=== PATIENT | female | born 1955 | race Caucasian/White ===

== ENCOUNTER 2019-08-02 14:40 | Outpatient (CLI) | payer BC, SELFPAY ==
[2019-08-02 14:53] LABS: Basophils Percent Auto 0.8 % (0.2-1.2); Eosinophils Absolute Auto 0.1 K/mm3 (0-0.3); Eosinophils Percent Auto 1.9 % (0-4.4); Hematocrit 36.5 % (37.0-47.0); Hemoglobin 12.4 g/dL (12.0-15.0); Immature Granulocyte Absolute 0.01 K/mm3 (0.00-0.031); Immature Granulocyte Percent A 0.2 % (0-0.5); Lymphocytes Absolute Auto 2.95 K/mm3 (0.9-3.2); Lymphocytes Percent Auto 56.1 % (18.3-44.2); Mean Corpuscular Volume 97.1 fl (80-100); Mean Platelet Volume 9.7 fl (7.4-10.4); Monocytes Absolute Auto 0.6 K/mm3 (0.1-0.6); Monocytes Percent Auto 11.4 % (2.6-8.5); Neutrophils Absolute Auto 1.6 K/mm3 (1.3-6.7); Neutrophils Percent Auto 29.6 % (45.5-73.1); Platelet Count Result 218 k/mm3 (150-375); Red Blood Count 3.76 M/mm3 (4.2-5.4); Red Cell Distribution Width 12.7 % (11.5-14.5); White Blood Count 5.3 K/mm3 (4.5-10.0)
[2019-08-02 16:04] LABS: Alanine Aminotransferase 23 U/L (4-35); Albumin Level 4.5 g/dL (3.5-5.1); Alkaline Phosphatase 45 U/L (38-126); Aspartate Amino Transferase 30 U/L (14-36); Bilirubin,Total 0.5 mg/dL (0.2-1.3); Blood Urea Nitrogen 17 mg/dL (7-17); Calcium 9.7 mg/dL (8.4-10.2); Carbon Dioxide 27 mmol/L (22-30); Chloride 95 mmol/L (98-107); Estimated Glomerular Filt Rate 56; Glucose 97 mg/dL (65-105); Lactate Dehydrogenase 405 U/L (313-618); Potassium 4.2 mmol/L (3.4-5.0); Sodium 132 mmol/L (137-145)
== END 2019-08-02 14:41 | disposition home or self-care (01) ==
LOC: ANHLAB 14:43
PROVIDERS: PCP Family Medicine; Visit Provider Internal Medicine Hematology & Oncology
DX: D72.820 Lymphocytosis (symptomatic) (principal)
CPT/HCPCS: 36415; 80053; 83615; 85025

== ENCOUNTER 2020-01-30 13:22 | Outpatient (CLI) | payer BC, SELFPAY ==
[2020-01-30 13:42] LABS: Basophils Percent Auto 0.6 % (0.2-1.2); Eosinophils Absolute Auto 0.1 K/mm3 (0-0.3); Eosinophils Percent Auto 1.2 % (0-4.4); Hemoglobin 12.5 g/dL (12.0-15.0); Immature Granulocyte Absolute 0.01 K/mm3 (0.00-0.031); Immature Granulocyte Percent A 0.2 % (0-0.5); Lymphocytes Absolute Auto 2.17 K/mm3 (0.9-3.2); Lymphocytes Percent Auto 44.4 % (18.3-44.2); Mean Corpuscular HGB Conc 32.9 g/dl (32-36); Mean Corpuscular Hemoglobin 32.1 pg (26-34); Mean Corpuscular Volume 97.4 fl (80-100); Mean Platelet Volume 9.7 fl (7.4-10.4); Monocytes Absolute Auto 0.6 K/mm3 (0.1-0.6); Monocytes Percent Auto 11.2 % (2.6-8.5); Neutrophils Absolute Auto 2.1 K/mm3 (1.3-6.7); Neutrophils Percent Auto 42.4 % (45.5-73.1); Platelet Count Result 213 k/mm3 (150-375); Red Cell Distribution Width 13.2 % (11.5-14.5); White Blood Count 4.9 K/mm3 (4.5-10.0)
[2020-01-30 16:40] LABS: Sodium Urine Random 108 meq/L
[2020-01-30 16:43] LABS: Alanine Aminotransferase 21 U/L (4-35); Albumin Level 4.5 g/dL (3.5-5.1); Alkaline Phosphatase 48 U/L (38-126); Anion Gap 12.1 mmol/L (7-16); Aspartate Amino Transferase 29 U/L (14-36); Bilirubin,Total 0.7 mg/dL (0.2-1.3); Blood Urea Nitrogen 12 mg/dL (7-17); Calcium 9.7 mg/dL (8.4-10.2); Carbon Dioxide 28 mmol/L (22-30); Chloride 101 mmol/L (98-107); Cholesterol 200 mg/dL (0-200); Estimated Glomerular Filt Rate > 60; Glucose 119 mg/dL (65-105); HDL Direct 73 mg/dL; Lactate Dehydrogenase 375 U/L (313-618); Potassium 5.1 mmol/L (3.4-5.0); Sodium 136 mmol/L (137-145); Triglycerides 61 mg/dL (<150)
[2020-01-30 16:54] LABS: LDL Cholesterol Direct 104 mg/dL
== END 2020-01-30 13:23 | disposition home or self-care (01) ==
PROVIDERS: PCP Family Medicine; Visit Provider Internal Medicine Hematology & Oncology
DX: E78.2 Mixed hyperlipidemia (principal); I10 Essential (primary) hypertension; E87.1 Hypo-osmolality and hyponatremia; D72.820 Lymphocytosis (symptomatic)
CPT/HCPCS: 36415; 80053; 80061; 83615; 84300; 85025

== ENCOUNTER 2020-10-16 10:48 | Outpatient (CLI) | payer BC, SELFPAY ==
--- NOTE | ~2020-10-16 | MM_ITS ---
EXAMINATION: MM screening teresita BI w gissel HISTORY: Screening TECHNIQUE: Craniocaudal and mediolateral oblique 3-D tomosynthesis images were obtained and synthetic 2-D images were generated. CAD analysis was submitted and interpreted. COMPARISON: Comparison to multiple prior studies sequentially, with oldest reviewed study dated 03/17. BREAST PARENCHYMAL COMPOSITION: There are scattered areas of fibroglandular density. FINDINGS: There is no evidence of suspicious mass, calcification, or architectural distortion to sugg est malignancy in either breast. There has been no suspicious interval change. IMPRESSION: 1. No mammographic evidence of malignancy. 2. Recommend routine screening mammography in one year. BI-RADS Category 1: Negative Reviewed, dictated and finalized at location A.
== END 2020-10-16 10:49 | disposition home or self-care (01) ==
PROVIDERS: PCP Family Medicine; Visit Provider Family Medicine
DX: Z12.31 Encounter for screening mammogram for malignant neoplasm of breast (principal)
CPT/HCPCS: 77063; 77067

== ENCOUNTER 2020-11-19 11:13 | Outpatient (CLI) | payer BC, SELFPAY ==
[2020-11-19 11:35] LABS: Basophils Percent Auto 0.8 % (0.2-1.2); Eosinophils Absolute Auto 0.1 K/mm3 (0-0.3); Eosinophils Percent Auto 1.2 % (0-4.4); Hematocrit 37.7 % (37.0-47.0); Hemoglobin 12.8 g/dL (12.0-15.0); Immature Granulocyte Absolute 0.01 K/mm3 (0.00-0.031); Immature Granulocyte Percent A 0.2 % (0-0.5); Lymphocytes Absolute Auto 2.37 K/mm3 (0.9-3.2); Lymphocytes Percent Auto 48.9 % (18.3-44.2); Mean Corpuscular Hemoglobin 32.6 pg (26-34); Mean Corpuscular Volume 95.9 fl (80-100); Monocytes Absolute Auto 0.5 K/mm3 (0.1-0.6); Monocytes Percent Auto 10.3 % (2.6-8.5); Neutrophils Absolute Auto 1.9 K/mm3 (1.3-6.7); Neutrophils Percent Auto 38.6 % (45.5-73.1); Platelet Count Result 217 k/mm3 (150-375); Red Blood Count 3.93 M/mm3 (4.2-5.4); Red Cell Distribution Width 13.9 % (11.5-14.5); White Blood Count 4.9 K/mm3 (4.5-10.0)
[2020-11-19 16:50] LABS: Anion Gap 4 mmol/L (8-16); Blood Urea Nitrogen 12 mg/dL (7-17); Calcium 9.9 mg/dL (8.4-10.2); Carbon Dioxide 30 mmol/L (22-30); Chloride 103 mmol/L (98-107); Estimated Glomerular Filt Rate > 60; Glucose 115 mg/dL (65-105); Lactate Dehydrogenase 415 U/L (313-618); Potassium 4.6 mmol/L (3.4-5.0); Sodium 137 mmol/L (137-145)
== END 2020-11-19 11:14 | disposition home or self-care (01) ==
PROVIDERS: PCP Family Medicine; Visit Provider Internal Medicine Hematology & Oncology
DX: D72.820 Lymphocytosis (symptomatic) (principal)
CPT/HCPCS: 36415; 80048; 83615; 85025

== ENCOUNTER 2021-10-12 14:09 | Outpatient (CLI) | payer OTHER, SELFPAY ==
--- NOTE | ~2021-10-12 | XR_ITS ---
EXAMINATION: XR chest 2V Exam Date/Time: 10/12/2021 14:15 CDT CLINICAL HISTORY: R05.9 - Cough, unspecifiedX 1WEEK, NO KNOWN MED HX Comparison: None available RESULT: Lines, tubes, and devices: None. Lungs and pleura: Clear. Cardiomediastinal silhouette: Normal cardiomediastinal silhouette. Other: No acute osseous or upper abdominal finding. IMPRESSION: No acute cardiopulmonary process. Reviewed, dictated and finalized at location K.
== END 2021-10-12 14:10 | disposition home or self-care (01) ==
LOC: ANHIMG 14:11
PROVIDERS: PCP Internal Medicine; Visit Provider Clinical Nurse Specialist
DX: R05.9 Cough, unspecified (principal)
CPT/HCPCS: 71046

== ENCOUNTER 2021-11-20 10:24 | Outpatient (CLI) | payer OTHER, SELFPAY ==
--- NOTE | ~2021-11-20 | MM_ITS ---
EXAMINATION: MM screening [facility] BI w gissel HISTORY: Screening mammogram TECHNIQUE: Craniocaudal and mediolateral oblique 3-D tomosynthesis images were obtained and synthetic 2-D images were generated. CAD analysis was submitted and interpreted. COMPARISON: 10/16/2020, 05/30/2019, 05/24/2018 BREAST PARENCHYMAL COMPOSITION: There are scattered areas of fibroglandular density. FINDINGS: There is no suspicious mass, calcification, or architectural distortion to suggest malignan cy in either breast. There has been no suspicious interval change. IMPRESSION: 1. No mammographic evidence of malignancy. 2. Recommend routine screening mammography in one year. BI-RADS Category 1: Negative Reviewed, dictated and finalized at location A.
== END 2021-11-20 10:25 | disposition home or self-care (01) ==
LOC: ANHIMG 10:26
PROVIDERS: PCP Internal Medicine; Visit Provider Internal Medicine
DX: Z12.31 Encounter for screening mammogram for malignant neoplasm of breast (principal)
CPT/HCPCS: 77063; 77067

== ENCOUNTER 2021-11-20 10:38 | Outpatient (CLI) | payer OTHER, SELFPAY ==
[2021-11-20 11:12] LABS: Basophils Percent Auto 0.8 % (0.2-1.2); Eosinophils Absolute Auto 0.1 K/mm3 (0-0.3); Eosinophils Percent Auto 1.3 % (0-4.4); Hematocrit 38.2 % (37.0-47.0); Hemoglobin 12.8 g/dL (12.0-15.0); Immature Granulocyte Absolute 0.01 K/mm3 (0.00-0.031); Immature Granulocyte Percent A 0.2 % (0-0.5); Lymphocytes Absolute Auto 2.48 K/mm3 (0.9-3.2); Lymphocytes Percent Auto 46.5 % (18.3-44.2); Mean Corpuscular HGB Conc 33.5 g/dl (32-36); Mean Corpuscular Hemoglobin 32.7 pg (26-34); Mean Corpuscular Volume 97.4 fl (80-100); Mean Platelet Volume 9.2 fl (7.4-10.4); Monocytes Absolute Auto 0.6 K/mm3 (0.1-0.6); Monocytes Percent Auto 10.3 % (2.6-8.5); Neutrophils Absolute Auto 2.2 K/mm3 (1.3-6.7); Neutrophils Percent Auto 40.9 % (45.5-73.1); Platelet Count Result 241 k/mm3 (150-375); Red Blood Count 3.92 M/mm3 (4.2-5.4); Red Cell Distribution Width 13.1 % (11.5-14.5); White Blood Count 5.3 K/mm3 (4.5-10.0)
[2021-11-20 13:14] LABS: Cholesterol 210 mg/dL (0-200); HDL Direct 69 mg/dL; Triglycerides 72 mg/dL (<150)
[2021-11-20 13:17] LABS: Alanine Aminotransferase 22 U/L (6-35); Albumin Level 4.6 g/dL (3.5-5.1); Alkaline Phosphatase 54 U/L (38-126); Anion Gap 6 mmol/L (8-16); Aspartate Amino Transferase 37 U/L (14-36); Bilirubin,Total 0.5 mg/dL (0.2-1.3); Blood Urea Nitrogen 11 mg/dL (7-17); Calcium 9.1 mg/dL (8.4-10.2); Carbon Dioxide 28 mmol/L (22-30); Chloride 100 mmol/L (98-107); Estimated Glomerular Filt Rate > 60; Glucose 105 mg/dL (65-110); Lactate Dehydrogenase 489 U/L (313-618); Potassium 4.9 mmol/L (3.4-5.0); Sodium 134 mmol/L (137-145)
[2021-11-20 13:25] LABS: LDL Cholesterol Direct 98 mg/dL
[2021-11-20 13:31] LABS: Vitamin D 25 Hydroxy 44.7 ng/mL
== END 2021-11-20 10:39 | disposition home or self-care (01) ==
LOC: ANHLAB 10:40
PROVIDERS: Nurse Practitioner; PCP Internal Medicine; Visit Provider Internal Medicine Hematology & Oncology
DX: E55.9 Vitamin D deficiency, unspecified (principal); D72.820 Lymphocytosis (symptomatic); R79.89 Other specified abnormal findings of blood chemistry; E78.2 Mixed hyperlipidemia
CPT/HCPCS: 36415; 77063; 77067; 80053; 80061; 82306; 83615; 85025

== ENCOUNTER 2022-02-15 12:49 | Outpatient (CLI) | payer OTHER, SELFPAY ==
--- NOTE | ~2022-02-15 | DEXA_ITS ---
Bone Density Report Name: YA MORTON Age: 66 Sex: Female Ethnicity: White Date of : 1955 Indication: postmenopausal; screening for osteoporosis; height loss; Referring Provider: DURAN ALEXANDER Study: Bone densitometry was performed. Exam Date: February 15, 2022 Accession number: [id number] Bone Density: Region BMD T-score Z-score Classification AP Spine(L1-L4) 1.015 -0.3 1.6 Normal Femoral Neck (Left) 0.808 -0.4 1.2 Normal Total Hip (Left) 0.967 0.2 1.5 Normal Femoral Neck (Right) 0.797 -0.5 1.1 Normal Total Hip (Right) 0.990 0.4 1.7 Normal Total Hip Mean 0.978 0.3 1.6 Normal World Health Organization criteria for BMD impression classify patients as: Normal (T-score at or above -1.0), Osteopenia (T-score between -1.0 and -2.5), or Osteoporosis (T-score at or below -2.5). 10-year Fracture Risk: FRAX not reported because: All T-scores for Spine Total, Hip Total, Femoral Neck at or above -1.0 Clinical Information Provided by Patient: Patient maximum height was 64.5 Menopause Age: 48 Onset of menses at age 15 Number of children 1 Impression: The patient has normal bone mass. Discussion: BONE DENSITY IS ABOVE THE MINIMUM DESIRABLE LEVEL AT ALL SKELETAL SITES TESTED. This patient?s bone mineral density is above the minimum desirable level (T-score -1.0 or better) at all sites measured. The patient should follow a healthful lifestyle (good nutrition with adequate calcium and vitamin D, and appropriate weight-bearing exercise). Follow-Up: Consider repeating this study in 5 years or sooner if there is some new clinical indication. Reported by: ALBARO on 02/15/2022 1:05:00 PM. Reviewed, dictated and finalized at location AAta [facility]
== END 2022-02-15 12:50 | disposition home or self-care (01) ==
LOC: ANHIMG 12:51
PROVIDERS: PCP Internal Medicine; Visit Provider Nurse Practitioner
DX: Z78.0 Asymptomatic menopausal state (principal)
CPT/HCPCS: 77080

== ENCOUNTER 2022-03-29 15:52 | Outpatient (NON) | payer OTHER, SELFPAY ==
[2022-03-29 19:55] LABS: Appearance Urine Clear (Clear); Bilirubin Urine Negative (Negative); Blood Urine 1+ (Negative); Color Urine Yellow (Yellow); Glucose Urine UA Negative (Negative); Ketones Urine Negative (Negative); Leukocyte Esterase Ur 2+ LEU/UL (Negative); Nitrate Urine Negative (Negative); Protein Urine Negative (Negative); Urobilinogen Urine 0.2 mg/dL (<2.0); pH Urine 6.5 (5.0-9.0)
[2022-03-29 20:02] LABS: RBC Urine 0-2 /hpf (0-2)
[2022-03-29 20:19] LABS: Add Urine Microscopic? YES
== END 2022-03-29 15:53 | disposition home or self-care (01) ==
LOC: ANHGOSHLAB 15:54
PROVIDERS: PCP Internal Medicine; Visit Provider Clinical Nurse Specialist
DX: R30.0 Dysuria (principal)
CPT/HCPCS: 81001

== ENCOUNTER 2022-05-10 00:14 | Day surgery (SDC) | payer OTHER, SELFPAY ==
[2022-05-03 14:25] VITALS: BMI 28.8
--- NOTE | 2022-05-09 19:57 | PM.HPGS ---
History of Present Illness History of Present Illness Consent: Risks, benefits, and alternatives have been discussed and questions answered. Patient agrees to proceed with procedure. Chief complaint: hx colon polyps Narrative: Hilda Mixon is a 67 year old female here for colon cancer screening. She has had polyps n the past Review of Systems Review of Systems: All systems reviewed & are unremarkable except as noted in HPI and below Gastrointestinal: Comments: She has issues with constipation. She uses a stool softener. She also occasionally uses MiraLax. She had tried taking Metamucil, but felt that it made the situation worse. [facility] Past Medical History Medical History Gastric ulcer GERD (gastroesophageal reflux disease) Lymphocytosis Mixed hyperlipidemia Pancytopenia Pollen allergies Surgical History Surgical History History of bilateral carpal tunnel release (~2000) S/P lateral meniscal repair (~2015) 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 Family History Family History Father Carcinoma of colon Heart disease Thyroid disorder Sibling Carcinoma of colon, Onset Age: 56 Depression Anxiety Mother Diabetes mellitus Hypertension Grandparent Alcoholism Social History Social History Social History: Caffeine-none Smoking packs per day: 1 Smoking cigarettes per day: 20.0 Years smoked: 30 Smoking pack-years: 30.00 Smoking status: Never smoker Tobacco type: cigarettes Second hand tobacco smoke exposure: No Smoking end date: 07/04/02 Alcohol intake: current Drinks per week: 8 Alcohol use details: wine Substance use: never Substance use type: does not use Living arrangements: alone Gender identity (if verbalized by the patient): Female Sexual Orientation (if Verbalized by the Patient): Straight or Heterosexual Spiritual care concerns: No Agree to blood products: Yes Meds Home Medications and Allergies Home Medications Medication Instructions Recorded Confirmed Type levocetirizine 5 mg tablet 10 mg PO DAILY 11/20/20 05/03/22 History (Allergy Relief (levocetirizine)) omeprazole 40 mg capsule,delayed 40 mg PO DAILY #90 caps 11/28/20 05/03/22 Rx release montelukast 10 mg tablet 10 mg PO DAILY #90 tabs 06/30/21 05/03/22 Rx (Singulair) celecoxib 200 mg capsule (Celebrex) 200 mg PO BID PRN pain #180 caps 07/21/21 05/03/22 Rx docusate sodium 100 mg capsule 100 mg PO DAILY 07/21/21 05/03/22 History (Colace) metoprolol tartrate 25 mg tablet 25 mg PO BID #180 tabs 01/25/22 05/03/22 Rx atorvastatin 10 mg tablet 10 mg PO .COMPLEX #90 tabs 03/29/22 05/03/22 Rx Allergies Allergy/AdvReac Type Severity Reaction Status Date / Time No Known Allergies Allergy Verified 05/10/22 10:07 Exam Resp: Auscultation: clear to auscultation bilaterally Cardio: Rate: regular rate Rhythm: regular rhythm GI: GI Palp: Yes Soft to palpation and No Tenderness to palpation present (GI) Assessment and Plan Assessment and plan (1) Screening for colon cancer: Code(s): Z12.11 - Encounter for screening for malignant neoplasm of colon Status: Acute Assessment and Plan: Colonoscopy with possible biopsy or polypectomy or cautery or injection of substances.
[2022-05-10 10:08] VITALS: BP 134/77; PULSE 66; RESP 20; TEMP 36.3; O2SAT 95; BMI 29.0
[2022-05-10] MEDS: LACTATED RINGERS 1,000 ML 150 ML IV CONT (10:17)
--- NOTE | 2022-05-10 10:59 | WPDANESEPPF ---
Anes - Initial Pre Proc Eval Procedure: Operation Date: 05/10/22 11:30 Proposed Procedures p Screening Colonoscopy - Mika Fernandez MD Date/Time: 05/10/22 10:59 Surgeon: Mika Fernandez MD Pre Op Diagnosis: hx colon polyps Patient Data Age: 67 Gender: F Height: 1.6 m Weight: 74.4 kg Last Vital Signs Temp 97.4 F L 05/10/22 10:08 Pulse 66 05/10/22 10:08 Resp 20 05/10/22 10:08 BP 134/77 05/10/22 10:08 Pulse Ox 95 05/10/22 10:08 O2 Del Method Room Air 05/10/22 10:08 Allergies Allergy/AdvReac Type Severity Reaction Status Date / Time No Known Allergies Allergy Verified 05/10/22 10:07 Home Medications Medication Instructions Recorded Confirmed Type levocetirizine 5 mg tablet 10 mg PO DAILY 11/20/20 05/03/22 History (Allergy Relief (levocetirizine)) omeprazole 40 mg capsule,delayed 40 mg PO DAILY #90 caps 11/28/20 05/03/22 Rx release montelukast 10 mg tablet 10 mg PO DAILY #90 tabs 06/30/21 05/03/22 Rx (Singulair) celecoxib 200 mg capsule (Celebrex) 200 mg PO BID PRN pain #180 caps 07/21/21 05/03/22 Rx docusate sodium 100 mg capsule 100 mg PO DAILY 07/21/21 05/03/22 History (Colace) metoprolol tartrate 25 mg tablet 25 mg PO BID #180 tabs 01/25/22 05/03/22 Rx atorvastatin 10 mg tablet 10 mg PO .COMPLEX #90 tabs 03/29/22 05/03/22 Rx Patient hx anesthesia problems: none Family hx anesthesia problems: none Results Review: All pre-operative results and documents have been reviewed as part of the pre-operative evaluation. [facility] Past Medical History Medical History Gastric ulcer GERD (gastroesophageal reflux disease) Lymphocytosis Mixed hyperlipidemia Pancytopenia Pollen allergies Surgical History Surgical History History of bilateral carpal tunnel release (~2000) S/P lateral meniscal repair (~2015) 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 Family History Family History Father Carcinoma of colon Heart disease Thyroid disorder Sibling Carcinoma of colon, Onset Age: 56 Depression Anxiety Mother Diabetes mellitus Hypertension Grandparent Alcoholism Social History Social History Social History: Caffeine-none Smoking packs per day: 1 Smoking cigarettes per day: 20.0 Years smoked: 30 Smoking pack-years: 30.00 Smoking status: Never smoker Tobacco type: cigarettes Second hand tobacco smoke exposure: No Smoking end date: 07/04/02 Alcohol intake: current Drinks per week: 8 Alcohol use details: wine Substance use: never Substance use type: does not use Living arrangements: alone Gender identity (if verbalized by the patient): Female Sexual Orientation (if Verbalized by the Patient): Straight or Heterosexual Spiritual care concerns: No Agree to blood products: Yes Anes - Eval Final PreProcedure Day of Procedure 05/10/22 10:59 Patient weight: normal Heart: regular rate and rhythm Lungs: clear to auscultation Airway: Mallampati scale class II Neurological: alert and oriented Last oral intake: >/= 8 hours ASA classification: II Emergent: no Anesthetic plan: proceed Anesthesia type and monitoring: general GIVS and standard monitoring Results Review: All pre-operative results and documents have been reviewed as part of the pre-operative evaluation. Informed Consent: The patient's anesthetic plan and its attendant risks and benefits were discussed with the patient/family/POA. Questions were solicited and answers provided to the satisfaction of the patient/family/POA.
[2022-05-10 11:52] VITALS: BP 114/77; PULSE 64; RESP 16; O2SAT 98
[2022-05-10 12:02] VITALS: BP 124/78; PULSE 62; RESP 18; O2SAT 98
[2022-05-10 12:12] VITALS: BP 121/70; PULSE 60; RESP 18; O2SAT 100
== END 2022-05-10 12:19 | disposition home or self-care (01) ==
PROVIDERS: PCP Internal Medicine; Visit Provider Internal Medicine Gastroenterology
PROC: 0DJD8ZZ Inspection of Lower Intestinal Tract, Via Natural or Artificial Opening Endoscopic (ICD-10-PCS; CPT 45378; principal; 2022-05-10 11:30)
DX: Z12.11 Encounter for screening for malignant neoplasm of colon (principal); Z86.010 Personal history of colon polyps; K57.30 Diverticulosis of large intestine without perforation or abscess without bleeding; K21.9 Gastro-esophageal reflux disease without esophagitis; E78.5 Hyperlipidemia, unspecified; Z87.891 Personal history of nicotine dependence
CPT/HCPCS: G0105; J2704; J7120

== ENCOUNTER → 2022-08-19 11:29 | Outpatient (CLI) | payer OTHER, SELFPAY ==
--- NOTE | ~2022-08-19 | XR_ITS ---
XR knee LT 3V 08/19/2022 11:53 Indication: Left knee pain Procedure: 3 views left knee Comparison: No prior studies for comparison. Findings: There is mild-moderate tricompartment osteoarthritis of the left knee. No fracture, subluxa tion or dislocation. No significant joint effusion. No foreign bodies. Impression: 1: Mild-moderate osteoarthritis of the left knee. Reviewed, dictated and finalized at location A. CLING MANAGER Impression: 1: Mild-moderate osteoarthritis of the left knee.
== END ==
PROVIDERS: PCP Internal Medicine; Visit Provider Clinical Nurse Specialist
DX: M17.12 Unilateral primary osteoarthritis, left knee (principal)
CPT/HCPCS: 73562

== ENCOUNTER 2022-11-19 09:01 | Outpatient (CLI) | payer OTHER, SELFPAY ==
[2022-11-19 09:18] LABS: Basophils Absolute Auto 0.1 K/mm3 (0.0-0.1); Eosinophils Absolute Auto 0.1 K/mm3 (0-0.3); Eosinophils Percent Auto 1.7 % (0-4.4); Hematocrit 38.2 % (37.0-47.0); Hemoglobin 12.7 g/dL (12.0-15.0); Immature Granulocyte Absolute 0.01 K/mm3 (0.00-0.031); Immature Granulocyte Percent A 0.2 % (0-0.5); Lymphocytes Absolute Auto 2.93 K/mm3 (0.9-3.2); Lymphocytes Percent Auto 61.2 % (18.3-44.2); Mean Corpuscular HGB Conc 33.2 g/dl (32-36); Mean Corpuscular Hemoglobin 32.6 pg (26-34); Mean Corpuscular Volume 97.9 fl (80-100); Mean Platelet Volume 9.4 fl (7.4-10.4); Monocytes Absolute Auto 0.5 K/mm3 (0.1-0.6); Monocytes Percent Auto 10.6 % (2.6-8.5); Neutrophils Absolute Auto 1.2 K/mm3 (1.3-6.7); Neutrophils Percent Auto 25.3 % (45.5-73.1); Platelet Count Result 223 k/mm3 (150-375); White Blood Count 4.8 K/mm3 (4.5-10.0)
[2022-11-19 10:28] LABS: Alanine Aminotransferase 21 U/L (6-35); Albumin Level 4.5 g/dL (3.5-5.1); Alkaline Phosphatase 50 U/L (38-126); Anion Gap 3 mmol/L (8-16); Aspartate Amino Transferase 32 U/L (14-36); Bilirubin,Total 0.5 mg/dL (0.2-1.3); Blood Urea Nitrogen 13 mg/dL (7-17); Calcium 8.9 mg/dL (8.4-10.2); Carbon Dioxide 31 mmol/L (22-30); Chloride 100 mmol/L (98-107); Cholesterol 203 mg/dL (0-200); Estimated Glomerular Filt Rate > 60; Glucose 97 mg/dL (65-110); HDL Direct 68 mg/dL; Potassium 4.6 mmol/L (3.4-5.0); Sodium 134 mmol/L (137-145); Triglycerides 80 mg/dL (<150)
[2022-11-19 10:39] LABS: LDL Cholesterol Direct 99 mg/dL
[2022-11-19 10:45] LABS: Vitamin D 25 Hydroxy 39.1 ng/mL
== END 2022-11-19 09:02 | disposition home or self-care (01) ==
LOC: ANHLAB 09:02
PROVIDERS: Clinical Nurse Specialist; PCP Internal Medicine; Visit Provider Internal Medicine Hematology & Oncology
DX: R79.89 Other specified abnormal findings of blood chemistry (principal); D72.820 Lymphocytosis (symptomatic); R00.2 Palpitations; E78.2 Mixed hyperlipidemia; E55.9 Vitamin D deficiency, unspecified
CPT/HCPCS: 36415; 80053; 80061; 82306; 84443; 85025

== ENCOUNTER 2023-01-13 15:01 | Outpatient (CLI) | payer OTHER, SELFPAY ==
--- NOTE | ~2023-01-13 | MM_ITS ---
EXAMINATION: MM screening teresita BI w gissel HISTORY: Screening mammogram TECHNIQUE: Craniocaudal and mediolateral oblique 3-D tomosynthesis images were obtained and synthetic 2-D images were generated. CAD analysis was submitted and interpreted. COMPARISON: 11/20/2021, 10/16/2020, 05/30/2019 bilateral screening mammogram examinations BREAST PARENCHYMAL COMPOSITION: There are scattered areas of fibroglandular density. FINDINGS: There is no evidence of suspicious mass, calcification, or architectural distortion to sugg est malignancy in either breast. There has been no suspicious interval change. IMPRESSION: 1. No mammographic evidence of malignancy. 2. Recommend routine screening mammography in one year. BI-RADS Category 1: Negative Reviewed, dictated and finalized at location A.
== END 2023-01-13 15:02 | disposition home or self-care (01) ==
PROVIDERS: PCP Internal Medicine; Visit Provider Internal Medicine
DX: Z12.31 Encounter for screening mammogram for malignant neoplasm of breast (principal)
CPT/HCPCS: 77063; 77067

== ENCOUNTER 2023-02-01 13:15 | Outpatient (CLI) | payer OTHER, SELFPAY ==
[2023-02-01 13:27] LABS: Basophils Percent Auto 0.7 % (0.2-1.2); Eosinophils Absolute Auto 0.1 K/mm3 (0-0.3); Eosinophils Percent Auto 1.4 % (0-4.4); Hemoglobin 12.2 g/dL (12.0-15.0); Immature Granulocyte Absolute 0.01 K/mm3 (0.00-0.031); Immature Granulocyte Percent A 0.2 % (0-0.5); Lymphocytes Absolute Auto 2.15 K/mm3 (0.9-3.2); Lymphocytes Percent Auto 49.2 % (18.3-44.2); Mean Corpuscular HGB Conc 33.9 g/dl (32-36); Mean Corpuscular Hemoglobin 32.5 pg (26-34); Mean Platelet Volume 8.5 fl (7.4-10.4); Monocytes Absolute Auto 0.6 K/mm3 (0.1-0.6); Monocytes Percent Auto 12.6 % (2.6-8.5); Neutrophils Absolute Auto 1.6 K/mm3 (1.3-6.7); Neutrophils Percent Auto 35.9 % (45.5-73.1); Platelet Count Result 209 k/mm3 (150-375); Red Blood Count 3.75 M/mm3 (4.2-5.4); Red Cell Distribution Width 12.7 % (11.5-14.5); White Blood Count 4.4 K/mm3 (4.5-10.0)
[2023-02-01 15:36] LABS: Alanine Aminotransferase 20 U/L (6-35); Albumin Level 4.2 g/dL (3.5-5.1); Alkaline Phosphatase 52 U/L (38-126); Anion Gap 5 mmol/L (8-16); Aspartate Amino Transferase 27 U/L (14-36); Bilirubin,Total 0.6 mg/dL (0.2-1.3); Blood Urea Nitrogen 10 mg/dL (7-17); Carbon Dioxide 27 mmol/L (22-30); Chloride 93 mmol/L (98-107); Estimated Glomerular Filt Rate > 60; Glucose 105 mg/dL (65-110); Potassium 4.4 mmol/L (3.4-5.0); Sodium 125 mmol/L (137-145)
== END 2023-02-01 13:16 | disposition home or self-care (01) ==
PROVIDERS: Clinical Nurse Specialist; PCP Internal Medicine; Visit Provider Internal Medicine Hematology & Oncology
DX: D61.818 Other pancytopenia (principal); R00.2 Palpitations
CPT/HCPCS: 36415; 80053; 85025

== ENCOUNTER 2023-02-02 08:48 | Outpatient (CLI) | payer OTHER, SELFPAY ==
[2023-02-02 10:31] LABS: Anion Gap 7 mmol/L (8-16); Blood Urea Nitrogen 11 mg/dL (7-17); Calcium 9.6 mg/dL (8.4-10.2); Carbon Dioxide 29 mmol/L (22-30); Chloride 98 mmol/L (98-107); Estimated Glomerular Filt Rate 55; Glucose 104 mg/dL (65-110); Potassium 4.7 mmol/L (3.4-5.0); Sodium 134 mmol/L (137-145)
[2023-02-02 15:42] LABS: Appearance Urine Clear (Clear); Bacteria Urine None Seen /hpf; Bilirubin Urine Negative (Negative); Blood Urine Negative (Negative); Color Urine Yellow (Yellow); Glucose Urine UA Negative (Negative); Ketones Urine Negative (Negative); Leukocyte Esterase Ur 1+ LEU/UL (Negative); Need Manual Microscopic Reviewed; Nitrate Urine Negative (Negative); Non Pathogenic Casts 0-2; Protein Urine Negative (Negative); RBC Urine 0-2 /hpf (0-2); Specific Grav Ur 1.007 (1.001-1.035); Squamous Epithelial Cell Urine None seen /hpf (Few); Urobilinogen Urine 0.2 mg/dL (<2.0); WBC Urine 0-5 /hpf; pH Urine 7.5 (5.0-9.0)
[2023-02-02 15:44] LABS: Add Urine Microscopic? YES; Sodium Urine Random 58 meq/L
[2023-02-04 20:29] LABS: Osmolality, Urine 234 mOsm/kg (50-1200)
== END 2023-02-02 08:49 | disposition home or self-care (01) ==
LOC: ANHLAB 08:50
PROVIDERS: PCP Internal Medicine; Visit Provider Clinical Nurse Specialist
DX: E87.1 Hypo-osmolality and hyponatremia (principal)
CPT/HCPCS: 36415; 80048; 81001; 83930; 83935; 84300

== ENCOUNTER 2023-05-25 13:33 | Emergency (ER) | payer OTHER, SELFPAY ==
--- NOTE | ~2023-05-25 | XR_ITS ---
EXAMINATION: XR chest 2V 05/25/2023 14:26 INDICATION: Chest palpitations and shortness of breath PROCEDURE: 2 view chest COMPARISON: 10/12/2021 FINDINGS: The lungs are clear. The cardiomediastinal silhouette is within normal limits. There are no pleural effusions. There is no pneumothorax suspected. IMPRESSION: 1: NO ACUTE CARDIOPULMONARY DISEASE. Reviewed, dictated and finalized at location B. TOUCH UP INSPECTOR
--- NOTE | 2023-05-25 13:41 | ECG_ITS ---
Measurements Intervals [place] Rate: 60 P: 43 CO: 238 QRS: 4 QRSD: 138 T: -7 QT: 436 QTc: 436 Interpretive Statements SINUS RHYTHM WITH FIRST DEGREE AV BLOCK RIGHT BUNDLE BRANCH BLOCK LOW VOLTAGE- PRECORDIAL LEADS BASELINE ARTIFACT- I, AVR ABNORMAL ECG NO PREVIOUS ECG AVAILABLE FOR COMPARISON Electronically Signed On 05-25-2023 20:02:50 VALUE ANALYST by Xavier Velez D.O.
[2023-05-25 13:44] VITALS: BP 141/92; PULSE 64; RESP 18; TEMP 36.1; O2SAT 98
--- NOTE | 2023-05-25 14:14 | ED.ARRPALP ---
HPI - Arrhythmia/Palpitations General Chief Complaint: Arrhythmia/Palpitations Stated Complaint: palpitations Time Seen by Provider: 05/25/23 14:14 Source: patient Mode of arrival: ambulatory Limitations: no limitations History of Present Illness HPI narrative: 68 YEARS OLD WHITE FEMALE CAME TO THE EMERGENCY ROOM BY PRIVATE CAR FROM HOME COMPLAINING OF 1 EPISODE OF FLUTTERING, PALPITATION YESTERDAY AT REST LASTED FOR 1 HOUR. AGAIN TODAY LASTED FOR 20 MINUTES. SHE DENIES ANY CHEST PAIN OR SHORTNESS OF BREATH AT THE TIME. HISTORY OF PALPITATION SECONDARY TO BENIGN CAUSE AND CURRENTLY ON METOPROLOL 25 MG B.I.D. FOR THE PALPITATION. PATIENT BELIEVES THE PALPITATION YESTERDAY AND TODAY FEELS DIFFERENT THAN HER REGULAR PALPITATION. SHE DENIES ANY FEVER, CHILLS, NAUSEA, VOMITING, CHEST PAIN, SHORTNESS OF BREATH, BACK PAIN, HEADACHE. CURRENTLY PATIENT IS ASYMPTOMATIC BUT FEELS WEAK. Related Data Home Medications Medication Instructions Recorded Confirmed levocetirizine 5 mg tablet 10 mg PO DAILY PRN 09/15/22 03/09/23 (Allergy Relief (levocetirizine)) Allergies Allergy/AdvReac Type Severity Reaction Status Date / Time No Known Allergies Allergy Verified 05/25/23 14:33 Review of Systems Review of Systems: All systems reviewed & are unremarkable except as noted in HPI and below PMFSH Past Medical History Medical History Gastric ulcer GERD (gastroesophageal reflux disease) Lymphocytosis Mixed hyperlipidemia Pancytopenia Pollen allergies Surgical History Surgical History History of bilateral carpal tunnel release (~2000) S/P lateral meniscal repair (~2015) 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 Family History Family History Father Carcinoma of colon Heart disease Thyroid disorder Sibling Carcinoma of colon, Onset Age: 56 Depression Anxiety Mother Diabetes mellitus Hypertension Grandparent Alcoholism Social History Social History Social History: Caffeine-none Smoking packs per day: 1 Smoking cigarettes per day: 20.0 Years smoked: 30 Smoking pack-years: 30.00 Smoking status: Former smoker Tobacco type: cigarettes Second hand tobacco smoke exposure: No Smoking end date: 07/04/02 Alcohol intake: current Drinks per week: 8 Alcohol use details: wine Substance use: never Substance use type: does not use Lack of Transportation: No Lack of Food: Never True Current Housing: I Have Housing Concerned About Future Housing: No Difficulty Paying Gas/Electric Bills: No Difficulty Paying for Meds: No Currently Unemployed: No Education: Bachelor's Degree Difficulty w/ Childcare or Family Care: No Living arrangements: alone Occupation/Education: retired Gender identity (if verbalized by the patient): Female Sexual Orientation (if Verbalized by the Patient): Straight or Heterosexual Spiritual care concerns: No Agree to blood products: Yes Exam Narrative: GENERAL APPEARANCE: WELL-DEVELOPED, WELL-NOURISHED SKIN: NORMAL COLOR HEAD: NORMOCEPHALIC, NONTRAUMATIC EYES: CLEAR CONJUNCTIVA ENT: OROPHARYNX NORMAL, EARS NORMAL, NOSE NORMAL NECK: SUPPLE, NONTENDER CHEST AND RESPIRATORY: AIRWAY PATENT, NO RESPIRATORY DISTRESS, NO ACCESSORY MUSCLE USE HEART: REGULAR RATE/RHYTHM ABDOMEN: SOFT, NONTENDER, NO ORGANOMEGALY, QUIET BOWEL SOUNDS VASCULAR: NORMAL PERIPHERAL PULSES, NORMAL CAPILLARY REFILL. MUSCULOSKELETAL: NORMAL RANGE OF MOTION, NONTENDER BACK NEUROLOGIC: ALERT AND ORIENTED ?3, PAINT AND TABLE EDGER IS NORMAL TESTED, NO GROSS MOTOR DEFICIT
[2023-05-25 14:16] LABS: Basophils Percent Auto 0.6 % (0.2-1.2); Eosinophils Absolute Auto 0.1 K/mm3 (0-0.3); Hemoglobin 12.8 g/dL (12.0-15.0); Immature Granulocyte Absolute 0.02 K/mm3 (0.00-0.031); Immature Granulocyte Percent A 0.4 % (0-0.5); Lymphocytes Absolute Auto 1.69 K/mm3 (0.9-3.2); Lymphocytes Percent Auto 35.1 % (18.3-44.2); Mean Corpuscular HGB Conc 32.8 g/dl (32-36); Mean Corpuscular Hemoglobin 32.2 pg (26-34); Mean Platelet Volume 9.5 fl (7.4-10.4); Monocytes Absolute Auto 0.5 K/mm3 (0.1-0.6); Monocytes Percent Auto 9.3 % (2.6-8.5); Neutrophils Absolute Auto 2.6 K/mm3 (1.3-6.7); Neutrophils Percent Auto 53.6 % (45.5-73.1); Platelet Count Result 239 k/mm3 (150-375); Red Blood Count 3.98 M/mm3 (4.2-5.4); Red Cell Distribution Width 12.6 % (11.5-14.5); White Blood Count 4.8 K/mm3 (4.5-10.0)
[2023-05-25 14:18] VITALS: BP 135/91; PULSE 61; RESP 16; O2SAT 100
[2023-05-25 14:26] LABS: Alanine Aminotransferase 23 U/L (6-35); Albumin Level 4.5 g/dL (3.5-5.1); Alkaline Phosphatase 50 U/L (38-126); Anion Gap 6 mmol/L (8-16); Aspartate Amino Transferase 35 U/L (14-36); Bilirubin,Total 0.7 mg/dL (0.2-1.3); Blood Urea Nitrogen 11 mg/dL (7-17); Calcium 9.4 mg/dL (8.4-10.2); Carbon Dioxide 27 mmol/L (22-30); Chloride 97 mmol/L (98-107); Estimated Glomerular Filt Rate > 60; Glucose 124 mg/dL (65-110); Potassium 4.6 mmol/L (3.4-5.0); Sodium 130 mmol/L (137-145)
[2023-05-25 14:33] VITALS: BP 150/92; PULSE 61; RESP 23; O2SAT 100
[2023-05-25 15:28] VITALS: BP 142/82; PULSE 67; RESP 13; O2SAT 100
== END 2023-05-25 15:34 | disposition home or self-care (01) ==
PROVIDERS: Emergency Provider Emergency Medicine; PCP Internal Medicine
DX: R00.2 Palpitations (principal); E78.2 Mixed hyperlipidemia; K21.9 Gastro-esophageal reflux disease without esophagitis; Z87.891 Personal history of nicotine dependence; I44.0 Atrioventricular block, first degree; I45.10 Unspecified right bundle-branch block
CPT/HCPCS: 36415; 71046; 80053; 84443; 85025; 93005; 99284

== ENCOUNTER 2023-06-15 09:34 | Outpatient (CLI) | payer OTHER, SELFPAY ==
--- NOTE | 2023-06-20 13:25 | WPDHOLTEREM ---
Holter/Event Monitor Holter/Event Monitor Date of procedure: 06/15/23 Holter/Event Procedure: 48 Hr Holter Monitor Indications: Palpitations Conclusion: 1. 48 hour holter monitor on 06/15/23. 2. Underlying rhythm is sinus rhythm. HR range 43-107 bpm; average HR 59 bpm. 3. There are 318 premature supraventricular complexes and 20 supraventricular couplets. No supraventricular tachycardia. 4. There are 6 premature ventricular complexes. No ventricular tachycardia. 5. No sinoatrial or atrioventricular blocks. Baseline RBBB. No significant pauses greater than 2 seconds. 6. No symptoms available for correlation.
== END 2023-06-15 09:35 | disposition home or self-care (01) ==
PROVIDERS: PCP Internal Medicine; Visit Provider Nurse Practitioner Family
DX: R00.2 Palpitations (principal)
CPT/HCPCS: 93225; 93226

== ENCOUNTER 2023-07-11 07:00 | Outpatient (NON) | payer OTHER, SELFPAY | END 2023-07-11 07:01 | disposition home or self-care (01) | LOC: ANHLAB 07-13 14:21 | PROVIDERS: PCP Internal Medicine; Visit Provider Nurse Practitioner | DX: D22.5 Melanocytic nevi of trunk (principal) | CPT/HCPCS: 88305 ==

== ENCOUNTER 2023-07-19 07:00 | Outpatient (NON) | payer OTHER, SELFPAY | END 2023-07-19 07:01 | disposition home or self-care (01) | LOC: ANHLAB 07-20 11:22 | PROVIDERS: PCP Internal Medicine; Visit Provider Nurse Practitioner | DX: D22.9 Melanocytic nevi, unspecified (principal); L90.5 Scar conditions and fibrosis of skin | CPT/HCPCS: 88305 ==

== ENCOUNTER 2023-10-08 10:56 | Emergency (ER) | payer OTHER, SELFPAY ==
--- NOTE | ~2023-10-08 | XR_ITS ---
XR toe 1st RT min 2V DATE: 10/08/2023 11:40 INDICATION: Stubbed right great toe last night and dropped a tablet on the toe. TECHNIQUE: 4 views COMPARISON: None FINDINGS: There is a comminuted intra-articular fracture of the base of the distal phalanx with up to approximately 1.2 mm dorsal displacement of the dorsal articular fragment. Mild osteoarthritis at the first metatarsophalangeal joint. IMPRESSION: Comminuted intra-articular fracture of the distal phalanx Reviewed, dictated and finalized at location A.
--- NOTE | 2023-10-08 11:05 | ED.GENADULT ---
HPI - General Adult General Chief complaint: Extremity Injury, Lower Stated complaint: INJURED R TOE Time Seen by Provider: 10/08/23 11:08 Source: patient Mode of arrival: ambulatory Limitations: no limitations History of Present Illness HPI narrative: 68-year-old female patient presents to the [facility] with complaints of a right 1st toe pain. Patient states last night she stubbed her right great toe on a box and then when she went to go and walk and try plug in her tablet she dropped a tablet straight on to her right big toe as well. Patient states she did take some ibuprofen, ice and elevated it all night last night. Related Data Home Medications Medication Instructions Recorded Confirmed levocetirizine 5 mg tablet 10 mg PO DAILY PRN allergies 09/15/22 10/08/23 (Allergy Relief (levocetirizine)) Allergies Allergy/AdvReac Type Severity Reaction Status Date / Time No Known Allergies Allergy Verified 10/08/23 11:25 Review of Systems Review of Systems: CONSTITUTIONAL: Denies fever, chills, or sweats. EYES: Denies visual changes, redness, or discharge. ENT: Denies rhinorrhea, congestion, sore throat, or otalgia. CARDIOVASCULAR: Denies chest pain, palpitations, or edema. RESPIRATORY: Denies cough or dyspnea. GASTROINTESTINAL: Denies abdominal pain, nausea, vomiting, or diarrhea. GENITOURINARY: Denies dysuria or hematuria. SKIN: Denies rash or itching. MUSCULOSKELETAL: Denies back pain, joint pain, or myalgia. Positive right Great toe pain. NEUROLOGIC: Denies headache, numbness, or weakness. PSYCHIATRIC: Denies anxiety or depression. 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 Family History Family History Father Carcinoma of colon Heart disease Thyroid disorder Sibling Carcinoma of colon, Onset Age: 56 Depression Anxiety Mother Diabetes mellitus Hypertension Grandparent Alcoholism Social History Social History Social History: Caffeine-none Smoking packs per day: 1 Smoking cigarettes per day: 20.0 Years smoked: 30 Smoking pack-years: 30.00 Smoking status: Former smoker Tobacco type: cigarettes Second hand tobacco smoke exposure: No Smoking end date: 07/04/02 Alcohol intake: current Drinks per week: 8 Alcohol use details: wine Substance use: never Substance use type: does not use Do You Feel Safe in your Home?: Yes Lack of Transportation: No Lack of Food: Never True Current Housing: I Have Housing Concerned About Future Housing: No Difficulty Paying Gas/Electric Bills: No Difficulty Paying for Meds: No Currently Unemployed: No Education: Bachelor's Degree Difficulty w/ Childcare or Family Care: No Living arrangements: alone Occupation/Education: retired Gender identity (if verbalized by the patient): Female Sexual Orientation (if Verbalized by the Patient): Straight or Heterosexual Spiritual care concerns: No Agree to blood products: Yes Comments At the time of my signature I agree with nursing past medical history, surgical, social, and family history. There is no relevant family history pertinent to the presenting complaint. Exam Narrative: GENERAL: Well-appearing, well-nourished, and in no acute distress. HEAD: Normocephalic, atraumatic. EYES: PERRLA and EOMI. ENT: Nares clear, no rhinorrhea or epistaxis. Mucous membranes moist. NECK: Supple. No lymphadenopathy CHEST: Clear to auscultation. No respiratory distress. HE
[2023-10-08 11:22] VITALS: BP 103/70; PULSE 61; RESP 16; TEMP 36.6; O2SAT 100
== END 2023-10-08 12:21 | disposition home or self-care (01) ==
PROVIDERS: Emergency Provider Nurse Practitioner Family; PCP Internal Medicine
DX: S92.421A Displaced fracture of distal phalanx of right great toe, initial encounter for closed fracture (principal); W22.8XXA Striking against or struck by other objects, initial encounter; K21.9 Gastro-esophageal reflux disease without esophagitis; E78.2 Mixed hyperlipidemia; Z87.891 Personal history of nicotine dependence
CPT/HCPCS: 73660; 99213; G0463

== ENCOUNTER 2023-10-14 10:12 | Outpatient (CLI) | payer OTHER, SELFPAY ==
[2023-10-14 10:33] LABS: Basophils Percent Auto 0.5 % (0.2-1.2); Eosinophils Absolute Auto 0.1 K/mm3 (0-0.3); Eosinophils Percent Auto 2.4 % (0-4.4); Hematocrit 38.1 % (37.0-47.0); Hemoglobin 12.8 g/dL (12.0-15.0); Immature Granulocyte Absolute 0.01 K/mm3 (0.00-0.031); Immature Granulocyte Percent A 0.2 % (0-0.5); Lymphocytes Absolute Auto 2.26 K/mm3 (0.9-3.2); Lymphocytes Percent Auto 55.1 % (18.3-44.2); Mean Corpuscular HGB Conc 33.6 g/dl (32-36); Mean Corpuscular Hemoglobin 32.7 pg (26-34); Mean Corpuscular Volume 97.2 fl (80-100); Mean Platelet Volume 9.2 fl (7.4-10.4); Monocytes Absolute Auto 0.5 K/mm3 (0.1-0.6); Monocytes Percent Auto 11.2 % (2.6-8.5); Neutrophils Absolute Auto 1.3 K/mm3 (1.3-6.7); Neutrophils Percent Auto 30.6 % (45.5-73.1); Platelet Count Result 236 k/mm3 (150-375); Red Blood Count 3.92 M/mm3 (4.2-5.4); White Blood Count 4.1 K/mm3 (4.5-10.0)
[2023-10-14 12:49] LABS: Alanine Aminotransferase 18 U/L (6-35); Albumin Level 4.7 g/dL (3.5-5.1); Alkaline Phosphatase 50 U/L (38-126); Anion Gap 8 mmol/L (4-12); Aspartate Amino Transferase 26 U/L (14-36); Bilirubin,Total 0.7 mg/dL (0.2-1.3); Blood Urea Nitrogen 16 mg/dL (7-17); Calcium 10.4 mg/dL (8.4-10.2); Carbon Dioxide 27 mmol/L (22-30); Chloride 101 mmol/L (98-107); Estimated Glomerular Filt Rate 49; Glucose 109 mg/dL (65-110); Lactate Dehydrogenase 177 U/L (120-246); Potassium 4.3 mmol/L (3.4-5.0); Sodium 136 mmol/L (137-145)
[2023-10-14 13:09] LABS: Cholesterol 188 mg/dL (0-200); HDL Direct 54 mg/dL; Triglycerides 92 mg/dL (<150)
[2023-10-14 13:10] LABS: Vitamin D 25 Hydroxy 78.9 ng/mL
[2023-10-14 13:22] LABS: LDL Cholesterol Direct 101 mg/dL
[2023-10-17 14:13] LABS: Thyroid Peroxidase Antibodies 48 IU/mL (<9)
== END 2023-10-14 10:13 | disposition home or self-care (01) ==
LOC: ANHLAB 10:15
PROVIDERS: Clinical Nurse Specialist; PCP Internal Medicine; Visit Provider Internal Medicine Hematology & Oncology
DX: E78.2 Mixed hyperlipidemia (principal); E55.9 Vitamin D deficiency, unspecified; R79.89 Other specified abnormal findings of blood chemistry; D72.820 Lymphocytosis (symptomatic); R00.2 Palpitations; E87.1 Hypo-osmolality and hyponatremia; E66.3 Overweight
CPT/HCPCS: 36415; 80053; 80061; 82306; 83615; 84443; 85025; 86376

== ENCOUNTER 2023-11-24 11:51 | Outpatient (CLI) | payer OTHER, SELFPAY ==
[2023-11-24 13:51] LABS: Basophils Absolute Auto 0.1 K/mm3 (0.0-0.1); Basophils Percent Auto 0.7 % (0.2-1.2); Eosinophils Absolute Auto 0.2 K/mm3 (0-0.3); Eosinophils Percent Auto 2.4 % (0-4.4); Hematocrit 35.7 % (37.0-47.0); Hemoglobin 11.5 g/dL (12.0-15.0); Immature Granulocyte Absolute 0.02 K/mm3 (0.00-0.031); Immature Granulocyte Percent A 0.3 % (0-0.5); Lymphocytes Absolute Auto 2.38 K/mm3 (0.9-3.2); Lymphocytes Percent Auto 32.2 % (18.3-44.2); Mean Corpuscular HGB Conc 32.2 g/dl (32-36); Mean Corpuscular Hemoglobin 32.1 pg (26-34); Mean Corpuscular Volume 99.7 fl (80-100); Mean Platelet Volume 10.3 fl (7.4-10.4); Monocytes Absolute Auto 0.9 K/mm3 (0.1-0.6); Monocytes Percent Auto 12.1 % (2.6-8.5); Neutrophils Absolute Auto 3.9 K/mm3 (1.3-6.7); Neutrophils Percent Auto 52.3 % (45.5-73.1); Platelet Count Result 234 k/mm3 (150-375); Red Blood Count 3.58 M/mm3 (4.2-5.4); Red Cell Distribution Width 13.3 % (11.5-14.5); White Blood Count 7.4 K/mm3 (4.5-10.0)
[2023-11-24 13:58] LABS: Appearance Urine Turbid (Clear); Bacteria Urine 4+ /hpf; Bilirubin Urine Negative (Negative); Blood Urine 2+ (Negative); Color Urine Dark Yellow (Yellow); Glucose Urine UA Negative (Negative); Ketones Urine Negative (Negative); Leukocyte Esterase Ur 3+ LEU/UL (Negative); Nitrate Urine Positive (Negative); Non Pathogenic Casts 0-2; Protein Urine Trace mg/dL (Negative); Specific Grav Ur 1.007 (1.001-1.035); Squamous Epithelial Cell Urine None Seen /hpf (Few); WBC Urine >100 /hpf (0-3); pH Urine 6.5 (5.0-9.0)
[2023-11-24 14:20] LABS: Add Urine Microscopic? YES
[2023-11-24 17:20] LABS: Alanine Aminotransferase 16 U/L (6-35); Albumin Level 4.1 g/dL (3.5-5.1); Alkaline Phosphatase 62 U/L (38-126); Anion Gap 5 mmol/L (4-12); Aspartate Amino Transferase 47 U/L (14-36); Bilirubin,Total 0.5 mg/dL (0.2-1.3); Blood Urea Nitrogen 12 mg/dL (7-17); Calcium 9.2 mg/dL (8.4-10.2); Carbon Dioxide 26 mmol/L (22-30); Chloride 103 mmol/L (98-107); Estimated Glomerular Filt Rate > 60; Glucose 108 mg/dL (65-110); Potassium 4.3 mmol/L (3.4-5.0); Sodium 134 mmol/L (137-145)
== END 2023-11-24 11:52 | disposition home or self-care (01) ==
PROVIDERS: PCP Clinical Nurse Specialist; Visit Provider Clinical Nurse Specialist
DX: E87.1 Hypo-osmolality and hyponatremia (principal); D72.820 Lymphocytosis (symptomatic); E78.2 Mixed hyperlipidemia; R79.89 Other specified abnormal findings of blood chemistry; D61.818 Other pancytopenia; R39.9 Unspecified symptoms and signs involving the genitourinary system
CPT/HCPCS: 36415; 80053; 81001; 85025; 87077; 87086; 87088; 87186

== ENCOUNTER 2024-01-18 10:26 | Outpatient (CLI) | payer OTHER, SELFPAY ==
[2024-01-18 13:08] LABS: Basophils Percent Auto 0.8 % (0.2-1.2); Eosinophils Absolute Auto 0.1 K/mm3 (0-0.3); Eosinophils Percent Auto 2.1 % (0-4.4); Hematocrit 37.5 % (37.0-47.0); Hemoglobin 12.3 g/dL (12.0-15.0); Lymphocytes Absolute Auto 2.13 K/mm3 (0.9-3.2); Mean Corpuscular HGB Conc 32.8 g/dl (32-36); Mean Corpuscular Hemoglobin 32.2 pg (26-34); Mean Corpuscular Volume 98.2 fl (80-100); Mean Platelet Volume 10.6 fl (7.4-10.4); Monocytes Absolute Auto 0.5 K/mm3 (0.1-0.6); Monocytes Percent Auto 13.2 % (2.6-8.5); Neutrophils Absolute Auto 1.1 K/mm3 (1.3-6.7); Neutrophils Percent Auto 28.9 % (45.5-73.1); Platelet Count Result 239 k/mm3 (150-375); Red Blood Count 3.82 M/mm3 (4.2-5.4); Red Cell Distribution Width 13.7 % (11.5-14.5); White Blood Count 3.9 K/mm3 (4.5-10.0)
[2024-01-27 02:52] LABS: Apolipoprotein B 92 mg/dL
== END 2024-01-18 10:27 | disposition home or self-care (01) ==
LOC: ANHGOSHLAB 10:28
PROVIDERS: PCP Clinical Nurse Specialist; Visit Provider Clinical Nurse Specialist
DX: E78.2 Mixed hyperlipidemia (principal); D46.9 Myelodysplastic syndrome, unspecified; R00.0 Tachycardia, unspecified
CPT/HCPCS: 36415; 82172; 85025

== ENCOUNTER 2024-03-20 12:57 | Outpatient (CLI) | payer OTHER, SELFPAY ==
--- NOTE | ~2024-03-20 | MM_ITS ---
EXAMINATION: MM screening [facility] BI w gissel HISTORY: Screening mammogram TECHNIQUE: Craniocaudal and mediolateral oblique 3-D tomosynthesis images were obtained and synthetic 2-D images were generated. CAD analysis was submitted and interpreted. COMPARISON: 01/13/2023, 11/20/2021, 10/16/2020, 05/30/2019 BREAST PARENCHYMAL COMPOSITION:Not Dense. There are scattered areas of fibroglandular density. FINDINGS: No suspicious mass, calcification, or architectural distortion are identified in either andres ast to suggest malignancy. There has been no suspicious interval change. IMPRESSION: No mammographic evidence of malignancy. Recommend routine screening mammography in one year. BI-RADS Category 1: Negative Reviewed, dictated and finalized at location .
== END 2024-03-20 12:58 | disposition home or self-care (01) ==
LOC: ANHIMG 12:58
PROVIDERS: PCP Internal Medicine; Visit Provider Internal Medicine
DX: Z12.31 Encounter for screening mammogram for malignant neoplasm of breast (principal)
CPT/HCPCS: 77063; 77067

== ENCOUNTER 2024-05-14 12:55 | Outpatient (CLI) | payer OTHER, SELFPAY | END 2024-05-14 12:56 | disposition home or self-care (01) | LOC: ANHAUDASC 12:55 | PROVIDERS: PCP Internal Medicine; Visit Provider Clinical Nurse Specialist | DX: H90.3 Sensorineural hearing loss, bilateral (principal); H93.13 Tinnitus, bilateral | CPT/HCPCS: 92557; 92567 ==

== ENCOUNTER 2024-10-11 09:27 | Outpatient (CLI) | payer OTHER, SELFPAY ==
--- OUTSIDE RECORDS SUMMARY | 2024-10-11 09:46 | XMS_ITS | Continuity of Care Document ---
Author Organization [facility] Address [address] [place] [address] [place] [address] Phone Care Team Providers Care Mainframe Applications Developer Name Role Phone Kimberli Sorensen Unavailable Unavailable Procedures Procedure Date Office/outpatient Visit, Est Corneal Pachymetry Fundus Photography W/ Report Optic Nerve Topography Optic Nerve Topography Office Consultation Advance Directives Directive Yes / No Effective Date File Name No Information Encounters Encounter Description Practice Location Reason(s) For Visit Diagnoses Date Provider Providers Copied on Encounter Office/outpati ent Visit, Est [facility], [address], [place], [place], [id number], tel:[phone] [facility] No Information [address] [facility] [address], [address], [place], [address], [place]. tel:[phone] Referring Provider: Kimberli Williamson, [address], [place], [place], [facility]. tel:[phone] [facility], [address], [place], [place], [id number], [place] tel:[phone] [facility] No Information [address], [address], [place], [address], [place]. tel:[phone] Referring Provider: [facility] [address], [place], [address]. tel:[phone] Office Consultation [facility], [address] [facility] [address], [place], [place], [id number], [place] tel:[phone] [facility] No Information [address] [facility] , [address], [place], [address], [place]. tel:[phone] Referring Provider: Tyler Ball, [address] [facility] [address], [place], [address]. tel:[phone] Family History Family Member Type Diagnosis Age [...]
--- OUTSIDE RECORDS SUMMARY | 2024-10-11 09:46 | XMS_ITS | Clinical Summary ---
Author Organization [facility] Address [address] [facility] [place] [address] Care Team Providers Care Stave Block Roller Name Role Phone Robert Max DO Primary Care Provider Allergies No known active allergies Medications loratadine (CLARITIN) 10 mg tablet Take 10 mg by mouth daily. Active montelukast (SINGULAIR) 10 mg tablet Take 10 mg by mouth daily at bedtime. Active atorvastatin (LIPITOR) 10 mg tabletIndicatio ns:PT TAKING EVERY OTHER DAY ON HOLD Take 10 mg by mouth daily with supper. Active multivitamin (DAILY-HENRY) tablet Take 1 Tablet by mouth daily. Active docusate sodium (COLACE) 100 mg capsule Take 100 mg by mouth late in the day. Active metoprolol succinate (TOPROL XL) 25 mg Extended Release 24 hour tablet Take 25 mg by mouth 2 times daily. Active omeprazole (PriLOSEC) 40 mg Capsule, Delayed Release(E.C.) Take 40 mg by mouth daily. Active celecoxib (CeleBREX) 200 mg capsule TAKE 1 CAPSULE BY MOUTH TWICE DAILY NEEDED FOR PAIN 10/15/2020 Active Active Problems Problem Noted Date Diagnosed Date Lymphocytosis 08/08/2019 Family History Medical History Relation Name Comments Cancer Father Heart Disease Father Lung Cancer Father Diabetes Mother Cancer Sister Colon Cancer Sister Relation Name Status Comments Father Mother Sister Alive Social History Tobacco Use Types Packs/Day Years Used Date Smoking Tobacco: Former Cigarettes 1 30 0 10/16/1969 - 10/17/1999 Smokeless Tobacco: Never Tobacco Cessation:Counseling Given: Not Answered Alcohol Use Standard Drinks/Week Comments Yes 1 (1 standard drink = 0.6 oz pur e alcohol) Comments No Sex and Gender Information Value Date Recorded Sex Assigned at Not on file Legal Sex Female 9:37 PM CDT Gender Identity Not on file Sexual Orientation Not on file Last Filed Vital Signs Vital Sign Reading Time Taken Comments Blood Pressure 115/75 10/19/2023 1:04 PM CDT Pulse 60 10/19/2023 1:04 PM CDT Temperature 36.8 C (98.2 F) 10/19/2023 1:04 PM CDT Respiratory Rate 14 10/19/2023 1:04 PM CDT Oxygen Saturation 97% 10/19/2023 1:04 PM CDT Inhaled Oxygen Concentration - - Weight 72.4 kg (159 lb 9.6 oz) 10/19/2023 1:04 P M CDT Height 160 cm (5' 3 ) 11/23/2021 10:26 AM CDT Body Mass Index 28.27 11/23/2021 10:26 AM CDT Plan of Treatment Upcoming Encounters Date Type Department Care Team (Late st Contact Info) Description 10/18/2024 1:00 PM CDT Office Visit [facility] Oncology and Hematology - [place] [address] [facility] [address] [place] [address] Kris Wilkins MD [address] [facility] [address] [place] [address] Health Maintenance Due Date Last Done Comments Pre-Diabetes and Diabetes Screening 1955 DTAP/TDAP/TD VACCINES (1 - Tdap) 1974 BREAST CANCER SCREENING 1995 COLORECTAL SCREENING 2000 Colorectal Cancer Screening 2000 FIT-DNA Q 3 years 2000 FIT/FOBT Q 1 year 2000 Flex Sig/CT Colonography Q 5 years 2000 PNEUMOCOCCAL VACCINE 50+ YEARS (1 of 1 - PCV) 04/17/20 05 ZOSTER VACCINE (1 of 2) 2005 OSTEOPOROSIS SCREENING 2020 INFLUENZA VACCINE (#1) 2024 03/22/2016 [place] Prev entative Visit/Annual Wellness Visit 07/04/2024 RSV VACCINE (60+ or ) (1 - 1-dose 75+ series) 2030 Insurance Care Teams Stave Block Roller Relationship Specialty Start Date End Date Robert Max DO [address] [address] PCP - General Internal Medicine 11/23/22
--- OUTSIDE RECORDS SUMMARY | 2024-10-11 09:46 | XMS_ITS | CONTINUITY OF CARE DOCUMENT ---
Author Name graciela owens Address Unknown Organization [facility] Address [address] [facility] [address] [place] [address] Phone [phone] Care Team Providers Care Baseball Scout Name Role Phone Norm WEST, Jessica Unavailable [phone] INSURANCE PROVIDERS Payer name Policy type / Coverage type [place] red green party ID [employer] [id number]
--- OUTSIDE RECORDS SUMMARY | 2024-10-11 09:47 | XMS_ITS | Patient Health Record ---
Author Organization [facility] Address [address] [place] [address] Care Team Providers [facility] Administrator Name Role Phone Robert Max Primary Care Provider Unavailab Jason Smith Unavailable [phone] Kristian Doll Unavailable [phone] [employer], Provider Unavailable Unavailab le Allergies No Known Allergies Reason For Referral Reason Z91.09 Referring Provider First Name Robert Referring Provider Last Name Winter Referring Provider Speciality Internal M edicine Referred Organization [facility] Referred Provider Jason Benavides Referred Address [address] [place], [place],[address], Referred Provider Specialty Allergy/Immu nology Referral Priority Routine Medications Medication SIG (Take, Route, Frequency, Duration) Notes Start Date End Date Status PREVACID 30 mg 1 cap(s) orally once a day Active EpiPen 2-Johan 0.3 MG/0.3ML as directed intramuscularly once for 30 days Active ATORVASTATIN 10 mg 1 tab(s) orally once a day Active Azelastine HCl 137 MCG/SPRAY 2 sprays in each nostril Nasally Twice a day for 30 days Active COLACE sodium 100 mg 1 cap(s) orally 2 times a day Active SINGULAIR 10 mg 1 tab(s) orally once a day Active Tatiana Allergy 180 MG 1 tab(s) orally once a day Not-Taking FLONASE 50 mcg/inh 2 spray(s) in each nostril twice a day for 30 days Active SIT (TRADITIONAL) variable per schedule SC per schedule for to be determined Active AUVI -Q 0.3 mg as directed intramuscularly once for 1 dose(s) Active Cetirizine HCl 10 MG 1 tablet Orally Once a day for 30 days Active Azelastine HCl 137 MCG/SPRAY 2 sprays in each nostril Nasally Twice a day for 30 days Active Nasal Washes N/A as directed intranasally Active Triamcinolone Acetonide 0.1 % 1 application Externally Twice a day for 30 days Active Colace 100 MG 1 cap(s) orally 2 times a day Not-Taking Metoprolol Tartrate 25 MG 1 tab(s) orally 2 times a day Active Celecoxib 200 MG Act natan Prevacid 30 MG 1 cap(s) orally once a day Active Atorvastatin Calcium 10 MG 1 tab(s) orally once a day Active Singulair 10 MG 1 tab(s) orally once a day Active Flonase Allergy Relief 50 MCG/ACT 2 spray(s) in each nostril twice a day for 30 day(s) Active NASAL WASHES N/A DIRECTED INTRANASALLY NEEDED for 30 *Please review for potential replacement for e-prescription and drug interaction check* Active Auvi-Q 0.3 MG/0.3ML as directed intramuscularly once for 1 dose(s) Active Triamcinolone Acetonide 0.1 % 1 doris applied topically 3 times a day for 7 days Active METOPROLOL 25 mg 1 tab(s) orally 2 times a day Active Triamcinolone Acetonide 0.1 % 1 doris applied topically 3 times a day for 7 day(s) Active CELECOXIB 200 mg Act natan Triamcinolone Acetonide 0.1 % APPLY OINTMENT TOPICALLY THREE TIMES DAILY FOR 7 DAYS for 7 Active Immunizations Vaccine Route Administration Date Status Comme nts Influenza Unknown 03/04/2021 Administered Portal Infor mation NOC Pneumovax 23 Unknown 05/04/2020 Administered Portal Information Social History Tobacco Use: Social History Observation Description Date Details (start date - stop date) Former Smoker NA - NA Smoking Smart Form: Question Answer Notes Are you a: former smoker How long it has been since you last smoked? > 10 years Tobacco Control (Standard) Question Answer Notes Tobacco use: Former smoker Problems Problem Type SNOMED Code ICD Code Onset Dates Problem Status W/U Status Risk Notes Problem Hyperlipidemia (58602263) Hyperlipidemia, unspecified (E78.5) Active confirmed Problem Chronic allergic conjunctivitis (34804440) Other chronic allergic conjunctivitis (H10.45) Active confirmed Problem Allergic rhinitis caused by pollen (disorder) (78367690) Allergic rhinitis due to pollen (J30.1) Active confirmed Problem Allergic rhinitis caused by animal hair and dander (809336982997899) Allergic rhinitis due to animal (cat) (dog) hair and dander (J30.81) Active confirmed Problem Allergic rhinitis (84576681) Other allergic rhinitis (J30.89) Active confirmed Problem Gastro-esophageal reflux disease without esophagitis (009724852) Gastro-esophageal reflux disease without esophagitis (K21.9) Active confirmed Problem Palpitations (48515269) Palpitations (R00.2) Active confirmed Problem Allergic rhinitis caused by pollen (disorder) (43282663) Allergic rhinitis due to pollen (J30.1) Active confirmed Problem Allergic rhinitis caused by animal hair and dander (406343600134990) Allergic rhinitis due to animal (cat) (dog) hair and dander (J30.81) Active confirmed Problem Allergic rhinitis (10219142) Other allergic rhinitis (J30.89) Active confirmed Problem Chronic allergic conjunctivitis (23954380) Other chronic allergic conjunctivitis (H10.45) Active confirmed Problem Eruption of skin (126466535) Rash and other nonspecific skin eruption (R21) Active confirmed Problem Chronic sinusitis (64833106) Chronic sinusitis, unspecified (J32.9) Active confirmed Vital Signs Oximetry 99 % 09/03/2024 Blood pressure diastolic 88 mm Hg 09/03/2024 Height 63 in 09/03/2024 Blood pressure systolic 134 mm Hg 09/03/2024 Weight 172.6 lbs 09/03/2024 BMI 30.57 kg/m2 09/03/2024 Encounters Encounter Location Date Provider Diagnosis [address] [phone] 12/17/2023 Provider [email or web address] [address] [address] 11/08/2023 Kristian Doll Allergic rhinitis du e to pollen J30.1 ; Other allergic rhinitis J30.89 ; Allergic rhinitis due to animal (cat) (dog) hair and dander J30.81 and Other chronic allergic conjunctivitis H10.45 [facility] [address] [address] 12/05/2023 Kristian Doll Allergic rhinitis du e to pollen J30.1 ; Other allergic rhinitis J30.89 ; Allergic rhinitis due to animal (cat) (dog) hair and dander J30.81 and Other chronic allergic conjunctivitis H10.45 [facility] [address] [place] [address] [address] 01/02/2024 Kristian Doll Allergic rhinitis du e to pollen J30.1 ; Other allergic rhinitis J30.89 ; Allergic rhinitis due to animal (cat) (dog) hair and dander J30.81 and Other chronic allergic conjunctivitis H10.45 [facility] [address] [place] [address] [address] 02/02/2024 Kristian Doll Allergic rhinitis du e to pollen J30.1 ; Other allergic rhinitis J30.89 ; Allergic rhinitis due to animal (cat) (dog) hair and dander J30.81 and Other chronic allergic conjunctivitis H10.45 [facility] [address] [place] [address] [address] 03/12/2024 Jason Benavides Allergic rhinitis du e to pollen J30.1 ; Allergic rhinitis due to animal (cat) (dog) hair and dander J30.81 ; Other allergic rhinitis J30.89 ; Other chronic allergic conjunctivitis H10.45 ; Chronic sinusitis, unspecified J32.9 ; Palpitations R00.2 and Rash and other nonspecific skin eruption R21 [facility] [address] [place] [address] [address] 04/09/2024 Kristian Doll Allergic rhinitis du e to pollen J30.1 ; Other allergic rhinitis J30.89 ; Allergic rhinitis due to animal (cat) (dog) hair and dander J30.81 and Other chronic allergic conjunctivitis H10.45 [facility] [address] [place] [address] [address] 05/07/2024 Kristian Doll Allergic rhinitis du e to pollen J30.1 ; Other allergic rhinitis J30.89 ; Allergic rhinitis due to animal (cat) (dog) hair and dander J30.81 and Other chronic allergic conjunctivitis H10.45 [facility] [address] [place] [address] [address] 06/18/2024 Kristian Doll Allergic rhinitis du e to pollen J30.1 ; Other allergic rhinitis J30.89 ; Allergic rhinitis due to animal (cat) (dog) hair and dander J30.81 and Other chronic allergic conjunctivitis H10.45 [facility] [address] [place] [address] 07/30/2024 Kristian Doll Allergic rhinitis du e to pollen J30.1 ; Other allergic rhinitis J30.89 ; Allergic rhinitis due to animal (cat) (dog) hair and dander J30.81 and Other chronic allergic conjunctivitis H10.45 [facility] [address] [place] [phone] 08/06/2024 Kristian Doll Allergic rhinitis du e to pollen J30.1 ; Other allergic rhinitis J30.89 ; Allergic rhinitis due to animal (cat) (dog) hair and dander J30.81 and Other chronic allergic conjunctivitis H10.45 [facility] [address] [place] [phone] 08/14/2024 Kristian Doll Allergic rhinitis du e to pollen J30.1 ; Other allergic rhinitis J30.89 ; Allergic rhinitis due to animal (cat) (dog) hair and dander J30.81 and Other chronic allergic conjunctivitis H10.45 [facility] [address] [place] [phone] 09/03/2024 Jason Benavides Allergic rhinitis du e to pollen J30.1 ; Allergic rhinitis due to animal (cat) (dog) hair and dander J30.81 ; Other allergic rhinitis J30.89 ; Other chronic allergic conjunctivitis H10.45 ; Chronic sinusitis, unspecified J32.9 ; Palpitations R00.2 and Rash and other nonspecific skin eruption R21 [facility] [address] [place] [phone] 10/01/2024 Kristian Doll Allergic rhinitis du e to pollen J30.1 ; Other allergic rhinitis J30.89 ; Allergic rhinitis due to animal (cat) (dog) hair and dander J30.81 and Other chronic allergic conjunctivitis H10.45 [facility] [address] [address] 12/14/2023 Jason Benavides Assessments Encounter Date Diagnosis (ICD Code) Assessment Notes Treatment Notes Treatment Clinical Notes Section Notes 11/08/2023 Allergic rhinitis due to pollen (ICD-10 - J30.1) 12/05/2023 Allergic rhinitis due to pollen (ICD-10 - J30.1) 01/02/2024 Allergic rhinitis due to pollen (ICD-10 - J30.1) 02/02/2024 Allergic rhinitis due to pollen (ICD-10 - J30.1) 03/12/2024 Allergic rhinitis due to pollen (ICD-10 - J30.1) Hilda clearly suffers from atopic disease based upon our skin testing and clinical history. - continues meds and SCIT, contines on SCIT at [facility]. - procedure tolerated today without issue - noted increased symptoms this past Summer. Increase Flonase to BID and restart nasal washes -Increase SCIT frequency in peak seasons PRN - follow-up as scheduled for SCIT and with provider in 6 months 03/12/2024 Allergic rhinitis due to animal (cat) (dog) hair and dander (ICD-10 - J30.81) Follow allergen avoidance, meds and continue SCIT as an adjunctive treatment to current regimen 04/09/2024 Allergic rhinitis due to pollen (ICD-10 - J30.1) 05/07/2024 Allergic rhinitis due to pollen (ICD-10 - J30.1) 06/18/2024 Allergic rhinitis due to pollen (ICD-10 - J30.1) 07/30/2024 Allergic rhinitis due to pollen (ICD-10 - J30.1) 08/06/2024 Allergic rhinitis due to pollen (ICD-10 - J30.1) 08/14/2024 Allergic rhinitis due to pollen (ICD-10 - J30.1) 09/03/2024 Allergic rhinitis due to pollen (ICD-10 - J30.1) Hilda clearly suffers from atopic disease based upon our skin testing and clinical history. - continues meds and SCIT, contines on SCIT at [facility]. - procedure tolerated today without issue -Increase Flonase to BID and restart nasal washes for upcoming Spring season. -Increase SCIT frequency in peak seasons PRN - follow-up as scheduled for SCIT and with provider in 6 months 09/03/2024 Allergic rhinitis due to animal (cat) (dog) hair and dander (ICD-10 - J30.81) Follow allergen avoidance, meds and continue SCIT as an adjunctive treatment to current regimen 10/01/2024 Allergic rhinitis due to pollen (ICD-10 - J30.1) 09/03/2024 Other allergic rhinitis (ICD-10 - J30.89) Follow allergen avoidance, meds and continue SCIT as an adjunctive treatment to current regimen 08/14/2024 Other allergic rhinitis (ICD-10 - J30.89) 08/06/2024 Other allergic rhinitis (ICD-10 - J30.89) 07/30/2024 Other allergic rhinitis (ICD-10 - J30.89) 06/18/2024 Other allergic rhinitis (ICD-10 - J30.89) 05/07/2024 Other allergic rhinitis (ICD-10 - J30.89) 10/01/2024 Other allergic rhinitis (ICD-10 - J30.89) 04/09/2024 Other allergic rhinitis (ICD-10 - J30.89) 03/12/2024 Other allergic rhinitis (ICD-10 - J30.89) Follow allergen avoidance, meds and continue SCIT as an adjunctive treatment to current regimen 02/02/2024 Other allergic rhinitis (ICD-10 - J30.89) 01/02/2024 Other allergic rhinitis (ICD-10 - J30.89) 12/05/2023 Other allergic rhinitis (ICD-10 - J30.89) 11/08/2023 Other allergic rhinitis (ICD-10 - J30.89) 11/08/2023 Allergic rhinitis due to animal (cat) (dog) hair and dander (ICD-10 - J30.81) 12/05/2023 Allergic rhinitis due to animal (cat) (dog) hair and dander (ICD-10 - J30.81) 01/02/2024 Allergic rhinitis due to animal (cat) (dog) hair and dander (ICD-10 - J30.81) 02/02/2024 Allergic rhinitis due to animal (cat) (dog) hair and dander (ICD-10 - J30.81) 03/12/2024 Other chronic allergic conjunctivitis (ICD-10 - H10.45) Given ocular signs and symptoms I encouraged allergy avoidance measures and meds as above. If symptoms persist, consider adding additional medications including intraocular antihistamine/ma st cell stabilizer, PRN and continue SCIT as an adjunctive measure 04/09/2024 Allergic rhinitis due to animal (cat) (dog) hair and dander (ICD-10 - J30.81) 05/07/2024 Allergic rhinitis due to animal (cat) (dog) hair and dander (ICD-10 - J30.81) 06/18/2024 Allergic rhinitis due to animal (cat) (dog) hair and dander (ICD-10 - J30.81) 07/30/2024 Allergic rhinitis due to animal (cat) (dog) hair and dander (ICD-10 - J30.81) 08/06/2024 Allergic rhinitis due to animal (cat) (dog) hair and dander (ICD-10 - J30.81) 09/03/2024 Other chronic allergic conjunctivitis (ICD-10 - H10.45) Given ocular signs and symptoms I encouraged allergy avoidance measures and meds as above. If symptoms persist, consider adding additional medications including intraocular antihistamine/ma st cell stabilizer, PRN and continue SCIT as an adjunctive measure 08/14/2024 Allergic rhinitis due to animal (cat) (dog) hair and dander (ICD-10 - J30.81) 10/01/2024 Allergic rhinitis due to animal (cat) (dog) hair and dander (ICD-10 - J30.81) 09/03/2024 Chronic sinusitis, unspecified (ICD-10 - J32.9) Recurrent infections, typically 1-2 yearly with some years up to 3-4, last infection Fall 2020. None sicne then - Previosuly discussed PID workup, though does follow with [employer]. If repeat infection occurs would check. - Has hx of low Vit D as well in past, no recent rechecks 10/01/2024 Other chronic allergic conjunctivitis (ICD-10 - H10.45) 08/14/2024 Other chronic allergic conjunctivitis (ICD-10 - H10.45) 08/06/2024 Other chronic allergic conjunctivitis (ICD-10 - H10.45) 07/30/2024 Other chronic allergic conjunctivitis (ICD-10 - H10.45) 06/18/2024 Other chronic allergic conjunctivitis (ICD-10 - H10.45) 05/07/2024 Other chronic allergic conjunctivitis (ICD-10 - H10.45) 03/12/2024 Chronic sinusitis, unspecified (ICD-10 - J32.9) Recurrent infections, typically 1-2 yearly with some years up to 3-4, last infection Fall 2020. None sicne then - Discussed PID workup, she is agreeable but wants to speak with her [employer] firist. If repeat infection occurs would check. - Has hx of low Vit D as well in past, no recent rechecks 04/09/2024 Other chronic allergic conjunctivitis (ICD-10 - H10.45) 02/02/2024 Other chronic allergic conjunctivitis (ICD-10 - H10.45) 01/02/2024 Other chronic allergic conjunctivitis (ICD-10 - H10.45) 12/05/2023 Other chronic allergic conjunctivitis (ICD-10 - H10.45) 11/08/2023 Other chronic allergic conjunctivitis (ICD-10 - H10.45) 03/12/2024 Palpitations (ICD-10 - R00.2) We discussed the difficulty in treating systemic reactions in patients taking beta blockers, if she chooses to purse allergy shots -she is aware to hold and resumed 2 hours after shots 09/03/2024 Palpitations (ICD-10 - R00.2) We discussed the difficulty in treating systemic reactions in patients taking beta blockers, if she chooses to purse allergy shots -she is aware to hold and resumed 2 hours after shots 09/03/2024 Rash and other nonspecific skin eruption (ICD-10 - R21) Noted dry patches to hand, back, and legs for the past year noted to be pruritic without clear trigger. No erythema noted. Noted improved with soak and smear technique along with switch to preservative and dye-free products. I suspect this is more dry skin than eczema. Admits to treating hands with TAC for a month before resolution. Was seen by dermatology after extensive breakthrough in [place]. S/p patch testing + to [facility]. Now avoiding with benefit 03/12/2024 Rash and other nonspecific skin eruption (ICD-10 - R21) Noted dry patches to hand, back, and legs for the past year noted to be pruritic without clear trigger. No erythema noted. Noted improved with soak and smear technique along with switch to preservative and dye-free products. I suspect this is more dry skin than eczema. Admits to treating hands with TAC for a month before resolution. NO rash for the past 2 months. Advised increasing bathing regimen to daily. Advised restraint with use of topical steroids. If issues persist consider patch testing Plan Of Treatment Next Appt Details Provider Name:Kristian Doll , 10/30/2024 11:00:00 AM, [address] [facility], [address], [place], [address], Provider Name:Jason cleveland, 03/25/2025 12:30:00 PM, [address] [facility], [address], [place], [address], Insurance Providers Payer Name Payer Address Payer Phone Subscriber Number Group Number Insured Name Patient Relationship to Insured Coverage Start Date Coverage End Date [employer] [address] [address] [place] [address] [id number] Hilda Mixon Self - patient is the insured 2 Medical (General) History Medical History History ICD Code Gastro-esophageal reflux disease without esophagitis K21.9 Palpitations R00.2 Hyperlipidemia, unspecified E78.5 Allergic rhinitis due to pollen J30.1 Allergic rhinitis due to animal (cat) (d og) hair and dander J30.81 Other allergic rhinitis J30.89 Chronic sinusitis, unspecified J32.9 Surgical History Surgery Date(Month/Year) 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
--- OUTSIDE RECORDS SUMMARY | 2024-10-11 09:47 | XMS_ITS ---
Author Organization [facility] Address [address] [place] [address] Care Team Providers Care [employer] Administrator Name Role Phone Robert Max Primary Care Provider Jason Mckeon Unavailable [phone] Allergies No Known Allergies REASON FOR VISIT ARC follow-up; continues SCIT, now on monthly dosing with continued improvement. Increased Flonase BID in Fall with benefit, Recurrent sinusitis. Last infection Fall 2020, Recurrent itchy dry spots to hands, back, and legs. Was seen by dermatology after extensive breakthrough in [place]. S/p patch testing + to [facility] Medications Medication SIG (Take, Route, Frequency, Duration) Notes Start Date End Date Status Triamcinolone Acetonide 0.1 % 1 doris applied topically 3 times a day for 7 day(s) Active Triamcinolone Acetonide 0.1 % 1 doris applied topically 3 times a day for 7 days Active Auvi-Q 0.3 MG/0.3ML as directed intramuscularly once for 1 dose(s) Active Triamcinolone Acetonide 0.1 % APPLY OINTMENT TOPICALLY THREE TIMES DAILY FOR 7 DAYS for 7 Active EpiPen 2-Johan 0.3 MG/0.3ML as directed intramuscularly once for 30 days Active Flonase Allergy Relief 50 MCG/ACT 2 spray(s) in each nostril twice a day for 30 day(s) Active Singulair 10 MG 1 tab(s) orally once a day Active Atorvastatin Calcium 10 MG 1 tab(s) orally once a day Active Prevacid 30 MG 1 cap(s) orally once a day Active NASAL WASHES N/A DIRECTED INTRANASALLY NEEDED for 30 *Please review for potential replacement for e-prescription and drug interaction check* Active Azelastine HCl 137 MCG/SPRAY 2 sprays in each nostril Nasally Twice a day for 30 days Active Nasal Washes N/A as directed intranasally Active Celecoxib 200 MG Act natan Metoprolol Tartrate 25 MG 1 tab(s) orally 2 times a day Active Triamcinolone Acetonide 0.1 % 1 application Externally Twice a day for 30 days Active AUVI -Q 0.3 mg as directed intramuscularly once for 1 dose(s) Active Cetirizine HCl 10 MG 1 tablet Orally Once a day for 30 days Active SIT (TRADITIONAL) variable per schedule SC per schedule for to be determined Active SINGULAIR 10 mg 1 tab(s) orally once a day Active FLONASE 50 mcg/inh 2 spray(s) in each nostril twice a day for 30 days Active METOPROLOL 25 mg 1 tab(s) orally 2 times a day Active ATORVASTATIN 10 mg 1 tab(s) orally once a day Active COLACE sodium 100 mg 1 cap(s) orally 2 times a day Active CELECOXIB 200 mg Act natan PREVACID 30 mg 1 cap(s) orally once a day Active Colace 100 MG 1 cap(s) orally 2 times a day Not-Taking Azelastine HCl 137 MCG/SPRAY 2 sprays in each nostril Nasally Twice a day for 30 days Active Tatiana Allergy 180 MG 1 tab(s) orally once a day Not-Taking Social History Tobacco Use: Social History Observation Description Date Details (start date - stop date) Former Smoker NA - NA Smoking Smart Form: Question Answer Notes Are you a: former smoker How long it has been since you last smoked? > 10 years Tobacco Control (Standard) Question Answer Notes Tobacco use: Former smoker Vital Signs Blood pressure systolic 134 mm Hg 09/04/19 25 Blood pressure diastolic 88 mm Hg 025 Height 63 in 09/03/2024 Weight 172.6 lbs 09/03/2024 BMI 30.57 kg/m2 09/03/2024 Oximetry 99 % 09/03/2024 Encounters Encounter Location Date Provider Diagnosis [facility] [address] [facility] [address] [place] [id number] 09/03/2024 Jason Benavides Allergic rhinitis du e to pollen J30.1 ; Allergic rhinitis due to animal (cat) (dog) hair and dander J30.81 ; Other allergic rhinitis J30.89 ; Other chronic allergic conjunctivitis H10.45 ; Chronic sinusitis, unspecified J32.9 ; Palpitations R00.2 and Rash and other nonspecific skin eruption R21 Assessments Encounter Date Diagnosis (ICD Code) Assessment Notes Treatment Notes Treatment Clinical Notes Section Notes 09/03/2024 Allergic rhinitis due to pollen (ICD-10 - J30.1) Hilda clearly suffers from atopic disease based upon our skin testing and clinical history. - continues meds and SCIT, contines on SCIT at . - procedure tolerated today without issue -Increase [...] as an adjunctive treatment to current regimen 09/03/2024 Other allergic rhinitis (ICD-10 - J30.89) Follow allergen avoidance, meds and continue SCIT as an adjunctive treatment to current regimen 09/03/2024 Other chronic allergic conjunctivitis (ICD-10 - H10.45) Given ocular signs and symptoms I encouraged allergy avoidance measures and meds as above. If symptoms persist, consider adding additional medications including intraocular antihistamine/ma st cell stabilizer, PRN and continue SCIT as an adjunctive measure 09/03/2024 Chronic sinusitis, unspecified (ICD-10 - J32.9) Recurrent infections, typically 1-2 yearly with some years up to 3-4, last infection Fall 2020. None sicne then - Previosuly discussed PID workup, though does follow with [facility]. If repeat infection occurs would check. - Has hx of low Vit D as well in past, no recent rechecks 09/03/2024 Palpitations (ICD-10 - R00.2) We discussed [...] seen by dermatology after extensive breakthrough in [place]. S/p patch testing + to [facility]. Now avoiding with benefit Plan Of Treatment Medication Medication Name Sig Start Date Stop Date Notes Azelastine HCl 137 MCG/SPRAY 2 sprays in each nostril Nasally Twice a day for 30 days Nasal Washes N/A as directed intranasally Triamcinolone Acetonide 0.1 % 1 application Externally Twice a day for 30 days AUVI -Q 0.3 mg as directed intramus cularly once for 1 dose(s) Cetirizine HCl 10 MG 1 tablet Orally Onc e a day for 30 days SIT (TRADITIONAL) variable per schedule SC per schedule for to be determined SINGULAIR 10 mg 1 tab(s) orally once a day FLONASE 50 mcg/inh 2 spray(s) in each n ostril twice a day for 30 days METOPROLOL 25 mg 1 tab(s) orally 2 times a day ATORVASTATIN 10 mg 1 tab(s) orally once a day COLACE sodium 100 mg 1 cap(s) orally 2 times a day CELECOXIB 200 mg PREVACID 30 mg 1 cap(s) orally once a day Treatment Notes Assessment Notes Allergic rhinitis due to pollen Hilda clearly suffers from atopic disease based upon our skin testing and clinical history. - continues meds and SCIT, contines on SCIT at . - procedure tolerated today without issue -Increase Flonase to BID and restart nasal washes for upcoming Spring season. -Increase SCIT frequency in peak seasons PRN - follow-up as scheduled for SCIT and with provider in 6 months Allergic rhinitis due to ani mal (cat) (dog) hair and dander Follow allergen avoidance, meds and continue SCIT as an adjunctive treatment to current regimen Other allergic rhinitis Follow allergen avoidance, meds and continue SCIT as an adjunctive treatment to current regimen Other chronic allergic conjunctivitis Gi keaton ocular signs and symptoms I encouraged allergy avoidance measures and meds as above. If symptoms persist, consider adding additional medications including intraocular antihistamine/mast cell stabilizer, PRN and continue SCIT as an adjunctive measure Chronic sinusitis, unspecified Recurrent infections, typically 1-2 yearly with some years up to 3-4, last infection Fall 2020. None sicne then - Previosuly discussed PID workup, though does follow with [facility] [employer]. If repeat infection occurs would check. - Has hx of low Vit D as well in past, no recent rechecks Palpitations We discussed the difficulty in treating systemic reactions in patients taking beta blockers, if she chooses to purse allergy shots -she is aware to hold and resumed 2 hours after shots Rash and other nonspecific skin eruption Noted dry patches to hand, back, and [...] seen by dermatology after extensive breakthrough in [place]. S/p patch testing + to [facility]. Now avoiding with benefit Next Appt Details Follow Up: as scheduled, 6 m [facility], Reason: SCIT, Evaluation and Management Provider Name:Kristian HAta Doll , 10/30/2024 11:00:00 AM, [address] [facility] [employer], [address], [address], Provider Name:Jason cleveland, 03/25/2025 12:30:00 PM, [address] [employer], [address], [place], [address], Procedure Notes * Category Sub-Category Detail Notes SCIT Traditional Aeroallergen Schedul e Administration:: Full dosing administered per SOP and [facility]'s titration schedule and/or specific instructions as outlined on the patient's shot record; see attached for specifics re: content, concentration, volume and location of injection(s). Progress Notes * Elías MIXONAbad:1955 (69 yo F)Acc No.[id number]:09/03/2024 Progress Notes Patient: Hilda CRUMP Provider: Lizzy Benavides PA-C :1955 A ge:69 Y S ex:Female Date:09/03/2024 [facility] [facility] Pcp:Robert Max Subjective: * Chief Complaints: * A RC follow-up; continues SCIT, now on monthly dosing with continued improvement. Increased Flonase BID in Fall with benefitRecurrent sinusitis. Last infection fallecurrent itchy dry spots to hands, back, and legs. Was seen by dermatology after extensive breakthrough in [place]. S/p patch testing + to [facility] * HPI: * Introduction: I had the pleasure of seeing Julio Mixon, 69 y/o female with ARC and recurrent sinusitis who returns for interval evaluation and management; and to continue SCIT. She is alone for today's visit. She continues doing well on SCIT with continued benefit. She continues to see significant improvement in symptoms. No recent headaches or need for OTC decongestants. Aeroallergen skin testing was completed at first visit, and was positive to seasonal and perennial allergens, with IDs. All skin pricks were negative initially.She continues on medications, Azelastine, Flonase, Tatiana and Singulair. She has noticed increased sinus and ear congestion this past Summer. Currenly using daily Floanse and Azelastine. She did have increased sinus cognesiton this past Fall. H istorically, Hilda reports symptoms x 40 years. Symptoms of headaches, rhinitis, and PND typically were seasonal, Spring and Fall with Ragweed but recently symptoms have increased to year round. A high-mold count bothers me. Has always had inside/outside dogs, but denies issues. Sleep in basement. No other known triggers. Reports recurrent sinus infections, typically once yearly in the Fall. Reports other years she can get them 2-3x yearly. Typically treated with antibiotics and steroids. Without steroids will not go away. Last infection was Fall 2020 without any in the interval. Diagnosis of bronchitis, October 2021, treated with Amoxicillin and steroids. No prior immune workup. No history of pneumonia. She does have chronic lymphocytosis. Follows with Hematology. She does use PRN TAC ointment for recurrent dry spot to her hands. Was seen by dermatology after extensive breakthrough in [place]. S/p patch testing + to [facility]. Now avoiding with signifcant benefit. F eels switch to preservative and dye-free products has been beneficial. Today, she reports no fevers, chills, night sweats or other constitutional symptoms. The patient is here for scheduled specific allergen immunotherapy. Please see the attached specialty form regarding the specifics of the administration of these vaccines. As per our protocol, they must undergo a screening health questionnaire (medication changes, reaction(s) to last immunotherapy dose(s), current health status, ACT (if appropriate), self-injectable epinephrine on patient(?) and peak flow (if appropriate)). Also, the patient must wait in our office for 30 minutes after receiving immunotherapy. Furthermore, every patient must have an epinephrine pen (self-injectable) with them at the time of administration--and carry if for the following 1.5 hours after they leave our office. The patient must also have taken their antihistamine the day of the injection, preferably 2 hours prior. The consent form for SCIT (subcutaneous immunotherapy) is on file. * ROS: A LLERGY: scratchy throat Y es. i tchy eyes Y es. s inus congestion Y es. P ositive p er the HPI and history, otherwise unremarkable. ? S PECIAL SENSES: Positve for n one. c ataracts N o. g laucoma?No. l oss of hearing Y es. i tching in ears N o. r inging in ears Y es.?loss of balance Y es. l oss of smell N o. d ry eyes Y es. e xcessive tearing Y es. i tching eyes Y es. l oss of taste N o. c onjunctivitis N o.?ear infections N o. C ONSTITUTIONAL: weight gain Y es. l oss of appetite N o. f ever?No. w eakness N o. w eight loss N o. f atigue N o. n ight sweats?No. P ositive for n one. E NT: cold N o. c ough N o. e pistaxis N o. h earing loss Y es. c hange in voice N o. s ore throat Y es. r inging in ears?Yes. s inus pain Y es. P ositive p er the HPI and history, otherwise unremarkable. R ESPIRATORY: shortness of breath N o. c hest pain N o. c hest congestion N o. c ough N o. P ositive p er the HPI and history, otherwise unremakable. O PHTHALMOLOGY: diminished vision Y es. e ye irritation Y es. d rainage from eyes N o. b lurring of vision N o. s easonal eye sx Y es. P ositive for p er the HPI and history, otherwise unremarkable. i tching Y es. s ensitivity to light Y es. d ischarge N o. w atering Y es. s welling of the eyelids?No. r edness Y es. E NDOCRINOLOGY: fatigue N o. p olydipsia N o. p olyuria N o. w eight loss N o. s leep disturbance N o. c old intolerance N o. h eat intolerance N o. d iabetes N o. P ositive for n one. C ARDIOLOGY: chest pain N o. p alpitations Y es. l eg edema?No. d izziness N o. s hortness of breath N o. P ositive for n one. G ASTROENTEROLOGY: dysphagia N o. a bdominal pain N o. n ausea?No. v omiting N o. c onstipation Y es. d iarrhea N o. b lood in stool?No. i ndigestion N o. h emorrhoids N o. P ositive for n one. U ROLOGY: difficulty urinating N o. b lood in urine N o. u rinary incontinence N o. r ecurrent UTI N o. P ositive for n one. ? D ERMATOLOGY: rash N o. m ole Y es. l umps N o. d ry or sensitive skin Y es. h paola (urticaria) N o. a cne N o. s kin cancer Y es. P ositive for p er the HPI and history, otherwise unremakable. N EUROLOGY: headache Y es. t ingling numbness N o. s eizures N o. i nsomnia N o. m sam loss N o. d izziness N o. g ait abnormality N o. P ositive for n one. H EMATOLOGY/LYMPH: Positive for n one. M USCULOSKELETAL: joint swelling N o. j oint pain Y es. l eg cramps N o. j oint stiffness Y es. o steoporosis N o. f racture N o. c arpal tunnel N o. g out N o. P ositive for n one. P SYCHOLOGY: high stress level N o. d epression N o. s leep disturbances N o. s uicidal ideation N o. e ating disorder N o. m ental or physical abuse N o. a nxiety N o. P ositive for n one. F EMALE REPRODUCTIVE: heavy periods N o. h ot flashes N o. a bnormal vaginal discharge N o. s exually active N o. i nfertility N o. f requent yeat infections N o. p elvic pain N o. n ipple discharge N o. A re you ? N o. A re you planning on a future pregancy? N o. A ll other review of systems per the HPI and history, otherwise unremarkable. * Medical History: * Surgical History: u lnar nerve transplant 07/04/1976Carpal tunnel 07/04/2008Meniscus repair * Hospitalization/Major Diagno stic Procedure: N o Hospitalization History. * Family History: F ather: , No, diagnosed with Cancer. M other: , No, diagnosed with Hypertension, Hyperlipidemia, unspecified. P aternal Grand Father: No. P aternal Grand Mother: No. Maternal Grand Father: No. M aternal Grand Mother: No. S iblings: Yes. C hildren: Yes. * Social History: M arital Status What is your marital status? d ivorced A lcohol Screening Do you ever drink alcoholic beverages? Y es Frequency? W eekly S moking Have you ever smoked tobacco: f ormer smoker Additional Findings: Tobacco Non-User N ever chewed tobacco How old were you when you started smoking? 1 8 How old were you when you quit smoking? 4 8 How many cigarettes a day did you smoke? 1 1 to 20 Are you a : f ormer smoker S moking Smart Form Are you a: f ormer smoker How long it has been since you last smoked? > 10 years R ecreational drug use Have you ever used recreational drugs? N o D etails on consumption of certain products? Do you regularly consume products with aspartame; Equal or NutraSweet? N o Have you ever noticed worsening of your rash with these food items? N o E xercise What kind(s) of exercise do you perform regularly? w alking How often do you perform this exercise? d aily A re any of the following personal care products containing fragrance, dye or preservatives used regularly? Shampoo: N o Soap: N o Laundry Detergent: N o Fabric Softener: N o Deodorant: N o Perfume, cologne, after shave: N o Air freshners or other scented products: N o Hair coloring dyes or rinses: N o Other: N o O ccupation Are you currenly employed? N o Have you had any job with high exposure to fumes, chemicals, dust or other noxious substances? N o Are you currently a student? N o E nvironmental History Living environment: p rivate home Where is the home located? c [place] Age of home: 7 0 How long have you lived there? 5 years or more How many people live in the home? 2 H ome description Basement: Y es Any water damage in basement? N o Smokers in the home? Y es Smokers outside the home? N o Air Conditioning? Y es Central Air? Y es Forced air heating? Y es Gas or electric? g as Fireplace? N o Wood burning stove? N o Do you vacuum the home? Y es Air purification systems? Y es Ionizer on air purification system? Y es Pillow and mattress dust-proof encasings? Y es Do you use a humidifier? N o Do you own any pets? Y es What kind(s)? (click all that apply) d og Where do your pets sleep? o ther room in home Fabric softeners used? N o Plants in the home? N o Is there carpeting in your bedroom? Y es Age of carpet? 1 5 Do you have [id number] carpeting? N o What is the age of your mattress (years)? 1 5 What material(s) are used to manufacture your bedding and pillow? n atural fiber (e.g. cotton) What is the age of your pillow (years)? 5 What material are your bedding items made of? n atural fiber (e.g. cotton) Do you sleep with quilts or blankets or a duvet? Y es What material? n atural fiber (e.g. cotton) How many dogs? 1 T obacco Control (Standard) Tobacco use: F ormer smoker * Medications: T akingMETOPROLOL 25 mg tablet 1 tab(s) orally 2 times a day CELECOXIB 200 mg capsule PREVACID 30 mg delayed release capsule 1 cap(s) orally once a day ATORVASTATIN 10 mg tablet 1 tab(s) orally once a day COLACE sodium 100 mg capsule 1 cap(s) orally 2 times a day SINGULAIR 10 mg tablet 1 tab(s) orally once a day FLONASE 50 mcg/inh spray 2 spray(s) in each nostril twice a day SIT (TRADITIONAL) variable see record per schedule SC per schedule AUVI -Q 0.3 mg kit as directed intramuscularly once Metoprolol Tartrate 25 MG Tablet 1 tab(s) orally 2 times a day Celecoxib 200 MG Capsule Prevacid 30 MG Capsule Delayed Release 1 cap(s) orally once a day Atorvastatin Calcium 10 MG Tablet 1 tab(s) orally once a day Singulair 10 MG Tablet 1 tab(s) orally once a day Flonase Allergy Relief 50 MCG/ACT Suspension 2 spray(s) in each nostril twice a day NASAL WASHES N/A 1 QUART OF STERILIZED TAP WATER OR DISTILLED WATER, 1 TSP NACL, 1 PINCH OF BAKING SODA DIRECTED INTRANASALLY NEEDED , Notes to Pharmacist: *Please review for potential replacement for e-prescription and drug interaction check*Auvi-Q 0.3 MG/0.3ML Solution Auto- injector as directed intramuscularly once Triamcinolone Acetonide 0.1 % Ointment 1 doris applied topically 3 times a day Triamcinolone Acetonide 0.1 % Cream 1 doris applied topically 3 times a day Triamcinolone Acetonide 0.1 % Ointment APPLY OINTMENT TOPICALLY THREE TIMES DAILY FOR 7 DAYS EpiPen 2-Johan 0.3 MG/0.3ML Solution Auto-injector as directed intramuscularly once Cetirizine HCl 10 MG Tablet 1 tablet Orally Once a day Nasal Washes N/A 1 quart of sterilized tap water or distilled water, 1 tsp NaCl, 1 pinch of baking soda as directed intranasally Triamcinolone Acetonide 0.1 % Ointment 1 application Externally Twice a day Azelastine HCl 137 MCG/SPRAY Solution 2 sprays in each nostril Nasally Twice a day Taking METOPROLOL 25 mg tablet 1 tab(s) orally 2 times a day Taking CELECOXIB 200 mg capsule Taking PREVACID 30 mg delayed release capsule 1 cap(s) orally once a day Taking ATORVASTATIN 10 mg tablet 1 tab(s) orally once a day Taking COLACE sodium 100 mg capsule 1 cap(s) orally 2 times a day Taking SINGULAIR 10 mg tablet 1 tab(s) orally once a day Taking FLONASE 50 mcg/inh spray 2 spray(s) in each nostril twice a day Taking SIT (TRADITIONAL) variable see record per schedule SC per schedule Taking AUVI -Q 0.3 mg kit as directed intramuscularly once Taking Metoprolol Tartrate 25 MG Tablet 1 tab(s) orally 2 times a day Taking Celecoxib 200 MG Capsule Taking Prevacid 30 MG Capsule Delayed Release 1 cap(s) orally once a day Taking Atorvastatin Calcium 10 MG Tablet 1 tab(s) orally once a day Taking Singulair 10 MG Tablet 1 tab(s) orally once a day Taking Flonase Allergy Relief 50 MCG/ACT Suspension 2 spray(s) in each nostril twice a day Taking NASAL WASHES N/A 1 QUART OF STERILIZED TAP WATER OR DISTILLED WATER, 1 TSP NACL, 1 PINCH OF BAKING SODA DIRECTED INTRANASALLY NEEDED , Notes to Pharmacist: *Please review for potential replacement for e-prescription and drug interaction check*Taking Auvi-Q 0.3 MG/0.3ML Solution Auto-injector as directed intramuscularly once Taking Triamcinolone Acetonide 0.1 % Ointment 1 doris applied topically 3 times a day Taking Triamcinolone Acetonide 0.1 % Cream 1 doris applied topically 3 times a day Taking Triamcinolone Acetonide 0.1 % Ointment APPLY OINTMENT TOPICALLY THREE TIMES DAILY FOR 7 DAYS Taking EpiPen 2-Johan 0.3 MG/0.3ML Solution Auto-injector as directed intramuscularly once Taking Cetirizine HCl 10 MG Tablet 1 tablet Orally Once a day Taking Nasal Washes N/A 1 quart of sterilized tap water or distilled water, 1 tsp NaCl, 1 pinch of baking soda as directed intranasally Taking Triamcinolone Acetonide 0.1 % Ointment 1 application Externally Twice a day Taking Azelastine HCl 137 MCG/SPRAY Solution 2 sprays in each nostril Nasally Twice a day Not- Taking/PRNColace 100 MG Capsule 1 cap(s) orally 2 times a day Tatiana Allergy 180 MG Tablet 1 tab(s) orally once a day Not-Taking/PRN Colace 100 MG Capsule 1 cap(s) orally 2 times a day Not-Taking/PRN Tatiana Allergy 180 MG Tablet 1 tab(s) orally once a day * Allergies: N .K.D.A.no[Allergies Verified] Objective: * Vitals: B P:134/88mm Hg, HR:61/min, Pulse Oximetry:99%, Ht: 63 in, Wt: 172.6 lbs, BMI:30.57Index. * Examination: G eneral examination: General appearance: p leasant, well-developed, well-nourished , female, in no apparent distress, speaking in full sentences. HEENT: p upils equal, round, and reactive to light and accommodation, conjunctiva are injected bilaterally, TMs without evidence of acute infection, turbinates 2+ swollen and pale inferiorly bilaterally, clear rhinorrhea is present, no polyps noted, posterior oropharynx is erythematous and cobblestoning is present, no tongue swelling, and uvula is midline.? Oral cavity: n ormal, no lesions. Neck, thyroid : s upple, non-tender, no anterior cervical lymphadenopathy. Neurologic exam: u nremarkable. Skin: n o dermatographism, urticaria, angioedema . Peripheral pulses: n ormal (2+) bilaterally. Back: n ormal. Extremities: n ormal ROM, no clubbing, no cyanosis, no edema. Assessment: * Assessment: 1. A llergic rhinitis due to pollen - J30.1 (Primary) 2 . A llergic rhinitis due to animal (cat) (dog) hair and dander - J30.81 3 . O ther allergic rhinitis - J30.89 4 . O ther chronic allergic conjunctivitis - H10.45 5 . C hronic sinusitis, unspecified - J32.9 6 . P alpitations - R00.2 ? 7 . R cintia and other nonspecific skin eruption - R21 Plan: * Treatment: 2. A llergic rhinitis due to animal (cat) (dog) hair and dander Notes: Follow allergen avoidance, meds and continue SCIT as an adjunctive treatment to current regimen 3. O ther allergic rhinitis Notes: Follow allergen avoidance, meds and continue SCIT as an adjunctive treatment to current regimen 4. O ther chronic allergic conjunctivitis Notes: Given ocular signs and symptoms I encouraged allergy avoidance measures and meds as above. If symptoms persist, consider adding additional medications including intraocular antihistamine/mast cell stabilizer, PRN and continue SCIT as an adjunctive measure 5. C hronic sinusitis, unspecified Notes: Recurrent infections, typically 1-2 yearly with some years up to 3-4, last infection Fall 2020. None sicne then - Previosuly discussed PID workup, though does follow with Chopper Operator. If repeat infection occurs would check. - Has hx of low Vit D as well in past, no recent rechecks 6. P alpitations Continue METOPROLOL tablet, 25 mg, 1 tab(s), orally, 2 times a day. Notes: We discussed the difficulty in treating systemic reactions in patients taking beta blockers, if she chooses to purse allergy shots -she is aware to hold and resumed 2 hours after shots 7. R cintia and other nonspecific skin eruption Refill Triamcinolone Acetonide Ointment, 0.1 %, 1 application, Externally, Twice a day, 30 days, 60, Refills 0. Notes: Noted dry patches to hand, back, and [...] seen by dermatology after extensive breakthrough in [place]. S/p patch testing + to [facility]. Now avoiding with benefit 8. O thers Continue CELECOXIB capsule, 200 mg; C ontinue PREVACID delayed release capsule, 30 mg, 1 cap(s), orally, once a day; C ontinue ATORVASTATIN tablet, 10 mg, 1 tab(s), orally, once a day; C ontinue COLACE capsule, sodium 100 mg, 1 cap(s), orally, 2 times a day. * Procedures: S CIT: Traditional Aeroallergen Schedule A dministration: F ull dosing administered per SOP and [facility]'s titration schedule and/or specific instructions as outlined on the patient's shot record; see attached for specifics re: content, concentration, volume and location of injection(s). * Procedure Codes: G 8427 DOC MEDS VERIFIED W/PT OR LC49902 IMMUNOTHERAPY INJECTIONS * Preventive Medicine: Counseling: M edication instruction: W atch for side effects of prescribed medications, Nasal steroid/antihistamine instruction: avoid septum. E ducation: G ENERAL EDUCATION: Our staff spent an additional 30 minutes in direct contact with the patient educating them on their current diagnoses and proper treatment and prevention of symptoms and the proper use of medications. E ducation 2: A RC EDUCATION: Our staff discussed the appropriate allergen avoidance measures and medication utilization including upper airway hygiene with daily nasal washes given the patient's clinical status and diagnoses. SCIT EDUCATION: Discussed allergy immunotherapy including the relative risks, benefits and alternatives to this treatment as an adjunctive measure to current therapy, Allergy Immunotherapy: Risks: bleeding, infection, allergic reaction, anaphylaxis = severe allergic reaction that can cause ; Benefits: reduced need for medications, improved symptoms, disease modification. Alternatives: watch/wait, change medication regimen, improve allergy avoidance measures, Our staff discussed the warning signs of anaphylaxis and the indications to use self-injectable epinephrine and seek urgent or emergent care. P atient education material sent to portal? Y es C are goal follow up plan BMI management provided Y es Above Normal BMI Follow-up D ietary management education, guidance, and counseling B P Management: PRE-HYPERTENSIVE FOLLOW-UP PLAN: F ollow-up 1 month REFERRAL TO ALTERNATIVE / PRIMARY CARE PROVIDER: R eferral to general physician * Follow Up: a s scheduled, 6 months (Reason: SCIT, Evaluation and Management) * Billing Information: * Visit Code: 50391 Office Visit, Est Pt., Level 4. Modifiers: 25 * Procedure Codes: G8427 DOC MEDS VERIFIED W/[place]. [address] IMMUNOTHERAPY INJECTIONS. * GRAPHICAL FIELD ASSISTANT Sign off status: Completed true * Provider: Lizzy Benavides PA-C Date: 0 09/03/2024 Generated for Leatha ng/Boy/eTransmitting on: 0 10/11/2024 09:46 AM CDT History and Physical Notes * HPI (History of Present Illness) Category Sub-Category Detail Notes Category Notes *Introduction I had the pleasure of seeing Hilda Mixon, 69 y/o female with ARC and recurrent sinusitis who returns for interval evaluation and management; and to continue SCIT. She is alone for today's visit. She continues doing well on SCIT with continued benefit. She continues to see significant improvement in symptoms. No recent headaches or need for OTC decongestants. Aeroallergen skin testing was completed at first visit, and was positive to seasonal and perennial allergens, with IDs. All skin pricks were negative initially. She continues on medications, Azelastine, Flonase, Tatiana and Singulair. She has noticed increased sinus and ear congestion this past Summer. Currenly using daily Floanse and Azelastine. She did have increased sinus cognesiton this past Fall. Historically, Hilda reports symptoms x 40 years. Symptoms of headaches, rhinitis, and PND typically were seasonal, Spring and Fall with Ragweed but recently symptoms have increased to year round. A high-mold count bothers me. Has always had inside/outside dogs, but denies issues. Sleep in basement. No other known triggers. Reports recurrent sinus infections, typically once yearly in the Fall. Reports other years she can get them 2-3x yearly. Typically treated with antibiotics and steroids. Without steroids will not go away. Last infection was Fall 2020 without any in the interval. Diagnosis of bronchitis, October 2021, treated with Amoxicillin and steroids. No prior immune workup. No history of pneumonia. She does have chronic lymphocytosis. Follows with Hematology. She does use PRN TAC ointment for recurrent dry spot to her hands. Was seen by dermatology after extensive breakthrough in [place]. S/p patch testing + to [facility]. Now avoiding with signifcant benefit. Feels switch to preservative and dye-free products has been beneficial. Today, she reports no fevers, chills, night sweats or other constitutional symptoms The patient is here for scheduled specific allergen immunotherapy. Please see the attached specialty form regarding the specifics of the administration of these vaccines. As per our protocol, they must undergo a screening health questionnaire (medication changes, reaction(s) to last immunotherapy dose(s), current health status, ACT (if appropriate), self-injectable epinephrine on patient(?) and peak flow (if appropriate)). Also, the patient must wait in our office for 30 minutes after receiving immunotherapy. Furthermore, every patient must have an epinephrine pen (self-injectable) with them at the time of administration--and carry if for the following 1.5 hours after they leave our office. The patient must also have taken their antihistamine the day of the injection, preferably 2 hours prior. The consent form for SCIT (subcutaneous immunotherapy) is on file. Examination Category Sub-Category Detail Notes Category Not es General examination HEENT: pupils equal , round, and reactive to light and accommodation, conjunctiva are injected bilaterally, TMs without evidence of acute infection, turbinates 2+ swollen and pale inferiorly bilaterally, clear rhinorrhea is present, no polyps noted, posterior oropharynx is erythematous and cobblestoning is present, no tongue swelling, and uvula is midline Neck, thyroid : supple, non-tender, no anterior cervical lymphadenopathy Extremities: normal ROM, no clubb ing, no cyanosis, no edema General appearance: pleasant, well-devel oped, well-nourished , female, in no apparent distress, speaking in full sentences Skin: no dermatographism, urticaria, angioedema Neurologic exam: unremarkable Oral cavity: normal, no lesions Peripheral pulses: normal (2+) bilatera lly Back: normal
--- OUTSIDE RECORDS SUMMARY | 2024-10-11 09:47 | XMS_ITS | Referral Summary ---
Author Organization [facility] [address] Address [address] [place] [address] Care Team Providers Care Beef Pluck Trimmer Name Role Phone Robert Max DO Primary Care Provider [phone] Encounters Date Type Department Care Team Description 09/24/2024 10:45 AM CDT Ancillary Procedure [facility] [address] [place] [address] Advanced Medicine 8th [place] [address] [place] [address] SVT (supraventricular tachycardia) 09/24/2024 Telephone [facility] [facility] 8th [place] [address] [place] [id number] Ralph Mora MD 08/02/2024 1:45 PM CAR LOT ATTENDANT Office Visit [facility] [address] [facility] [address] [place] [address] Radha Nicholson NP PSVT (paroxysmal supraventricular tachycardia) (Primary Dx); SVT (supraventricular tachycardia); PVC (premature ventricular contraction) from Last 3 Months Allergies No known active allergies Medications montelukast (SINGULAIR) 10 mg tabletIndication s:Seasonal Allergic Rhinitis Take 1 tablet (10 mg total) by mouth nightly Active cholecalciferol (VITAMIN D-3) 5,000 unit tabletIndication s:Osteoporosis,V itamin D Deficiency Take 1 tablet (5,000 Units total) by mouth every morning Active fexofenadine (Tatiana Allergy) 180 mg tabletIndication s:Seasonal Allergic Rhinitis Take 1 tablet (180 mg total) by mouth every morning Active celecoxib (CeleBREX) 200 mg capsuleIndicatio ns:Osteoarthriti s Take 1 capsule (200 mg total) by mouth 2 (two) times a day Active atorvastatin (LIPITOR) 10 mg tabletIndication s:hyperlipidemia Take 1 tablet (10 mg total) by mouth every other day Active azelastine (ASTELIN) 137 mcg (0.1 %) nasal sprayIndications :Seasonal Allergic Rhinitis Administer 1 spray into each nostril 2 (two) times a day Active fluticasone propionate (Flonase Allergy Relief) 50 mcg/actuation nasal sprayIndications :Allergic Rhinitis Administer 1 spray into each nostril 2 (two) times a day Active omeprazole (PriLOSEC) 40 mg capsuleIndicatio ns:Stress Ulcer Prophylaxis Take 1 capsule (40 mg total) by mouth every morning 4 Active triamcinolone (KENALOG) 0.1 % ointmentIndicati ons:Skin Inflammation,ski n rash Apply 1 Application topically 2 (two) times a day as needed for irritation or rash 4 Active psyllium 0.52 gram capsuleIndicatio ns:constipation Take 1 capsule (0.52 g total) by mouth 2 (two) times a day Active polyethylene glycol (MIRALAX) 17 gram packetIndication s:constipation Take 1 packet (17 g total) by mouth daily after lunch Active multivit-mineral s/folic acid (CENTRUM ADULT 50 PLUS ORAL)Indications :Supplement Take 1 tablet by mouth every morning Active inulin (FIBER GUMMIES ORAL)Indications :Gut health Take 2 tablet/chew tab by mouth every morning Active Lactobacillus acidophilus (PROBIOTIC ORAL)Indications :Gut health Take 1 tablet by mouth nightly Active acetaminophen (TYLENOL) 500 mg tabletIndication s:Pain Take 2 tablets (1,000 mg total) by mouth every 6 (six) hours as needed for pain Active ibuprofen 200 mg tab/capIndicatio ns:Pain Take 2 tablet/capsule (400 mg total) by mouth every 6 (six) hours as needed for pain Active simethicone (GAS-X ORAL)Indications :gas Take 2 tablets by mouth 2 (two) times a day as needed (gas) Active metoprolol tartrate (LOPRESSOR) 25 mg immediate release tabletIndication s:Atrial Arrhythmia Take 1.5 tablets (37.5 mg total) by mouth 2 (two) times a day 90 tablet 2 4 Active cetirizine (ZyrTEC) 10 mg tablet Take 1 tablet (10 mg total) by mouth daily 4 Active Active Problems Problem Noted Date Diagnosed Date PVC (premature ventricular contraction) 05/08/20 Assessment & Plan (08/02/2024 1:51 PM CAR LOT ATTENDANT): -Continue metoprolol for PVCs Assessment & Plan (05/08/2024 4:06 PM CAR LOT ATTENDANT): - Continue metoprolol for PVCs - If palpitations increase, can consider 3 day Holter SVT (supraventricular tachycardia) 03/28/2024 Assessment & Plan (08/03/2024 8:50 AM CAR LOT ATTENDANT): Atrial tachycardia - 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 - Limited ablation was applied at earliest site but had to be limited due to proximity to Phrenic nerve. - Following ablation, AT was still inducible but mapped more anteriorly. - To avoid risk of SVC stenosis and phrenic nerve injury, no further RFA was applied. - A single application of pulsed field ablation was applied to earliest site resulted in durable elimination of all AT's. - Additional applications were not given due to proximity to sinus node to decrease risk of SND/need for PPM. 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 - Limited ablation was applied at earliest site but had to be limited due to proximity to Phrenic nerve. - Following ablation, AT was still inducible but mapped more anteriorly. - To avoid risk of SVC stenosis and phrenic nerve injury, no further RFA was applied. - A single application of pulsed field ablation was applied to earliest site resulted in durable elimination of all AT's. - Additional applications were not given due to proximity to sinus node to decrease risk of SND/need for PPM. - If AT recurs, could consider AAD versus repeat ablation (PFA to isolate entire SVC sleeve if necessary) but would need to be prepared for increased risk of needing a PPM - She is doing well post ablation without recurrence of SVT - Continue metoprolol - Stop aspirin PSVT (paroxysmal supraventricular tachycardia) 0 08/23/2023 Palpitations 08/23/2023 Mixed hyperlipidemia 08/23/2023 RBBB 08/23/2023 Lightheadedness 08/23/2023 First degree AV block 08/23/2023 Social History Tobacco Use Types Packs/Day Years Used Date Smoking Tobacco: Former Cigarettes 1 30 1 973 - 07/04/2002 Smokeless Tobacco: Never Tobacco Cessation:Counseling Given: Not Answered AUDIT-C Answer Date Recorded Q1: How often do you have a drink containing alc ohol? 2-3 times a week 03/26/2024 Q2: How many drinks containi ng alcohol do you have on a typical day when you are drinking? 1 or 2 03/26/2024 Q3: How often do you have si x or more drinks on one occasion? Never 03/26/2024 Personal Safety Answer Date Recorded Have you ever been in or are you currently in a harmful physical or emotional relationship or is someone making you feel afraid or unsafe? Denies 03/28/2024 Comments Unknown Sex and Gender Information Value Date Recorded Sex Assigned at Not on file Legal Sex Female 2:59 PM CDT Gender Identity Not on file Sexual Orientation Not on file Last Filed Vital Signs Vital Sign Reading Time Taken Comments Blood Pressure 123/89 08/02/2024 1:47 PM CAR LOT ATTENDANT Pulse 59 08/02/2024 1:47 PM CAR LOT ATTENDANT Temperature - - Respiratory Rate 26 03/28/2024 4:55 PM CDT Oxygen Saturation 99% 08/02/2024 1:47 PM CAR LOT ATTENDANT Inhaled Oxygen Concentration - - Weight 76.6 kg (168 lb 12.8 oz) 08/02/2024 1:47 PM CAR LOT ATTENDANT Height 160 cm (5' 3 ) 08/02/2024 1:47 PM CAR LOT ATTENDANT Body Mass Index 29.9 08/02/2024 1:47 PM CAR LOT ATTENDANT Plan of Treatment Not on file Medical Devices Implanted Type Area Fire And Safety Helper Device Identifier Shelf Expiration Date Model / Serial / Lot [employer] Device Closure Vascade Od5 Fr Femoral Artery [id number] - [id number] Implanted:Qty: 1 on 03/28/2024 by Ralph Mora MD at [facility] Vascular Closure Device [employer] 09/21/2025 700-500DX- [id number] / / [id number] [employer] Device Closure Vascade Od5 Fr Femoral Artery [id number] - [id number] Implanted:Qty: 1 on 03/28/2024 by Ralph Mora MD at [facility] Vascular Closure Device [employer] 11/28/2025 700-500DX- [id number] / / [id number] [employer] Vascade Mvp 6-12fr Venous Closure [id number] - [id number] Implanted:Qty: 1 on 03/28/2024 by Ralph Mora MD at [facility] Vascular Closure Device [employer] 10/30/2025 [id number]-[id number] [id number] / / [id number] [employer] Vascade Mvp 6-12fr Venous Closure [id number] - [id number] Implanted:Qty: 1 on 03/28/2024 by Ralph Mora MD at [facility] Vascular Closure Device [employer] 10/30/2025 [id number]-[id number] [id number] / / [id number] Procedures Procedure Name Priority Date/Time Associated Diagnosis Comments ECG 12-LEAD Routine 08/02/2024 1:48 PM CAR LOT ATTENDANT PSVT (paroxysmal supraventricular tachycardia) from Last 3 Months Results * ECG 12 lead (08/02/2024 1:48 PM CAR LOT ATTENDANT) us Radha Nicholson [facility] RADIO OPERATOR ECG ORDERABLES Edited Re sult - Final from Last 3 Months Insurance Care Teams Beef Pluck Trimmer Relationship Specialty Start Date End Date Robert Max DO PCP - General Internal Medicine 03/14/24
--- OUTSIDE RECORDS SUMMARY | 2024-10-11 09:47 | XMS_ITS ---
Author Organization [facility] Address [address] [place] [address] Care Team Providers Care Radiation Officer Name Role Phone Robert Max Primary Care Provider Jason Mckeon Unavailable [phone] Kristian Doll Unavailable [phone] REASON FOR VISIT SCIT (Aeroallergen) Encounters Encounter Location Date Provider Diagnosis [facility] [address] [facility] [address] [place] [phone] 08/20/2024 Kristian Doll Plan Of Treatment Next Appt Details Provider Name:Kristian Doll , 10/30/2024 11:00:00 AM, [address] [employer], [address] [place] [address], [phone], Provider Name:Jason cleveland, 03/25/2025 12:30:00 PM, [address] [employer], [address] [place] [address], [phone], Progress Notes * Elías MIXONaDOB:1955 (69 yo F)Acc No.[id number]:08/20/2024 SCIT-Aeroallergen Patient: Hilda CRUMP Provider: Jeanie Doll MD :1955 A ge:69 Y S ex:Female Date:08/20/2024 [address] [facility] Pcp:Robert Max Subjective: * Chief Complaints: * 1 . SCIT (Aeroallergen). * Medical History: Objective: * Vitals: Assessment: Plan: * Treatment: * Billing Information: * Visit Code: * Procedure Codes: * Electronic signature [facility] Doll [facility] on 10/11/2024 at 09:46 AM CDT Sign off status: Pending * Provider: Jeanie Doll MD Date: 0 08/20/2024 Generated for Leatha velasquez/Boy/Altagracia on: 0 10/11/2024 09:46 AM CDT
--- OUTSIDE RECORDS SUMMARY | 2024-10-11 09:47 | XMS_ITS | Clinical Summary ---
Author Organization [facility] [address] Address [address] [place] [address] Care Team Providers Care Slag Mixer Name Role Phone Robert Max DO Primary Care Provider [phone] Allergies No known active allergies Medications montelukast [...] Diagnosed Date PVC (premature ventricular contraction) 05/08/20 24 Assessment & Plan (08/02/2024 1:51 PM GERMAN PROFESSOR): -Continue metoprolol for PVCs Assessment & Plan (05/08/2024 4:06 PM GERMAN PROFESSOR): - Continue metoprolol for PVCs - If palpitations increase, can consider 3 day Holter SVT (supraventricular tachycardia) 03/28/2024 Assessment & Plan (08/03/2024 8:50 AM GERMAN PROFESSOR): Atrial tachycardia - Multiple atrial tachycardias originating [...] BID Assessment & Plan (05/08/2024 4:06 PM GERMAN PROFESSOR): Atrial tachycardia - Multiple atrial tachycardias originating [...] Lightheadedness 08/23/2023 First degree AV block 08/23/2023 Encounters Date Type Department Care Team Description 09/24/2024 10:45 AM CDT Ancillary Procedure [facility] Cardiology [address] 8th Floor [address] [place] [id number] SVT (supraventricular tachycardia) 09/24/2024 Telephone [facility] Cardiology [facility] Advanced Medicine 8th [place] [address] [place] [address] Ralph Mora MD 08/02/2024 1:45 PM GERMAN PROFESSOR Office Visit [facility] Cardiology [address] [facility] Medical [address] [place] [address] Radha Nicholson, SILVESTRE PSVT (paroxysmal supraventricular tachycardia) (Primary Dx); SVT (supraventricular tachycardia); PVC (premature ventricular contraction) from Last 3 Months Surgical History Surgery Date Site/Laterality Comments CARPAL TUNNEL RELEASE OTHER SURGICAL HISTORY 07/04/2015 - 07/03/2016 LATERAL MENISCAL REPAIR OTHER SURGICAL HISTORY 07/04/1976 - 07/03/1977 TRANSPLANT- ULNAR NERVE TONSILLECTOMY Medical History Medical History Date Comments Palpitations GERD (gastroesophageal reflux disease) Hyperlipidemia Pancytopenia (HCC) Skin cancer Arthritis 2018 PONV (postoperative nausea and vomiting) Family History Medical History Relation Name Comments Allergy (severe) Father Vanessa Arthritis Father Vanessa Colon cancer Father Vanessa Hearing loss Father Vanessa Heart attack Father Vanessa Heart disease Father Vanessa Lung cancer Father Vanessa Thyroid disease Father Vanessa Alzheimer's disease Mother Vanessa Diabetes Mother Vanessa Hyperlipidemia Mother Vanessa Hypertension Mother Vanessa Cancer Sister Fariba Anesthesia problems Neg Hx Relation Name Status Comments Father Vanessa Mother Vanessa Sister Fariba Social History Tobacco Use Types Packs/Day Years Used Date Smoking Tobacco: Former Cigarettes 30 1 973 - 07/04/2002 Smokeless Tobacco: [...] on file Sexual Orientation Not on file Obstetrics History Last Filed Vital Signs Vital Sign Reading Time Taken Comments Blood Pressure 123/89 08/02/2024 1:47 PM GERMAN PROFESSOR Pulse 59 08/02/2024 1:47 PM GERMAN PROFESSOR Temperature - - Respiratory Rate 26 03/28/2024 4:55 PM CDT Oxygen Saturation 99% 08/02/2024 1:47 PM GERMAN PROFESSOR Inhaled Oxygen Concentration - - Weight 76.6 kg (168 lb 12.8 oz) 08/02/2024 1:47 PM GERMAN PROFESSOR Height 160 cm (5' 3 ) 08/02/2024 1:47 PM GERMAN PROFESSOR Body Mass Index 29.9 08/02/2024 1:47 PM GERMAN PROFESSOR Plan of Treatment Health Maintenance Due Date Last Done Comments Breast Cancer Screening-Mammogram 1955 Colon Cancer Screening-Colonoscopy 1955 Depression Screening 1955 Hepatitis C Screening 1955 Osteoporosis Screening-Bone Density Scan 1955 DTaP/Tdap/Td Vaccine (1 - Tdap) 1966 Hepatitis B Screening 1973 Well Visit 65+ 2020 Pneumococcal vaccine 65+ (2 of 2 - PCV) 04/18/2021 04/18/2020 Covid-19 Vaccine (2023-2 5 season) 2024 03/22/2023, 04/03/2022, 10/29/2021, Additional history exists Influenza Vaccine (Season Ended) 2025 03/22/2023, 04/20/2022, 03/27/2021, Additional history exists Fall Risk Assessment 03/28/2025 03/28/2024 Zoster Vaccine Completed 02/19/2021, 12/04/2020 Medical Devices Implanted Type Area Razor Grinder Device Identifier Shelf Expiration Date Model / Serial / Lot [employer] Device Closure Vascade Od5 Fr Femoral Artery [id number] - [id number] Implanted:Qty: 1 on 03/28/2024 by Ralph Mora MD at [facility] Vascular Closure Device [employer] 09/21/2025 700-500DX- [id number] / / [id number] [employer] Device Closure Vascade Od5 Fr Femoral Artery [id number] - [id number] Implanted:Qty: 1 on 03/28/2024 by Ralph Mora MD at [facility] Vascular Closure Device [employer] 11/28/2025 [id number]- [id number] / / [id number] [employer] Vascade Mvp 6-12fr Venous Closure [id number] - [id number] Implanted:Qty: 1 on 03/28/2024 by Ralph Mora MD at [facility] Vascular Closure Device [employer] 10/30/2025 [id number] [id number] / / [id number] [employer] Vascade Mvp 6-12fr Venous Closure [id number] - [id number] Implanted:Qty: 1 on 03/28/2024 by Ralph Mora MD at [facility] Vascular Closure Device [employer] 10/30/2025 [id number]-[id number] [id number] / / [id number] Procedures Procedure Name Priority Date/Time Associated Diagnosis Comments ECG 12-LEAD Routine 08/02/2024 1:48 PM GERMAN PROFESSOR PSVT (paroxysmal supraventricular tachycardia) from Last 3 Months Results * ECG 12 lead (08/02/2024 1:48 PM GERMAN PROFESSOR) us Radha Nichloson CONDUIT INSTALLER ECG ORDERABLES Edited Re sult - Final from Last 3 Months Insurance [facility] Care Teams Slag Mixer Relationship Specialty Start Date End Date Robert Max DO PCP - General Internal Medicine 03/14/24
--- OUTSIDE RECORDS SUMMARY | 2024-10-11 09:47 | XMS_ITS | Clinical Summary ---
Author Organization [facility] Address [address] [place] [address] Care Team Providers Care Hydrogen Operator Name Role Phone Anca Parnell MD Primary Care Provider + Source Comments [facility],non-owned Affiliates and Associated Physician Practices is amultiple site organization consisting of ambulatory clinics and hospital sitesin [place], [place], [place] and [place]. This disclosure is being madepursuant to the Care Everywhere program and may not contain all information available regarding this patient. Last updated 18.[facility] Immunizations Name Administration Dates Next Due FLU VACCINE QUAD IIV4 PF ID 03/22/2016 Social History Tobacco Use Types Packs/Day Years Used Date Smoking Tobacco: Never Assessed Sex and Gender Information Value Date Recorded Sex Assigned at Not on file Gender Identity Not on file Sexual Orientation Not on file Plan of Treatment Health Maintenance Due Date Last Done Comments BONE DENSITY TESTING 1955 COLOGUARD (AGES 45-75) - COL ON CA SCREENING 1955 COLON MONITORING 1955 COLONOSCOPY - COLON CA SCREENING 1955 CT COLONOGRAPHY - COLON CA SCREENING 1955 Colorectal Cancer Screening 1955 FIT - COLON CA SCREENING 1955 FLEX SIG - COLON CA SCREENING 1955 LIPID TESTING 1955 MAMMOGRAM 1955 MEDICARE AWV 12 MONTHS 1955 HEPATITIS C SCREENING 04/12/1973 DTAP/TDAP/TD VACCINES (1 - Tdap) 1974 PNEUMOCOCCAL VACCINE 50+ (1 of 1 - PCV) 2005 ZOSTER VACCINE (1 of 2) 2005 COVID-19 VACCINE (1 - 2023-2 5 season) 2024 DEPRESSION SCREENING 07/04/2024 MEDICARE AWV CALENDAR YEAR 2024 INFLUENZA VACCINE (Season Ended) 2025 03/22/20 16 Respiratory Syncytial Virus (RSV) Vaccine Pt: or over 60 yrs (1 - 1-dose 75+ series) 2030 HEPATITIS B VACCINE Aged Out No longe r eligible based on patient's age to complete this topic HIB VACCINE Aged Out No longer eligi ble based on patient's age to complete this topic HPV VACCINE Aged Out No longer eligi ble based on patient's age to complete this topic MENINGOCOCCAL (Group B) VACC INE SHARED DECISION-MAKING Aged Out No longer eligibl e based on patient's age to complete this topic MENINGOCOCCAL GROUPS A/C/Y/W VACCINE Aged Out No longer eligible b ased on patient's age to complete this topic Care Teams Hydrogen Operator Relationship Specialty Start Date End Date Anca Parnell MD [address] [place] [address] PCP - General 07/25/18
--- OUTSIDE RECORDS SUMMARY | 2024-10-11 09:47 | XMS_ITS ---
Author Organization [facility] Address [address] [place] [address] Care Team Providers Care Client Portfolio Manager Name Role Phone Robert Max Primary Care Provider Unavailab Jason Smith Unavailable [phone] LavonKristian Unavailable [phone] REASON FOR VISIT SCIT - Traditional Schedule Allergy Immunotherapy Medications Medication SIG (Take, Route, Frequency, Duration) Notes Start Date End Date Status Tatiana Allergy 180 MG 1 tab(s) orally once a day Not-Taking Triamcinolone Acetonide 0.1 % APPLY OINTMENT TOPICALLY THREE TIMES DAILY FOR 7 DAYS for 7 Active EpiPen 2-Johan 0.3 MG/0.3ML as directed intramuscularly once for 30 days Active Azelastine HCl 137 MCG/SPRAY 2 sprays in each nostril Nasally Twice a day for 30 days Active Colace 100 MG 1 cap(s) orally 2 times a day Not-Taking Flonase Allergy Relief 50 MCG/ACT 2 spray(s) [...] times a day for 7 days Active Triamcinolone Acetonide 0.1 % 1 doris applied topically 3 times a day for 7 day(s) Active Atorvastatin Calcium 10 MG 1 tab(s) orally once a day Active Singulair 10 MG 1 tab(s) orally once a day Active Metoprolol Tartrate 25 MG 1 tab(s) orally 2 times a day Active Celecoxib 200 MG Act natan Prevacid 30 MG 1 cap(s) orally once a day Active AUVI -Q 0.3 mg as directed [...] Twice a day for 30 days Active FLONASE 50 mcg/inh 2 spray(s) in each nostril twice a day for 30 days Active SIT (TRADITIONAL) variable per schedule SC per schedule for to be determined Active ATORVASTATIN 10 mg 1 tab(s) orally once a day Active COLACE sodium 100 mg 1 cap(s) orally 2 times a day Active SINGULAIR 10 mg 1 tab(s) orally once a day Active METOPROLOL 25 mg 1 tab(s) orally 2 times a day Active CELECOXIB 200 mg Act natan PREVACID 30 mg 1 cap(s) orally once a day Active Encounters Encounter Location Date Provider Diagnosis [facility] [address] [place] [address] 10/01/2024 Kristian Doll Allergic rhinitis du e to pollen J30.1 ; Other allergic rhinitis J30.89 ; Allergic rhinitis due to animal (cat) (dog) hair and dander J30.81 and Other chronic allergic conjunctivitis H10.45 Assessments Encounter Date Diagnosis (ICD Code) Assessment Notes Treatment Notes Treatment Clinical Notes Section Notes 10/01/2024 Allergic rhinitis due to pollen (ICD-10 - J30.1) 10/01/2024 Other allergic rhinitis (ICD-10 - J30.89) 10/01/2024 Allergic rhinitis due to animal (cat) (dog) hair and dander (ICD-10 - J30.81) 10/01/2024 Other chronic allergic conjunctivitis (ICD-10 - H10.45) Plan Of Treatment Next Appt Details Follow Up: 1 Week, Reason: Provider Name:Kristian Doll , 10/30/2024 11:00:00 AM, [address] [facility], [address], [address], Provider Name:Jason Cunningham megha, 03/25/2025 12:30:00 PM, [address] [facility], [facility] [address], [place], [address], Progress Notes * Elías MIXONaDOB:1955 (69 yo F)Acc No.[id number]:10/01/2024 SCIT-Aeroallergen Patient: Hilda CRUMP Provider: Jeanie Doll MD :1955 A ge:69 Y S ex:Female Date:10/01/2024 Address:[address] [place], [place] [address] Pcp:Robert Max Subjective: * Chief Complaints: * S CIT - Traditional Schedule Allergy Immunotherapy * HPI: * Introduction: The patient is here for scheduled immunotherapy. Please see the attached specialty form regarding the specifics of the administration of these vaccines. As per our protocol, they must undergo a screening health questionnaire (medication changes, reaction(s) to last immunotherapy dose(s), current health status, ACT (if appropriate), self-injectable epinephrine on patient(?) and peak flow (if appropriate)). Also, the patient must wait in our office for 30 minutes after receiving the vaccine(s). Furthermore, every patient must have an epinephrine pen (self-injectable) with them at the time of administration--and carry if for the following 1.5 hours after they leave our office. The patient must also have taken their antihistamine the day of the injection, preferably 2 hours prior. The consent form for SCIT (subcutaneous immunotherapy) is on file. * Medical History: * Surgical History: * Hospitalization/Major Diagno stic Procedure: * Medications: T akingMETOPROLOL 25 mg tablet [...] 0.3 mg kit as directed intramuscularly once Cetirizine HCl 10 MG Tablet 1 tablet Orally Once a day Azelastine HCl 137 MCG/SPRAY Solution 2 sprays in each nostril Nasally Twice a day Nasal Washes N/A 1 quart of sterilized tap water or distilled water, 1 tsp NaCl, 1 pinch of baking soda as directed intranasally Triamcinolone Acetonide 0.1 % Ointment 1 application Externally Twice a day Metoprolol Tartrate 25 MG Tablet 1 tab(s) [...] MG/0.3ML Solution Auto-injector as directed intramuscularly once Azelastine HCl 137 MCG/SPRAY Solution 2 sprays [...] mg kit as directed intramuscularly once Taking Cetirizine HCl 10 MG Tablet 1 tablet Orally Once a day Taking Azelastine HCl 137 MCG/SPRAY Solution 2 sprays in each nostril Nasally Twice a day Taking Nasal Washes N/A 1 quart of sterilized tap water or distilled water, 1 tsp NaCl, 1 pinch of baking soda as directed intranasally Taking Triamcinolone Acetonide 0.1 % Ointment 1 application Externally Twice a day Taking Metoprolol Tartrate 25 MG Tablet 1 [...] Solution Auto-injector as directed intramuscularly once Taking Azelastine HCl 137 MCG/SPRAY Solution 2 sprays in each nostril Nasally Twice a day Not-Taking/PRNColace 100 MG Capsule 1 cap(s) orally 2 times a day Tatiana Allergy 180 MG Tablet 1 tab(s) orally once a day Not-Taking/PRN Colace 100 MG Capsule 1 cap(s) orally 2 times a day Not-Taking/PRN Tatiana Allergy 180 MG Tablet 1 tab(s) orally once a day Objective: * Vitals: Assessment: * Assessment: 1. A llergic rhinitis due to pollen - J30.1 (Primary) 2 . O ther allergic rhinitis - J30.89 3 . A llergic rhinitis due to animal (cat) (dog) hair and dander - J30.81 4 . O ther chronic allergic conjunctivitis - H10.45 Plan: * Treatment: * Procedure Codes: 9 5117 IMMUNOTHERAPY INJECTIONS * Follow Up: 1 Week * Billing Information: * Visit Code: * Procedure Codes: 72067 IMMUNOTHERAPY INJECTIONS. * Sign off status: Completed true * Provider: Jeanie Doll MD Date: 10/01/2024 Generated for Leatha velasquez/Boy/Altagracia on: 0 10/11/2024 09:46 AM CDT History and Physical Notes * HPI (History of Present Illness) Category Sub-Category Detail Notes Category Not es *Introduction The patient is here for scheduled immunotherapy. Please see the attached specialty form regarding the specifics of the administration of these vaccines. As per our protocol, they must undergo a screening health questionnaire (medication changes, reaction(s) to last immunotherapy dose(s), current health status, ACT (if appropriate), self-injectable epinephrine on patient(?) and peak flow (if appropriate)). Also, the patient must wait in our office for 30 minutes after receiving the vaccine(s). Furthermore, every patient must have an epinephrine pen (self-injectable) with them at the time of administration--and carry if for the following 1.5 hours after they leave our office. The patient must also have taken their antihistamine the day of the injection, preferably 2 hours prior. The consent form for SCIT (subcutaneous immunotherapy) is on file.
[2024-10-11 19:00] LABS: Alanine Aminotransferase 17 U/L (6-35); Albumin Level 4.2 g/dL (3.5-5.1); Alkaline Phosphatase 55 U/L (38-126); Anion Gap 5 mmol/L (4-12); Aspartate Amino Transferase 35 U/L (14-36); Bilirubin,Total 0.5 mg/dL (0.2-1.3); Blood Urea Nitrogen 13 mg/dL (7-17); Calcium 9.2 mg/dL (8.4-10.2); Carbon Dioxide 29 mmol/L (22-30); Chloride 97 mmol/L (98-107); Cholesterol 185 mg/dL (0-200); Estimated Glomerular Filt Rate 55; Glucose 97 mg/dL (65-110); HDL Direct 59 mg/dL; Potassium 4.6 mmol/L (3.4-5.0); Sodium 131 mmol/L (137-145); Triglycerides 84 mg/dL (<150)
[2024-10-11 19:11] LABS: LDL Cholesterol Direct 91 mg/dL
[2024-10-11 20:08] LABS: Free T3 3.13 pg/mL (2.45-5.93); Vitamin D 25 Hydroxy 62.7 ng/mL
== END 2024-10-11 09:28 | disposition home or self-care (01) ==
PROVIDERS: PCP Internal Medicine; Visit Provider Clinical Nurse Specialist
DX: I47.10 Supraventricular tachycardia, unspecified (principal); D64.9 Anemia, unspecified; E87.1 Hypo-osmolality and hyponatremia; R00.2 Palpitations; E78.5 Hyperlipidemia, unspecified
CPT/HCPCS: 36415; 80053; 80061; 82306; 84443; 84481

== ENCOUNTER 2024-10-11 13:00 | Outpatient (RCR) | payer OTHER, SELFPAY | END 2024-10-30 23:59 | disposition home or self-care (01) | LOC: ANHAUDASC 13:00 | PROVIDERS: PCP Internal Medicine; Visit Provider Clinical Nurse Specialist | DX: Z46.1 Encounter for fitting and adjustment of hearing aid (principal) | CPT/HCPCS: 99199; V5261 ==

== ENCOUNTER 2024-10-16 13:23 | Outpatient (CLI) | payer OTHER, SELFPAY ==
[2024-10-16 13:36] LABS: Basophils Percent Auto 0.4 % (0.2-1.2); Eosinophils Absolute Auto 0.1 K/mm3 (0-0.3); Eosinophils Percent Auto 1.6 % (0-4.4); Hemoglobin 12.5 g/dL (12.0-15.0); Immature Granulocyte Absolute 0.01 K/mm3 (0.00-0.031); Immature Granulocyte Percent A 0.2 % (0-0.5); Lymphocytes Percent Auto 44.6 % (18.3-44.2); Mean Corpuscular HGB Conc 33.8 g/dl (32-36); Mean Corpuscular Hemoglobin 32.6 pg (26-34); Mean Corpuscular Volume 96.6 fl (80-100); Mean Platelet Volume 9.2 fl (7.4-10.4); Monocytes Absolute Auto 0.5 K/mm3 (0.1-0.6); Monocytes Percent Auto 10.7 % (2.6-8.5); Neutrophils Absolute Auto 1.9 K/mm3 (1.3-6.7); Neutrophils Percent Auto 42.5 % (45.5-73.1); Platelet Count Result 242 k/mm3 (150-375); Red Blood Count 3.83 M/mm3 (4.2-5.4); Red Cell Distribution Width 12.9 % (11.5-14.5); White Blood Count 4.5 K/mm3 (4.5-10.0)
[2024-10-16 14:17] LABS: Alanine Aminotransferase 17 U/L (6-35); Albumin Level 4.5 g/dL (3.5-5.1); Alkaline Phosphatase 62 U/L (38-126); Anion Gap 8 mmol/L (4-12); Aspartate Amino Transferase 30 U/L (14-36); Bilirubin,Total 0.7 mg/dL (0.2-1.3); Blood Urea Nitrogen 16 mg/dL (7-17); Calcium 9.3 mg/dL (8.4-10.2); Carbon Dioxide 28 mmol/L (22-30); Chloride 95 mmol/L (98-107); Estimated Glomerular Filt Rate 51; Glucose 120 mg/dL (65-110); Lactate Dehydrogenase 175 U/L (120-246); Potassium 4.9 mmol/L (3.4-5.0); Sodium 131 mmol/L (137-145)
--- OUTSIDE RECORDS SUMMARY | 2024-10-16 14:20 | XMS_ITS | Continuity of Care Document ---
Author Organization [facility] Address [address] [place] [address] [place] [address] Phone Care Team Providers Care Heel Pricker Name Role Phone Kimberli Sorensen Unavailable Unavailable Procedures Procedure Date Office/outpatient Visit, Est Corneal Pachymetry Fundus Photography W/ Report Optic Nerve Topography Optic Nerve Topography Office Consultation Advance Directives Directive Yes / No Effective Date File Name No Information Encounters Encounter Description Practice Location Reason(s) For Visit Diagnoses Date Provider Providers Copied on Encounter Office/outpati ent Visit, Est [facility], [address], [place], [place], [id number], tel:[phone] [facility] No Information [address] [address], [address], [place], [address], [place]. tel:[phone] Referring Provider: Kimberli Williamson, [address], [place], [place], [facility]. tel:[phone] [facility], [address], [place], [place], [id number], [place] tel:[phone] [facility] No Information [address], [address], [place], [address], [place]. tel:[phone] Referring Provider: [facility] [address], [place], [address]. tel:[phone] Office Consultation [facility], [address] [facility] [facility] [address], [place], [place], [address], [place] tel:[phone] [facility] No Information [address] [facility] , [address], [place], [address], [place]. tel:[phone] Referring Provider: Tyler Ball, [address] [facility] [address], [place], [address]. tel:[phone] Family History Family Member Type Diagnosis Age At Onset No Information Payers Payer name Insurance type Covered green party ID Authoriza tion(s) No Information Social History [...]
--- OUTSIDE RECORDS SUMMARY | 2024-10-16 14:20 | XMS_ITS ---
Author Organization [facility] Address [address] [place] [address] Care Team Providers Care Briar Cutter Name Role Phone Robert Max Primary Care Provider Jason Mckeon Unavailable [phone] Allergies No Known Allergies REASON FOR VISIT ARC follow-up; continues SCIT, now on monthly dosing with continued improvement. Increased Flonase BID in Fall with benefit, Recurrent sinusitis. Last infection Fall 2020, Recurrent itchy dry spots to hands, back, and legs. Was seen by dermatology after extensive breakthrough in [place]. S/p patch testing + to [facility] Medications Medication SIG (Take, Route, Frequency, Duration) [...] 09/03/2024 Encounters Encounter Location Date Provider Diagnosis [facility] [address] [facility] [address] [place] [address] 09/03/2024 Jason Benavides Allergic rhinitis du e [...] discussed PID workup, though does follow with Entry Level Recruiter. If repeat infection occurs would check. - [...] seen by dermatology after extensive breakthrough in [place]. S/p patch testing + to [facility]. Now avoiding with benefit Plan Of Treatment [...] discussed PID workup, though does follow with Entry Level Recruiter. If repeat infection occurs would check. - [...] seen by dermatology after extensive breakthrough in [place]. S/p patch testing + to [facility]. Now avoiding with benefit Next Appt Details Follow Up: as scheduled, 6 [facility], Reason: SCIT, Evaluation and Management Provider Name:Kristian HAta Doll , 10/30/2024 11:00:00 AM, [address] [facility], [place], [address], Provider Name:Jason cleveland, 03/25/2025 12:30:00 PM, [address], [address], [place], [address], Procedure Notes * Category Sub-Category Detail Notes SCIT Traditional Aeroallergen Schedul e Administration:: Full dosing administered per SOP and AAIC's titration schedule and/or specific instructions as outlined on the patient's shot record; see attached for specifics re: content, concentration, volume and location of injection(s). Progress Notes * Elías MIXONAbad:1955 (69 yo F)Acc No.[id number]:09/03/2024 Progress Notes Patient: Hilda CRUMP Provider: Lizzy Benavides PA-C :1955 A ge:69 Y S ex:Female Date:09/03/2024 [address] [facility] Pcp:Robert Max Subjective: * Chief Complaints: * A RC follow-up; continues SCIT, now on monthly dosing with continued improvement. Increased Flonase BID in Fall with benefitRecurrent sinusitis. Last infection fallecurrent itchy dry spots to hands, back, and legs. Was seen by dermatology after extensive breakthrough in [place]. S/p patch testing + to [facility] * [...] seen by dermatology after extensive breakthrough in [place]. S/p patch testing + to [facility]. Now [...] of carpet? 1 5 Do you have sxds-ij-abog carpeting? N o What is the age [...] discussed PID workup, though does follow with Entry Level Recruiter. If repeat infection occurs would check. - [...] seen by dermatology after extensive breakthrough in [place]. S/p patch testing + to [facility]. Now avoiding with benefit 8. O thers [...] G 8427 DOC MEDS VERIFIED W/PT OR [id number] IMMUNOTHERAPY INJECTIONS * Preventive Medicine: Counseling: M [...] Management) * Billing Information: * Visit Code: 33629 Office Visit, Est Pt., Level 4. Modifiers: 25 * Procedure Codes: G8427 DOC MEDS VERIFIED W/[place]. [address] IMMUNOTHERAPY INJECTIONS. * APY SITE COORDINATOR Sign off status: Completed true * Provider: Lizzy Benavides PA-C Date: 0 09/03/2024 Generated for Leatha ng/Boy/eTransmitting on: 0 10/16/2024 02:20 PM CDT History and Physical Notes * HPI [...]
--- OUTSIDE RECORDS SUMMARY | 2024-10-16 14:20 | XMS_ITS | CONTINUITY OF CARE DOCUMENT ---
Author Name graciela owens Address Unknown Organization [facility] Address [address] [place] [address] Phone [phone] Care Team Providers Care Animal Nursery Worker Name Role Phone Norm WEST, Jessica Unavailable INSURANCE PROVIDERS Payer name Policy type / Coverage type Rivas red green party ID [employer] [id number]
--- OUTSIDE RECORDS SUMMARY | 2024-10-16 14:20 | XMS_ITS ---
Author Organization [facility] Address [address] [place] [address] Care Team Providers Care Retail Visual Merchandiser Name Role Phone Robert Max Primary Care Provider Unavailab Jason Smith Unavailable [phone] LavonKristian Unavailable [phone] REASON FOR VISIT SCIT - Traditional Schedule [...] Active Encounters Encounter Location Date Provider Diagnosis [facility] [address] [place] [address] 10/01/2024 Kristian Doll Allergic rhinitis du e [...] Name:Kristian Doll , 10/30/2024 11:00:00 AM, [address] [facility], [address], [address], Provider Name:Jason Cunningham megha, 03/25/2025 12:30:00 PM, [address] [facility], [facility] [address], [place], [address], Progress Notes * Elías MIXONaDOB:1955 (69 yo F)Acc No.[id number]:10/01/2024 SCIT-Aeroallergen Patient: Hilda CRUMP Provider: Jeanie Doll MD :1955 A ge:69 Y S ex:Female Date:10/01/2024 Address:[address] [place], [place] [address] Pcp:Robert Max Subjective: * Chief Complaints: * [...] Information: * Visit Code: * Procedure Codes: 24577 IMMUNOTHERAPY INJECTIONS. * Sign off status: Completed true * Provider: Jeanie Doll MD Date: 10/01/2024 Generated for Leatha velasquez/Boy/Altagracia on: 0 10/16/2024 02:20 PM CDT History [...]
--- OUTSIDE RECORDS SUMMARY | 2024-10-16 14:20 | XMS_ITS | Clinical Summary ---
Author Organization [facility] Address [address] [facility] [place] [address] Care Team Providers Care Drapery Hand Name Role Phone Robert Max DO Primary [...] Description 10/18/2024 1:00 PM CDT Office Visit [facility] Oncology and Hematology - [place] [address] [facility] [address] [place] [address] Kris Wilkins MD [address] [facility] [address] [place] [address] Health Maintenance Due Date Last [...] 1-dose 75+ series) 2030 Insurance Care Teams Drapery Hand Relationship Specialty Start Date End Date Robert Max DO [address] [address] PCP - General Internal Medicine 11/23/22
--- OUTSIDE RECORDS SUMMARY | 2024-10-16 14:20 | XMS_ITS | Encounter Summary ---
Author Organization [facility] Address [address] [place] [address] Care Team Providers Care Human Resources Manager Name Role Phone Robert Max DO Primary Care Provider [phone] Reason for Referral * Diagnostic Imaging (Routine) - Pending Review Specialty Diagnoses / Procedures Referred By Contac t Referred To Contact Cardiology Diagnoses PSVT (paroxysmal supraventricular tachycardia) First degree AV block RBBB Chest heaviness Procedures NM MPI SPECT (Rest and/or Stress) Multiple Studies Jimmy Silva MD [address] [facility] [address] [place] [address] Phone: tel: fax: [facility] Referral ID Status Reason Start Date Expiration Date V isits Requested Visits Authorized [id number] Pending Review 10/12/2024 11/11/2025 1 1 Reason for Visit * Reason Comments Follow-up 6 mo follow up on pa lps, PSVT, RBBB, HLD, 1st degree AV block * Consultation (Routine) - Authorized Specialty Diagnoses / Procedures Referred By Contac t Referred To Contact Cardiology Diagnoses [place] [address] [place] [address] [address] Phone: tel: fax: Jimmy Silva MD [address] [facility] [address] [place] [address] Phone: tel: fax: Referral ID Status Reason Start Date Expiration Date Visits Requested Visits Authorized [id number] Authorized Specialty Services Required 10/02/2024 10/03/2025 12 12 Encounter Details Date Type Department Care Team (Latest Contact Info) Description 10/12/2024 11:15 AM CDT Office Visit [facility] Cardiology at [address] [place] [id number] Jimmy Silva MD [address] [address] PSVT (paroxysmal supraventricular tachycardia) (Primary Dx); Supraventricular tachycardia; PVC (premature ventricular contraction); Mixed hyperlipidemia; First degree AV block; Palpitations; RBBB; Chest heaviness Social History Tobacco Use Types Packs/Day Years Used Date Smoking Tobacco: Former Cigarettes 1 30 0 07/04/1972 - 07/04/2002 Smokeless Tobacco: Never Tobacco Cessation:Counseling [...] on file Sexual Orientation Not on file documented as of this encounter Last Filed Vital Signs Vital Sign Reading Time Taken Comments Blood Pressure 118/82 10/12/2024 11:32 AM CDT Pulse 65 10/12/2024 11:32 AM CDT Temperature - - Respiratory Rate - - Oxygen Saturation 95% 10/12/2024 11:32 AM CDT Inhaled Oxygen Concentration - - Weight 75.3 kg (166 lb) 10/12/2024 11:32 AM CDT Height 160 cm (5' 3 ) 10/12/2024 11:32 AM CDT Body Mass Index 29.41 10/12/2024 11:32 AM CDT documented in this encounter Progress Notes * Jimmy Silva MD - 10/12/2024 11:15 AM CDT [facility] Cardiology [address] [place] [address] Date of Visit: 10/12/2024 Patient ID: Hilda Mixon 1955 Chief Complaint Patient presents with Follow-up 6 mo follow up on palps, PSVT, RBBB, HLD, 1st degree AV block Hilda Mixon is a 69 y.o. female who is a former patient of Dr. Fisher with a history of SVT coming to the office for follow-up after ablation. History of Present Illness: Hilda Mixon is a 69 y.o. female with a PMHx of PVC's and PAC's on Holter, hyperlipidemia seen invery kind referral by Micheal Fisher MD for my opinion regarding palpitations and racing heart. 08/23/[address] Fisher: Reports 30 years of palpitations, 2018 wore Holter started on Metoprolol which helped did not resolve but tolerable. Then in May 05 spells of sustained rapid palps diaphoresis tired just wanted to sit down, felt anxious HR up to 130-140bpm. These spells are lifestyle limiting and has to stop unable to continue, not clear syncopal feeling but urge to sit to avoid problems and falling. She described abrupt onset and offset like a lightswitch. Has occ brief fluttering still intermittently, very slightly lightheaded. No h/o syncope or CP. In Jul 2023 had another less sig spell lasted 20 min HR 100-110bpm. She goes to gym 3x/week surgical orderly activity walking and light weights. She remains on Toprol XL 25mg BID. 10/07/23 follow up visit with Dr. Fisher: Feeling quite well has occ blurbs palps but wonders if sheis just less aware. Noted on one occ at gym seated HR 140bpm but no sxs short lived. On Toprol XL 25mg BID. She is doing fine otherwise no new limitations no CP or SOB. No syncope. 04/23/2024 office visit with CABLE FERRY OPERATOR: She had consultation with Dr. Mora and proceeded to have ablation on 03/28/2024. Since the ablation her resting heart rate has been little higher, previously in the50s and now it is 64-65 bpm. She also notices her heart rate now elevates into the 80s with activity it previously did not. She still feels light soft flutters that may last a half a day. Blood pressure was elevated when she had the ablation so she got a blood pressure cuff for home and has startedchecking it, recent home reading 112/78. Follow-up note 10/12/2024: She was doing great post ablation up until about September 01. Since then she has had recurrence of her palpitations and tachycardia. Generally they would last shorter periodsof time but she did have an episode today lasting for about 45 minutes I did wake her up from sleep. Her symptoms do bother her. She also has some palpitations which she describes as flip-flops whichare associated with lightheadedness. Those flip-flops though are different than her SVT/atrial tachycardia palpitations. She did have an increase in the metoprolol through electrophysiology and is now wearing a monitor. She has follow-up with EP. She has had some heaviness in her chest occurring about 1 time per month or less occurring randomly and will lasts for various amounts of time. Does notradiate. It is generally nonexertional. Has no syncope, paroxysmal nocturnal dyspnea, orthopnea, edema. Medical History: Past Medical History: Diagnosis Date Arthritis 2018 GERD (gastroesophageal reflux disease) Hyperlipidemia Palpitations Pancytopenia (HCC) PONV (postoperative nausea and vomiting) Skin cancer Past Surgical History: Procedure Laterality Date CARPAL TUNNEL RELEASE OTHER SURGICAL HISTORY 2015 LATERAL MENISCAL REPAIR OTHER SURGICAL HISTORY 1976 TRANSPLANT- ULNAR NERVE TONSILLECTOMY Social History Tobacco Use Smoking Status Former Current packs/day: 0.00 Average packs/day: 1 pack/day for 30.0 years (30.0 ttl pk-yrs) Types: Cigarettes Start date: 07/04/1972 Quit date: 07/04/2002 Years since quittin.2 Smokeless Tobacco Never Social History Tobacco Use Smoking status: Former Current packs/day: 0.00 Average packs/day: 1 pack/day for 30.0 years (30.0 ttl pk-yrs) Types: Cigarettes Start date: 07/04/1972 Quit date: 07/04/2002 Years since quittin.2 Smokeless tobacco: Never Substance and Sexual Activity Drug use: Yes Types: Marijuana Comment: 1 gummie 2 times a month- micro dose Sexual activity: Yes Partners: Male control/protection: None Alcohol Use: Not At Risk (03/26/2024) AUDIT-C Frequency of Alcohol Consumption: 2-3 times a week Average Number of Drinks: 1 or 2 Frequency of Binge Drinking: Never Family History Problem Relation Age of Onset Hypertension Mother Diabetes Mother Alzheimer's disease Mother Hyperlipidemia Mother Heart disease Father Colon cancer Father Thyroid disease Father Lung cancer Father Allergy (severe) Father Arthritis Father Hearing loss Father Heart attack Father Cancer Sister Anesthesia problems Neg Hx Review of Systems Constitutional: Negative for malaise/fatigue, weight gain and weight loss. Cardiovascular: Positive for palpitations. Negative for chest pain, dyspnea on exertion, leg swelling, near-syncope, orthopnea, paroxysmal nocturnal dyspnea and syncope. Respiratory: Negative for cough, shortness of breath and sleep disturbances due to breathing. Hematologic/Lymphatic: Negative for bleeding problem. Does not bruise/bleed easily. Vital Signs: BP 118/82 (BP Location: Left arm, Patient Position: Sitting) Pulse 65 Ht 160 cm (5' 3 ) Wt 75.3 kg (166 lb) SpO2 95% BMI 29.41 kg/m?? Physical Exam Vitals reviewed. Constitutional: General: She is not in acute distress. Appearance: She is well-developed. HENT: Head: Normocephalic and atraumatic. Eyes: General: No scleral icterus. Conjunctiva/sclera: Conjunctivae normal. Neck: Vascular: No JVD. Trachea: No tracheal deviation. Cardiovascular: Rate and Rhythm: Normal rate and regular rhythm. Heart sounds: Normal heart sounds. No murmur heard. Pulmonary: Effort: Pulmonary effort is normal. No respiratory distress. Breath sounds: Normal breath sounds. Skin: General: Skin is warm and dry. Neurological: Mental Status: She is alert and oriented to person, place, and time. Psychiatric: Mood and Affect: Mood normal. Behavior: Behavior normal. No Known Allergies Current Outpatient Medications: acetaminophen (TYLENOL) 500 mg tablet, Take 2 tablets (1,000 mg total) by mouth every 6 (six) hoursas needed for pain, Disp: , Rfl: atorvastatin (LIPITOR) 10 mg tablet, Take 1 tablet (10 mg total) by mouth every other day, Disp: , Rfl: azelastine (ASTELIN) 137 mcg (0.1 %) nasal spray, Administer 1 spray into each nostril 2 (two) times a day, Disp: , Rfl: celecoxib (CeleBREX) 200 mg capsule, Take 1 capsule (200 mg total) by mouth 2 (two) times a day, Disp: , Rfl: cetirizine (ZyrTEC) 10 mg tablet, Take 1 tablet (10 mg total) by mouth daily, Disp: , Rfl: cholecalciferol (VITAMIN D-3) 5,000 unit tablet, Take 1 tablet (5,000 Units total) by mouth every morning, Disp: , Rfl: fluticasone propionate (Flonase Allergy Relief) 50 mcg/actuation nasal spray, Administer 1 spray into each nostril 2 (two) times a day, Disp: , Rfl: ibuprofen 200 mg tab/cap, Take 2 tablet/capsule (400 mg total) by mouth every 6 (six) hours as needed for pain, Disp: , Rfl: inulin (FIBER GUMMIES ORAL), Take 2 tablet/chew tab by mouth every morning, Disp: , Rfl: Lactobacillus acidophilus (PROBIOTIC ORAL), Take 1 tablet by mouth nightly, Disp: , Rfl: metoprolol tartrate (LOPRESSOR) 50 mg immediate release tablet, Take 1 tablet (50 mg total) by mouth 2 (two) times a day, Disp: , Rfl: montelukast (SINGULAIR) 10 mg tablet, Take 1 tablet (10 mg total) by mouth nightly, Disp: , Rfl: multivit-minerals/folic acid (CENTRUM ADULT 50 PLUS ORAL), Take 1 tablet by mouth every morning, Disp: , Rfl: omeprazole (PriLOSEC) 40 mg capsule, Take 1 capsule (40 mg total) by mouth every morning, Disp: , Rfl: polyethylene glycol (MIRALAX) 17 gram packet, Take 1 packet (17 g total) by mouth daily after lunch, Disp: , Rfl: psyllium 0.52 gram capsule, Take 1 capsule (0.52 g total) by mouth 2 (two) times a day, Disp: , Rfl: simethicone (GAS-X ORAL), Take 2 tablets by mouth 2 (two) times a day as needed (gas), Disp: , Rfl: triamcinolone (KENALOG) 0.1 % ointment, Apply 1 Application topically 2 (two) times a day as neededfor irritation or rash, Disp: , Rfl: fexofenadine (Tatiana Allergy) 180 mg tablet, Take 1 tablet (180 mg total) by mouth every morning (Patient not taking: Reported on 08/02/2024), Disp: , Rfl: Lab Results Component Value Date POTASSIUM 4.6 03/26/2024 BUNSER 9 03/26/2024 CREATININE 1.07 03/26/2024 Lab Results Component Value Date WBC 4.7 03/26/2024 HGB 12.8 03/26/2024 HCT 38.3 03/26/2024 MCV 96.5 (H) 03/26/2024 No results found for this or any previous visit (from the past 4 hours). Lab Results Component Value Date POCCHOL 191 08/23/2023 POCHDL 66 08/23/2023 POCTRIG 364 08/23/2023 POCLDL 53 08/23/2023 POCNONHDL 126 08/23/2023 POCCHLPL 191 08/23/2023 ECHO 08/26/23 Normal left ventricular systolic function. No focal wall motion abnormalities. Normal left ventricular size. Normal left ventricular wall thickness. Indeterminate diastolic function. Ejection fraction is measured at 67 %. Mild mitral valve regurgitation. No evidence of hemodynamically significant aortic stenosis by Doppler. Aortic cusps appear mildly sclerotic. Trileaflet aortic valve. Mild aortic valve regurgitation. Estimated peak RVSP is 30 mmHg. Mild tricuspid regurgitation. Assessment: Diagnoses and all orders for this visit: PSVT (paroxysmal supraventricular tachycardia) (Primary) - NM MPI SPECT (Rest and/or Stress) Multiple Studies; Future Recurrent symptoms Supraventricular tachycardia - Ambulatory referral to Cardiology PVC (premature ventricular contraction) Symptomatic Mixed hyperlipidemia On statin with LDL today of 120 First degree AV block - NM MPI SPECT (Rest and/or Stress) Multiple Studies; Future Palpitations Flip-flops associated PACs and PVCs. She also has more sustained tachycardia related to her SVT RBBB - NM MPI SPECT (Rest and/or Stress) Multiple Studies; Future No evidence of higher degree block Chest heaviness - NM MPI SPECT (Rest and/or Stress) Multiple Studies; Future Atypical for angina but not excluded Plan/Recommendations: She is s/p ablation for SVT. Continue higher dose metoprolol 50 mg p.o. b.i.d because of palpitations and SVT.. Can further up titrate if need be or transition to calcium channel ruperto or other antiarrhythmic. This decision will be per electrophysiology. Continue atorvastatin for hyperlipidemia She does have some chest heaviness symptoms. Will order a Lexiscan myocardial perfusion study for ischemic evaluation given her heaviness as well as arrhythmia. She does have some knee pain and orthopedic issues at may limit her ability to exercise and treadmill. Additionally she has an underlying abnormal EKG including a right bundle-branch block which will make EKG interpretation more difficult. Follow-up in 6 months or sooner as clinically indicated Jimmy Silva MD, [facility] This note is dictated and transcribed using [employer] Direct Software. Shoe Singer variancesmay occur. Despite proofreading, typographical errors may occur. documented in this encounter Miscellaneous Notes * Addendum Note - Viviana Young MA - 10/12/2024 11:15 AM CDTAddended by: VIVIANA YOUNG on: 10/16/2024 10:05 AM Modules accepted: Orders documented in this encounter Plan of Treatment Scheduled Orders Name Type Priority Associated Diagnoses Orde r Schedule NM MPI SPECT (Rest and/or Stress) Multiple Studies Imaging Schedule Routine, Read Routine (OP Routine) PSVT (paroxysmal supraventricular tachycardia) First degree AV block RBBB Chest heaviness Expected: 10/12/2024, Expires: 10/12/2025 documented as of this encounter Procedures Procedure Name Priority Date/Time Associated Diagnosis Comments POCT LIPID PANEL Routine 10/12/2024 11:2 8 AM CDT Mixed hyperlipidemia documented in this encounter Results * POCT lipid panel (10/12/2024 11:28 AM CDT) Cholesterol, POC 201 mg/dL HDL, POC 64 mg/dL Triglycerides, POC 87 mg/dL LDL Cholesterol POC 120 mg/dL Chol/HDL Ratio, POC 3.1 Non-HDL Cholesterol, POC 137 mg/dL Cholesterol Total, POC 201 mg/dL Capillary blood 10/12/2024 1 1:28 AM CDT us Jimmy Silva MD POINT OF CARE TEST ORDERA BLES Final Result documented in this encounter Visit Diagnoses Diagnosis PSVT (paroxysmal supraventricular tachycardia)- Primary Paroxysmal supraventricular tachycardia Supraventricular tachycardia Other specified cardiac dysrhythmias PVC (premature ventricular contraction) Other premature beats Mixed hyperlipidemia First degree AV block First degree atrioventricular block Palpitations RBBB Chest heaviness Other chest pain documented in this encounter Discontinued Medications Medication Sig Discontinue Reason Start Date End Da te metoprolol tartrate (LOPRESSOR) 25 mg immediate release tabletIndications:Atrial Arrhythmia Take 1.5 tablets (37.5 mg total) by mouth 2 (two) times a day Alternate therapy 06/28/2024 10/12/2024 documented as of this encounter Historical Medications * This list may reflect changes made after this encounter. metoprolol tartrate (LOPRESSOR) 50 mg immediate release tablet Take 1 tablet (50 mg total) by mouth 2 (two) times a day added in this encounter Orders Outpatient Referral Count Last Ordered Date Fir st Ordered Date AMB REFERRAL TO CARDIOLOGY 1 10/12/2024 documented in this encounter Care Teams Human Resources Manager Relationship Specialty Start Date End Date Robert Max DO PCP - General Internal Medicine 03/14/24 documented as of this encounter
--- OUTSIDE RECORDS SUMMARY | 2024-10-16 14:20 | XMS_ITS ---
Author Organization [facility] Address [address] [place] [address] Care Team Providers Care Railroad Car Loader Name Role Phone Robert Max Primary Care Provider Jason Mckeon Unavailable [phone] Kristian Doll Unavailable [phone] REASON FOR VISIT SCIT (Aeroallergen) Encounters Encounter Location Date Provider Diagnosis [facility] [address] [facility] [address] [place] [phone] 08/20/2024 Kristian Doll Plan Of Treatment Next Appt Details Provider Name:Kristian Doll , 10/30/2024 11:00:00 AM, [address], [address] [place] [address], [phone], Provider Name:Jason cleveland, 03/25/2025 12:30:00 PM, [address] [employer], [address] [place] [address], [phone], Progress Notes * Elías MIXONaDOB:1955 (69 yo F)Acc No.[id number]:08/20/2024 SCIT-Aeroallergen Patient: Hilda CRUMP Provider: Jeanie Doll MD :1955 A ge:69 Y S ex:Female Date:08/20/2024 [address] [facility] Pcp:Robert Max Subjective: * Chief Complaints: * 1 . SCIT (Aeroallergen). * Medical History: Objective: * Vitals: Assessment: Plan: * Treatment: * Billing Information: * Visit Code: * Procedure Codes: * Electronic signature of Sally Doll MD, [facility] on 10/16/2024 at 02:20 PM CDT Sign off status: Pending * Provider: Jeanie Doll MD Date: 0 08/20/2024 Generated for Leatha velasquez/Boy/Altagracia on: 0 10/16/2024 02:20 PM CDT
--- OUTSIDE RECORDS SUMMARY | 2024-10-16 14:21 | XMS_ITS | Referral Summary ---
Author Organization [facility] [address] Address [address] [place] [address] Care Team Providers Care Cad Designer Drafter Name Role Phone Robert Max DO Primary Care Provider [phone]- [phone] Encounters Date Type Department Care Team Description 10/12/2024 11:15 AM CDT Office Visit [facility] Medical Group Cardiology at [address] [place] [address] Jimmy Silva MD PSVT (paroxysmal supraventricular tachycardia) (Primary Dx); Supraventricular tachycardia; PVC (premature ventricular contraction); Mixed hyperlipidemia; First degree AV block; Palpitations; RBBB; Chest heaviness 09/24/2024 10:45 AM CDT Ancillary Procedure [facility] Cardiology [address] [place] [address] Medicine 8th [place] [address] [place] [address] SVT (supraventricular tachycardia) 09/24/2024 Telephone [facility] Cardiology [address] [place] [address] Medicine 8th [place] [address] [place] [address] Ralph Mora MD 08/02/2024 1:45 PM POKER ROOM MANAGER Office Visit [facility] Cardiology [facility] Medical Office Building [address] [place] [address] Radha Nicholson NP PSVT (paroxysmal supraventricular tachycardia) (Primary Dx); SVT (supraventricular tachycardia); PVC (premature ventricular contraction) from Last 3 Months Allergies No known active allergies Medications montelukast (SINGULAIR) 10 mg tabletIndicatio ns:Seasonal Allergic Rhinitis Take 1 tablet (10 mg total) by mouth nightly Active cholecalciferol (VITAMIN D-3) 5,000 unit tabletIndicatio ns:Osteoporosis ,Vitamin D Deficiency Take 1 tablet (5,000 Units total) by mouth every morning Active fexofenadine (Tatiana Allergy) 180 mg tabletIndicatio ns:Seasonal Allergic Rhinitis Take 1 tablet (180 mg total) by mouth every morning Active celecoxib (CeleBREX) 200 mg capsuleIndicati ons:Osteoarthri tis Take 1 capsule (200 mg total) by mouth 2 (two) times a day Active atorvastatin (LIPITOR) 10 mg tabletIndicatio ns:hyperlipidem ia Take 1 tablet (10 mg total) by mouth every other day Active azelastine (ASTELIN) 137 mcg (0.1 %) nasal sprayIndication s:Seasonal Allergic Rhinitis Administer 1 spray into each nostril 2 (two) times a day Active fluticasone propionate (Flonase Allergy Relief) 50 mcg/actuation nasal sprayIndication s:Allergic Rhinitis Administer 1 spray into each nostril 2 (two) times a day Active omeprazole (PriLOSEC) 40 mg capsuleIndicati ons:Stress Ulcer Prophylaxis Take 1 capsule (40 mg total) by mouth every morning 4 Active triamcinolone (KENALOG) 0.1 % ointmentIndicat ions:Skin Inflammation,sk in rash Apply 1 Application topically 2 (two) times a day as needed for irritation or rash 4 Active psyllium 0.52 gram capsuleIndicati ons:constipatio n Take 1 capsule (0.52 g total) by mouth 2 (two) times a day Active polyethylene glycol (MIRALAX) 17 gram packetIndicatio ns:constipation Take 1 packet (17 g total) by mouth daily after lunch Active multivit-minera ls/folic acid (CENTRUM ADULT 50 PLUS ORAL)Indication s:Supplement Take 1 tablet by mouth every morning Active inulin (FIBER GUMMIES ORAL)Indication s:Gut health Take 2 tablet/chew tab by mouth every morning Active Lactobacillus acidophilus (PROBIOTIC ORAL)Indication s:Gut health Take 1 tablet by mouth nightly Active acetaminophen (TYLENOL) 500 mg tabletIndicatio ns:Pain Take 2 tablets (1,000 mg total) by mouth every 6 (six) hours as needed for pain Active ibuprofen 200 mg tab/capIndicati ons:Pain Take 2 tablet/capsule (400 mg total) by mouth every 6 (six) hours as needed for pain Active simethicone (GAS-X ORAL)Indication s:gas Take 2 tablets by mouth 2 (two) times a day as needed (gas) Active cetirizine (ZyrTEC) 10 mg tablet Take 1 tablet (10 mg total) by mouth daily 4 Active metoprolol tartrate (LOPRESSOR) 50 mg immediate release tablet Take 1 tablet (50 mg total) by mouth 2 (two) times a day Active metoprolol tartrate (LOPRESSOR) 25 mg immediate release tabletIndicatio ns:Atrial Arrhythmia Take 1.5 tablets (37.5 mg total) by mouth 2 (two) times a day 90 tablet 2 4 025 Discontin ued(Alter kristyn therapy) Active Problems Problem Noted Date Diagnosed Date Chest heaviness 10/12/2024 PVC (premature ventricular contraction) 05/08/20 24 Assessment & Plan (08/02/2024 1:51 PM POKER ROOM MANAGER): -Continue metoprolol for PVCs Assessment & Plan (05/08/2024 4:06 PM POKER ROOM MANAGER): - Continue metoprolol for PVCs - If palpitations increase, can consider 3 day Holter SVT (supraventricular tachycardia) 03/28/2024 Assessment & Plan (08/03/2024 8:50 AM POKER ROOM MANAGER): Atrial tachycardia - Multiple atrial tachycardias originating [...] BID Assessment & Plan (05/08/2024 4:06 PM POKER ROOM MANAGER): Atrial tachycardia - Multiple atrial tachycardias originating [...] AM CDT Temperature - - Respiratory Rate 26 03/28/2024 4:55 PM CDT Oxygen Saturation 95% 10/12/2024 11:32 AM CDT Inhaled Oxygen Concentration - - Weight 75.3 kg (166 lb) 10/12/2024 11:32 AM CDT Height 160 cm (5' 3 ) 10/12/2024 11:32 AM CDT Body Mass Index 29.41 10/12/2024 11:32 AM CDT Plan of Treatment Not on file Medical Devices Implanted Type Area Prosthetic Lab Technician Device Identifier Shelf Expiration Date Model / Serial / Lot [employer] Device Closure Vascade Od5 Fr Femoral Artery [id number] - [id number] Implanted:Qty: 1 on 03/28/2024 by Ralph Mora MD at [facility] Vascular Closure Device [employer] 09/21/2025 700-500DX- 05U / / [id number] [employer] Device Closure Vascade Od5 Fr Femoral Artery [id number] - [id number] Implanted:Qty: 1 on 03/28/2024 by Ralph Mora MD at [facility] Vascular Closure Device [employer] 11/28/2025 700-500DX- 05U / / [id number] [employer] Vascade Mvp 6-12fr Venous Closure [id number] - [id number] Implanted:Qty: 1 on 03/28/2024 by Ralph Mora MD at [facility] Vascular Closure Device [employer] 10/30/2025 800-612C-1 0U / / [id number] [employer] Vascade Mvp 6-12fr Venous Closure [id number] - [id number] Implanted:Qty: 1 on 03/28/2024 by Ralph Mora MD at [facility] Vascular Closure Device [employer] 10/30/2025 800-612C-1 0U / / [id number] Procedures Procedure Name Priority Date/Time Associated Diagnosis Comments POCT LIPID PANEL Routine 10/12/2024 11:2 8 AM CDT Mixed hyperlipidemia ECG 12-LEAD Routine 08/02/2024 1:48 PM POKER ROOM MANAGER PSVT (paroxysmal supraventricular tachycardia) from Last 3 Months Results * POCT lipid panel (10/12/2024 11:28 AM CDT) Cholesterol, POC 201 mg/dL HDL, POC 64 mg/dL Triglycerides, POC 87 mg/dL LDL Cholesterol POC 120 mg/dL Chol/HDL Ratio, POC 3.1 Non-HDL Cholesterol, POC 137 mg/dL Cholesterol Total, POC 201 mg/dL Capillary blood 10/12/2024 1 1:28 AM CDT us Jimmy Silva MD POINT OF CARE TEST ORDERA BLES Final Result * ECG 12 lead (08/02/2024 1:48 PM POKER ROOM MANAGER) us Radha Nicholson NP ECG ORDERABLES Edited Re sult - Final from Last 3 Months Insurance [facility] Care Teams Cad Designer Drafter Relationship Specialty Start Date End Date Robert Max DO PCP - General Internal Medicine 03/14/24
--- OUTSIDE RECORDS SUMMARY | 2024-10-16 14:21 | XMS_ITS | Clinical Summary ---
Author Organization [facility] [address] Address [address] [place] [address] Care Team Providers Care Hub Borer Name Role Phone Robert Max DO Primary Care Provider [phone]- [phone] Allergies No known active allergies Medications montelukast [...] 24 Assessment & Plan (08/02/2024 1:51 PM GRAPHIC COORDINATOR): -Continue metoprolol for PVCs Assessment & Plan (05/08/2024 4:06 PM GRAPHIC COORDINATOR): - Continue metoprolol for PVCs - If palpitations increase, can consider 3 day Holter SVT (supraventricular tachycardia) 03/28/2024 Assessment & Plan (08/03/2024 8:50 AM GRAPHIC COORDINATOR): Atrial tachycardia - Multiple atrial tachycardias originating [...] BID Assessment & Plan (05/08/2024 4:06 PM GRAPHIC COORDINATOR): Atrial tachycardia - Multiple atrial tachycardias originating [...] Description 10/12/2024 11:15 AM CDT Office Visit [facility] Medical Group Cardiology at [address] [place] [address] Jimmy Silva MD PSVT (paroxysmal supraventricular tachycardia) (Primary Dx); Supraventricular tachycardia; PVC (premature ventricular contraction); Mixed hyperlipidemia; First degree AV block; Palpitations; RBBB; Chest heaviness 09/24/2024 10:45 AM CDT Ancillary Procedure [facility] Cardiology [facility] [address]th [place] [address] [place] [address] SVT (supraventricular tachycardia) 09/24/2024 Telephone [facility] Cardiology [address] [place] [address] 8th [place] [address] [place] [address] Ralph Mora MD 08/02/2024 1:45 PM GRAPHIC COORDINATOR Office Visit [facility] Cardiology [facility] Medical Office Building [address] [place] [address] Radha Nicholson NP PSVT (paroxysmal supraventricular tachycardia) [...] History Relation Name Comments Allergy (severe) Father Grrald Arthritis Father Grrald Colon cancer Father Grrald Hearing loss Father Grrald Heart attack Father Grrald Heart disease Father Grrald Lung cancer Father Grrald Thyroid disease Father Grrald Alzheimer's disease Mother Vanessa Diabetes Mother Vanessa Hyperlipidemia Mother Vanessa Hypertension Mother Vanessa Cancer Sister Fariba Anesthesia problems Neg Hx Relation Name Status Comments Father Grrald Mother Vanessa Sister Fariba Social History Tobacco [...] 10/12/2024 11:32 AM CDT Plan of Treatment Health Maintenance Due Date [...] 02/19/2021, 12/04/2020 Medical Devices Implanted Type Area Child Monitor Device Identifier Shelf Expiration Date Model / Serial / Lot [employer] Device Closure Vascade Od5 Fr Femoral Artery [id number] - [id number] Implanted:Qty: 1 on 03/28/2024 by Ralph Mora MD at [facility] Vascular Closure Device [employer] 09/21/2025 700-500DX- 05U / / [id number] [id number] [employer] Device Closure Vascade Od5 Fr Femoral Artery [id number] - [id number] Implanted:Qty: 1 on 03/28/2024 by Ralph Mora MD at [facility] Vascular Closure Device [employer] 11/28/2025 700-500DX- 05U / / [id number] [id number] [employer] Vascade Mvp 6-12fr Venous Closure [id number] - [id number] Implanted:Qty: 1 on 03/28/2024 by Ralph Mora MD at [facility] Vascular Closure Device [employer] 10/30/2025 800-612C-1 0U / / [id number] [employer] Vascade Mvp 6-12fr Venous Closure [id number] - [id number] Implanted:Qty: 1 on 03/28/2024 by Ralph Mora MD at [facility] Vascular Closure Device [employer] 10/30/2025 800-612C-1 0U / / [id number] Procedures Procedure Name Priority Date/Time Associated Diagnosis Comments POCT LIPID PANEL Routine 10/12/2024 11:2 8 AM CDT Mixed hyperlipidemia ECG 12-LEAD Routine 08/02/2024 1:48 PM GRAPHIC COORDINATOR PSVT (paroxysmal supraventricular tachycardia) from Last 3 [...] * ECG 12 lead (08/02/2024 1:48 PM GRAPHIC COORDINATOR) Radha Nicholson NP ECG ORDERABLES Edited Re sult - Final from Last 3 Months Insurance [facility] Care Teams Hub Borer Relationship Specialty Start Date End Date Robert Max DO PCP - General Internal Medicine 03/14/24
--- OUTSIDE RECORDS SUMMARY | 2024-10-16 14:21 | XMS_ITS | Patient Health Record ---
Author Organization [facility] Address [address] [place] [address] Care Team Providers Care Pattern Lease Inspector Name Role Phone Robert Max Primary Care Provider Unavailab Jason Smith Unavailable [phone] Kristian Doll Unavailable [phone] [employer], Provider Unavailable Unavailab le Allergies No Known Allergies Reason For Referral Reason Z91.09 Referring Provider First Name Robert Referring Provider Last Name Winter Referring Provider Speciality Internal M edicine Referred Organization [facility] Referred Provider Jason Benavides Referred Address [address] [place],[address], Referred Provider Specialty Allergy/Immu nology Referral Priority [...] Status W/U Status Risk Notes Problem Hyperlipidemia (08627565) Hyperlipidemia, unspecified (E78.5) Active confirmed Problem Chronic allergic conjunctivitis (34160748) Other chronic allergic conjunctivitis (H10.45) Active confirmed Problem Allergic rhinitis caused by pollen (disorder) (63493952) Allergic rhinitis due to pollen (J30.1) Active confirmed Problem Allergic rhinitis caused by animal hair and dander (487173877196925) Allergic rhinitis due to animal (cat) (dog) hair and dander (J30.81) Active confirmed Problem Allergic rhinitis (98058172) Other allergic rhinitis (J30.89) Active confirmed Problem Gastro-esophageal reflux disease without esophagitis (573126131) Gastro-esophageal reflux disease without esophagitis (K21.9) Active confirmed Problem Palpitations (92740432) Palpitations (R00.2) Active confirmed Problem Allergic rhinitis caused by pollen (disorder) (28887166) Allergic rhinitis due to pollen (J30.1) Active confirmed Problem Allergic rhinitis caused by animal hair and dander (490177643244039) Allergic rhinitis due to animal (cat) (dog) hair and dander (J30.81) Active confirmed Problem Allergic rhinitis (34737239) Other allergic rhinitis (J30.89) Active confirmed Problem Chronic allergic conjunctivitis (68735602) Other chronic allergic conjunctivitis (H10.45) Active confirmed Problem Eruption of skin (967950895) Rash and other nonspecific skin eruption (R21) Active confirmed Problem Chronic sinusitis (38405743) Chronic sinusitis, unspecified (J32.9) Active confirmed Vital Signs Oximetry 99 % 09/03/2024 Blood pressure diastolic 88 mm Hg 09/03/2024 Height 63 in 09/03/2024 Blood pressure systolic 134 mm Hg 09/03/2024 Weight 172.6 lbs 09/03/2024 BMI 30.57 kg/m2 09/03/2024 Encounters Encounter Location Date Provider Diagnosis [address] [address] 12/17/2023 Provider [facility] [address] [address] 11/08/2023 Kristian Doll Allergic rhinitis du e to pollen J30.1 ; Other allergic rhinitis J30.89 ; Allergic rhinitis due to animal (cat) (dog) hair and dander J30.81 and Other chronic allergic conjunctivitis H10.45 [facility] [address] [address] 12/05/2023 Kristian Doll Allergic rhinitis du e to pollen J30.1 ; Other allergic rhinitis J30.89 ; Allergic rhinitis due to animal (cat) (dog) hair and dander J30.81 and Other chronic allergic conjunctivitis H10.45 [facility] [address] [place] [address] [employer] [address] [address] 01/02/2024 Kristian Doll Allergic rhinitis du e to pollen J30.1 ; Other allergic rhinitis J30.89 ; Allergic rhinitis due to animal (cat) (dog) hair and dander J30.81 and Other chronic allergic conjunctivitis H10.45 [facility] [address] [place] [address] [employer] [address] [address] 02/02/2024 Kristain Doll Allergic rhinitis du e to pollen J30.1 ; Other allergic rhinitis J30.89 ; Allergic rhinitis due to animal (cat) (dog) hair and dander J30.81 and Other chronic allergic conjunctivitis H10.45 [facility] [address] [place] [address] [employer] [address] [address] 03/12/2024 Jason Benavides Allergic rhinitis du e to pollen J30.1 ; Allergic rhinitis due to animal (cat) (dog) hair and dander J30.81 ; Other allergic rhinitis J30.89 ; Other chronic allergic conjunctivitis H10.45 ; Chronic sinusitis, unspecified J32.9 ; Palpitations R00.2 and Rash and other nonspecific skin eruption R21 [facility] [address] [place] [address] [employer] [address] [address] 04/09/2024 Kristian Doll Allergic rhinitis du e to pollen J30.1 ; Other allergic rhinitis J30.89 ; Allergic rhinitis due to animal (cat) (dog) hair and dander J30.81 and Other chronic allergic conjunctivitis H10.45 [facility] [address] [place] [address] [employer] [address] [address] 05/07/2024 Kristian Doll Allergic rhinitis du e to pollen J30.1 ; Other allergic rhinitis J30.89 ; Allergic rhinitis due to animal (cat) (dog) hair and dander J30.81 and Other chronic allergic conjunctivitis H10.45 [facility] [address] [place] [address] [address] 06/18/2024 Kristian Doll Allergic rhinitis du e to pollen J30.1 ; Other allergic rhinitis J30.89 ; Allergic rhinitis due to animal (cat) (dog) hair and dander J30.81 and Other chronic allergic conjunctivitis H10.45 [facility] [address] [place] [address] 07/30/2024 Kristian Doll Allergic rhinitis du e to pollen J30.1 ; Other allergic rhinitis J30.89 ; Allergic rhinitis due to animal (cat) (dog) hair and dander J30.81 and Other chronic allergic conjunctivitis H10.45 [facility] [address] [place] [address] 08/06/2024 Kristian Doll Allergic rhinitis du e to pollen J30.1 ; Other allergic rhinitis J30.89 ; Allergic rhinitis due to animal (cat) (dog) hair and dander J30.81 and Other chronic allergic conjunctivitis H10.45 [facility] [address] [place] [address] 08/14/2024 Kristian Doll Allergic rhinitis du e to pollen J30.1 ; Other allergic rhinitis J30.89 ; Allergic rhinitis due to animal (cat) (dog) hair and dander J30.81 and Other chronic allergic conjunctivitis H10.45 [facility] [address] [place] [address] 09/03/2024 Jason Benavides Allergic rhinitis du e to pollen J30.1 ; Allergic rhinitis due to animal (cat) (dog) hair and dander J30.81 ; Other allergic rhinitis J30.89 ; Other chronic allergic conjunctivitis H10.45 ; Chronic sinusitis, unspecified J32.9 ; Palpitations R00.2 and Rash and other nonspecific skin eruption R21 [facility] [address] [place] [address] 10/01/2024 Kristian Doll Allergic rhinitis du e to pollen J30.1 ; Other allergic rhinitis J30.89 ; Allergic rhinitis due to animal (cat) (dog) hair and dander J30.81 and Other chronic allergic conjunctivitis H10.45 [facility] [address] [address] 12/14/2023 Jason Benavides Assessments Encounter Date Diagnosis [...] discussed PID workup, though does follow with Follow Up Specialist. If repeat infection occurs would check. - [...] agreeable but wants to speak with her Follow Up Specialist firist. If repeat infection occurs would check. [...] Name:Kristian Doll , 10/30/2024 11:00:00 AM, 2022 [facility], [address], [address], Provider Name:Jason cleveland, 03/25/2025 12:30:00 PM, 2022 [facility], [address], [place], [address], Insurance Providers Payer Name Payer Address Payer Phone Subscriber Number Group Number Insured Name Patient Relationship to Insured Coverage Start Date Coverage End Date [employer] [address] [address] [place] [phone] [id number] Hilda Mixon Self - patient is [...]
--- OUTSIDE RECORDS SUMMARY | 2024-10-16 14:21 | XMS_ITS | Clinical Summary ---
Author Organization [facility] Address [address] [place] [address] Care Team Providers Care Chimney Builder Brick Name Role Phone Anca Parnell MD Primary Care Provider + Source Comments [facility],non-owned Affiliates and Associated Physician Practices is amultiple site organization consisting of ambulatory clinics and hospital sitesin [place], [place], [place] and [place]. This disclosure is being madepursuant to the Care Everywhere program and may not contain all information available regarding this patient. Last updated 18.[facility] Immunizations Immunization Administration Dates Next Due FLU VACCINE QUAD IIV4 PF ID 03/22/2016 Social History Tobacco Use Types Packs/Day Years Used Date Smoking Tobacco: Never Assessed Comments Unknown Sex and Gender Information Value Date Recorded Sex Assigned at Not on file Legal Sex Female 5:50 PM CDT Gender Identity Not on file [...] VACCINE (1 of 2) 2005 COVID-19 VACCINE (2023-2 5 season) 2024 DEPRESSION SCREENING 07/04/2024 MEDICARE [...] on patient's age to complete this topic Insurance [facility] [employer] SELF PAY NO INSURANCE Member Subscriber Plan / Payer (Ef fective for All Dates) Name:Hilda Morton Member ID:Not on file Relation to Subscriber:Not on file Name:HILDA MORTON Subscriber ID:Not on file Address: [address] [place], [place] [id number] Payer ID:Not on file Group ID:Not on file Type:Self Pay Address: [place], [place] SELF PAY NO INSURANCE Member Subscriber Plan / Payer (Ef fective for All Dates) Name:Hilda Morton Member ID:Not on file Relation to Subscriber:Not on file Name:HILDA MORTON Subscriber ID:Not on file Address: [address] [place] [phone] Payer ID:Not on file Group ID:Not on file Type:Self Pay Address: [place], [place] Care Teams Chimney Builder Brick Relationship Specialty Start Date End Date Anca Parnell MD [address] [facility] [address] [place] [address] PCP - General 07/25/18
== END 2024-10-16 13:24 | disposition home or self-care (01) ==
LOC: ANHLAB 13:24
PROVIDERS: PCP Internal Medicine; Visit Provider Internal Medicine Hematology & Oncology
DX: D72.820 Lymphocytosis (symptomatic) (principal)
CPT/HCPCS: 36415; 80053; 83615; 85025

== ENCOUNTER 2024-12-13 13:08 | Outpatient (CLI) | payer OTHER, SELFPAY ==
--- OUTSIDE RECORDS SUMMARY | 2024-12-13 13:44 | XMS_ITS | Referral Summary ---
Author Organization [facility] [address] [place] [address] 162 [address] [facility] 162 [place] [address] Care Team Providers Care Racing Driver Name Role Phone Robert Max DO Primary Care Provider [phone]- [phone] Encounters Date Type Department Care Team Description 11/27/2024 Results Follow-Up [facility] Cardiology [address] [place] [address] Medicine 8th [place] [address] [place] [address] Radha Nicholson NP ECG 12 lead 11/27/2024 1:15 PM CDT Procedure visit [facility] Cardiology [address] [place] [address] 162 [address] [place] [address] SVT (supraventricular tachycardia); Palpitations; Encounter for monitoring flecainide therapy 11/23/2024 Orders Only [facility] Cardiology [address] [place] [address] 8th [place] [address] [place] [address] Radha Nicholson NP SVT (supraventricular tachycardia) (Primary Dx); Palpitations; Encounter for monitoring flecainide therapy 11/23/2024 Orders Only [facility] Cardiology [address] [place] [address] Medicine 8th [place] [address] [place] [address] Radha Nicholson NP PSVT (paroxysmal supraventricular tachycardia) (Primary Dx); Encounter for monitoring flecainide therapy 10/24/2024 Results Follow-Up [facility] Cardiology [address] [place] [address] [address] [place] [address] Jimmy Kulkarni MD NM MPI SPECT (Rest and/or Stress) Multiple Studies 10/23/2024 10:15 AM CDT Ancillary Procedure [facility] Cardiology [address] [facility] [address] [place] [address] PSVT (paroxysmal supraventricular tachycardia); First degree AV block; RBBB; Chest heaviness 10/12/2024 11:15 AM CDT Office Visit [facility] Cardiology at [address] [place] [address] Jimmy Kulkarni MD PSVT (paroxysmal supraventricular tachycardia) (Primary Dx); Supraventricular tachycardia; PVC (premature ventricular contraction); Mixed hyperlipidemia; First degree AV block; Palpitations; RBBB; Chest heaviness 09/24/2024 10:45 AM CDT Ancillary Procedure [facility] Cardiology [facility] 8th [place] [address] [place] [address] SVT (supraventricular tachycardia) 09/24/2024 Telephone [facility] Cardiology [facility] 8th [place] [address] [place] [address] Ralph Marx MD from Last 3 Months Allergies No known active allergies Medications montelukast (SINGULAIR) 10 mg tabletIndicati ons:Seasonal Allergic Rhinitis Take 1 tablet (10 mg total) by mouth nightly Active cholecalcifero l (VITAMIN D-3) 5,000 unit tabletIndicati ons:Osteoporos is,Vitamin D Deficiency Take 1 tablet (5,000 Units total) by mouth every morning Active fexofenadine (Tatiana Allergy) 180 mg tabletIndicati ons:Seasonal Allergic Rhinitis Take 1 tablet (180 mg total) by mouth every morning Active celecoxib (CeleBREX) 200 mg capsuleIndicat ions:Osteoarth ritis Take 1 capsule (200 mg total) by mouth 2 (two) times a day Active atorvastatin (LIPITOR) 10 mg tabletIndicati ons:hyperlipid emia Take 1 tablet (10 mg total) by mouth every other day Active azelastine (ASTELIN) 137 mcg (0.1 %) nasal sprayIndicatio ns:Seasonal Allergic Rhinitis Administer 1 spray into each nostril 2 (two) times a day Active fluticasone propionate (Flonase Allergy Relief) 50 mcg/actuation nasal sprayIndicatio ns:Allergic Rhinitis Administer 1 spray into each nostril 2 (two) times a day Active omeprazole (PriLOSEC) 40 mg capsuleIndicat ions:Stress Ulcer Prophylaxis Take 1 capsule (40 mg total) by mouth every morning 03/14/20 24 Active triamcinolone (KENALOG) 0.1 % ointmentIndica tions:Skin Inflammation,s kin rash Apply 1 Application topically 2 (two) times a day as needed for irritation or rash 03/12/20 24 Active psyllium 0.52 gram capsuleIndicat ions:constipat ion Take 1 capsule (0.52 g total) by mouth 2 (two) times a day Active polyethylene glycol (MIRALAX) 17 gram packetIndicati ons:constipati on Take 1 packet (17 g total) by mouth daily after lunch Active multivit-muck miner als/folic acid (CENTRUM ADULT 50 PLUS ORAL)Indicatio ns:Supplement Take 1 tablet by mouth every morning Active inulin (FIBER GUMMIES ORAL)Indicatio ns:Gut health Take 2 tablet/chew tab by mouth every morning Active Lactobacillus acidophilus (PROBIOTIC ORAL)Indicatio ns:Gut health Take 1 tablet by mouth nightly Active acetaminophen (TYLENOL) 500 mg tabletIndicati ons:Pain Take 2 tablets (1,000 mg total) by mouth every 6 (six) hours as needed for pain Active ibuprofen 200 mg tab/capIndicat ions:Pain Take 2 tablet/capsule (400 mg total) by mouth every 6 (six) hours as needed for pain Active simethicone (GAS-X ORAL)Indicatio ns:gas Take 2 tablets by mouth 2 (two) times a day as needed (gas) Active cetirizine (ZyrTEC) 10 mg tablet Take 1 tablet (10 mg total) by mouth daily 03/12/20 24 Active flecainide (TAMBOCOR) 50 mg tablet Take 1 tablet (50 mg total) by mouth 2 (two) times a day 60 tablet 5 11/24/19 25 025 Active metoprolol tartrate (LOPRESSOR) 25 mg immediate release tablet Take 1 tablet (25 mg total) by mouth 2 (two) times a day 180 tablet 3 12/04/19 25 Active metoprolol tartrate (LOPRESSOR) 50 mg immediate release tablet Take 1 tablet (50 mg total) by mouth 2 (two) times a day 180 tablet 1 11/06/19 25 025 Discontinued metoprolol tartrate (LOPRESSOR) 50 mg immediate release tablet Take 1 tablet (50 mg total) by mouth 2 (two) times a day 180 tablet 1 11/20/19 25 025 Discontinued(R eorder) Active Problems Problem Noted Date Diagnosed Date Chest heaviness 10/12/2024 PVC (premature ventricular contraction) 05/08/20 24 Assessment & Plan (08/02/2024 1:51 PM TARGETEER): -Continue metoprolol for PVCs Assessment & Plan (05/08/2024 4:06 PM TARGETEER): - Continue metoprolol for PVCs - If palpitations increase, can consider 3 day Holter SVT (supraventricular tachycardia) 03/28/2024 Assessment & Plan (08/03/2024 8:50 AM TARGETEER): Atrial tachycardia - Multiple atrial tachycardias originating [...] BID Assessment & Plan (05/08/2024 4:06 PM TARGETEER): Atrial tachycardia - Multiple atrial tachycardias originating [...] 11:32 AM CDT Height 160 cm (5' 3) 10/12/2024 11:32 AM CDT Body Mass Index 29.41 10/12/2024 11:32 AM CDT Plan of Treatment Not on file Medical Devices Implanted Type Area Cuprous Chloride Operator Device Identifier Shelf Expiration Date Model / Serial / Lot [employer] Device Closure Vascade Od5 Fr Femoral Artery [id number] - [id number] Implanted:Qty: 1 on 03/28/2024 by Ralph Marx MD at [facility] Vascular Closure Device [employer] 09/21/2025 700-500DX- [id number] / / [id number] [employer] Device Closure Vascade Od5 Fr Femoral Artery [id number] - [id number] Implanted:Qty: 1 on 03/28/2024 by Ralph Marx MD at [facility] Vascular Closure Device [employer] 11/28/2025 [id number]- [id number] / / [id number] [employer] Vascade Mvp 6-12fr Venous Closure [id number] - [id number] Implanted:Qty: 1 on 03/28/2024 by Ralph Marx MD at [facility] Vascular Closure Device [employer] 10/30/2025 [id number] / / [id number] [employer] Vascade Mvp 6-12fr Venous Closure [id number] - [id number] Implanted:Qty: 1 on 03/28/2024 by Ralph Marx MD at [facility] Vascular Closure Device [employer] 10/30/2025 [id number]-[id number] [id number] / / [id number] Procedures Procedure Name Priority Date/Time Associated Diagnosis Comments ECG 12-LEAD Routine 11/27/2024 12:05 PM CDT SVT (supraventricular tachycardia) Palpitations Encounter for monitoring flecainide therapy NM MPI SPECT (REST AND/OR STRESS) MULTIPLE STUDIES Schedule Routine, Read Routine (OP Routine) 10/23/2024 11:24 AM CDT PSVT (paroxysmal supraventricular tachycardia) First degree AV block RBBB Chest heaviness POCT LIPID PANEL Routine 10/12/2024 11:2 8 AM CDT Mixed hyperlipidemia MCT - MOBILE CARDIAC TELEMETRY EVENT MONITOR Routine 09/24/2024 11:29 AM CDT SVT (supraventricular tachycardia) from Last 3 Months Results * ECG 12 lead (11/27/2024 12:05 PM CDT) 11/27/2024 12:0 5 PM CDT us Radha Nicholson DIRECTOR CLINICAL RESEARCH ECG ORDERABLES Edited Re sult - Final * NM MPI SPECT (Rest and/or Stress) Multiple Studies (10/23/2024 11:24 AM CDT) Anatomical Region Laterality Modality Body N/A Nuclear Medicine 10/23/2024 7:56 AM CDT Narrative 10/23/2024 6:[address] [facility] Cardiology [address] [facility] [address], [place] [address] [address] [facility] [address], [place] [address] P:[phone] P:[phone] MPI Imaging Report Patient Name: HILDA MIXON C : 1955 Study Date: 10/23/2024 7:56:48 AM Gender: F Tech: [facility] Location: [facility] Provider: JIMMY KULKARNI Height(Cm): 160 BSA: Weight(Kg): 75.3 BMI: 29.41 Order Provider: JIMMY KULKARNI PHYSICIAN: Referring Physician: Dr. Max. HCG Physician: Jonah Kulkarni M.D. Interpreting Physician: Jonah Kulkarni M.D. Stress Supervision: Jonah Kulkarni M.D. PROCEDURES: Pharmacologic SPECT Report: Myocardial perfusion imaging with Tc99M Sestamibi SPECT at rest and stress post regadenoson (Lexiscan) infusion. INDICATIONS: Family Hx CAD, High Cholesterol, Former Smoker, I47.10 Supraventricular tachycardia, unspecified, I44.0 Atrioventricular block, first degree, I45.10 Unspecified right bundle-branch block, and R07.89 Other chest pain. FINDINGS: Procedural Findings: One day rest/stress was used. Tc99m Sestamibi injected IV at rest was 10.5 millicuries 32.3 millicuries of Tc99M Sestamibi injected IV during Lexiscan stress Lexiscan 0.4mg administered IV over 10 seconds. Patient had no symptoms during stress test. Baseline heart rate was 57 BPM Maximum Heart Rate Achieved was: 139 BPM Baseline blood pressure was 140/80 mmHg Post Stress Blood Pressure was 124/72 mmHg Termination: Protocol complete. Resting ECG: Normal sinus rhythm, low voltage. RBBB. Arrhythmia: Atrial tachycardia is noted in recovery. Perfusion Findings: Normal perfusion imaging. No definite fixed or reversible defects. Technical quality of study is excellent. Prone imaging was not performed. Left ventricle cavity size at rest is normal. Left ventricle cavity size with stress is unchanged. A TID of 0.83 was automatically calculated. LV Function: There is hyperdynamic global left ventricular systolic function. Left ventricular ejection fraction is 76 %. CONCLUSIONS: There is hyperdynamic global left ventricular systolic function. Left ventricular ejection fraction is 76 %. Myocardial perfusion imaging is normal. Negative EKG portion of stress test. Likely atrial tachycardia noted early in recovery which did persist for several minutes. Electronically Signed By: Jimmy Kulkarni MD 10/23/2024 5:36:15 PM CDT Electronically Signed By: Jimmy Kulkarni MD 10/23/2024 5:36:15 PM CDT Procedure Note Jimmy Kulkarni MD - 10/23/2024 [facility] Cardiology [address], [place] [address] [address], [place] [address] P:[phone] P:[phone] MPI Imaging Report Patient Name: HILDA MIXON C : 1955 Study Date: 10/23/2024 7:56:48 AM Gender: F Tech: [facility] Location: [facility] Provider: JIMMY KULKARNI Height(Cm): 160 BSA: Weight(Kg): 75.3 BMI: 29.41 Order Provider: JIMMY KULKARNI PHYSICIAN: Referring Physician: Dr. Max. HCG Physician: Jonah Kulkarni M.D. Interpreting Physician: Jonah Kulkarni M.D. Stress Supervision: Jonah Kulkarni M.D. PROCEDURES: Pharmacologic SPECT Report: Myocardial perfusion imaging with Tc99M Sestamibi SPECT at rest and stresspost regadenoson (Lexiscan) infusion. INDICATIONS: Family Hx CAD, High Cholesterol, Former Smoker, I47.10 Supraventriculartachycardia, unspecified, I44.0 Atrioventricular block, first degree, I45.10Unspecified right bundle-branch block, and R07.89 Other chest pain. FINDINGS: Procedural Findings: One day rest/stress was used. Tc99m Sestamibi injected IV at rest was 10.5 millicuries 32.3 millicuries of Tc99M Sestamibi injected IV during Lexiscan stress Lexiscan 0.4mg administered IV over 10 seconds. Patient had no symptoms during stress test. Baseline heart rate was 57 BPM Maximum Heart Rate Achieved was: 139 BPM Baseline blood pressure was 140/80 mmHg Post Stress Blood Pressure was 124/72 mmHg Termination: Protocol complete. Resting ECG: Normal sinus rhythm, low voltage. RBBB. Arrhythmia: Atrial tachycardia is noted in recovery. Perfusion Findings: Normal perfusion imaging. No definite fixed or reversible defects.Technical quality of study is excellent. Prone imaging was not performed. Left ventricle cavitysize at rest is normal. Left ventricle cavity size with stress is unchanged. A TID of0.83 was automatically calculated. LV Function: There is hyperdynamic global left ventricular systolic function. Leftventricular ejection fraction is 76 %. CONCLUSIONS: There is hyperdynamic global left ventricular systolic function. Leftventricular ejection fraction is 76 %. Myocardial perfusion imaging is normal. Negative EKG portion of stress test. Likely atrial tachycardia noted early in recovery which did persist forseveral minutes. Electronically Signed By: Jimmy Kulkarni MD 10/23/2024 5:36:15 PM CDT Electronically Signed By: Jimmy Kulkarni MD 10/23/2024 5:36:15 PM CDT Jimmy Kulkarni MD IMG NM PROCEDURES Final R esult * POCT lipid panel (10/12/2024 11:28 AM CDT) Cholesterol, POC 201 mg/dL HDL, POC 64 mg/dL Triglycerides, POC 87 mg/dL LDL Cholesterol POC 120 mg/dL Chol/HDL Ratio, POC 3.1 Non-HDL Cholesterol, POC 137 mg/dL Cholesterol Total, POC 201 mg/dL Capillary blood 10/12/2024 1 1:28 AM CDT Jimmy Kulkarni MD POINT OF CARE TEST ORDERA BLES Final Result * [facility] Mobile Cardiac Telemetry Event Monitor (09/24/2024 11:29 AM CDT) Anatomical Region Laterality Modality Electrocardiogra phy 10/27/2024 11:5 9 PM CDT Narrative 11/05/2024 8:[address] [facility] [place] [address] CARDIAC EVENT MONITOR REPORT Patient Name: HILDA MIXON C : 1955 (69y 6m) Gender: F Study Date: 10/27/2024 11:59:00 PM Ht(Inch): Wt(Lb): BSA: Tech: Location: [facility] Order Provider: RALPH MARX BMI: Ref Provider: RALPH MARX PROCEDURES: Event Report: [facility] MOBILE CARDIAC TELEMETRY EVENT MONITOR [[id number]]. Enrollment Period: 09/28/24-10/27/24. Location: [facility]. INDICATIONS: I47.10 Supraventricular tachycardia, unspecified. FINDINGS: Event Data: Min Rate: 47 BPM Min Rate Timestamp: 2024-10-03 11:34:00 Max Rate: 149 BPM Max Rate Timestamp: 2024-09-29 11:14:00 Mean Rate: 62 BPM Total beats: [id number] SUMMARY: 1 Stable: SVT (>42 Secs), Sinus Rhythm w/IVCD 1 Stable: SVT (12 sec ), Sinus Rhythm w/1st Degree AV Block 1 Stable: Sinus Rhythm w/1st Degree AV Block/IVCD/Run of V-Tach (122 beats) 1 Stable: SVT, Sinus Rhythm w/IVCD/1st Degree AV Block 1 Critical: Sinus Tachycardia, Sinus Rhythm w/IVCD/Couplet PACs/PACs Flutter or Skipped Beats; Passed Out; Rapid or Fast Heartbeat Critical rhythm is likely sinus tach or afib w RVR-low voltage duly noted. Summary $ReportSummary$. CONCLUSIONS: 1. 1 Stable: SVT (>42 Secs), Sinus Rhythm w/IVCD 1 Stable: SVT (12 sec ), Sinus Rhythm w/1st Degree AV Block 1 Stable: Sinus Rhythm w/1st Degree AV Block/IVCD/Run of V-Tach (122 beats) 1 Stable: SVT, Sinus Rhythm w/IVCD/1st Degree AV Block 1 Critical: Sinus Tachycardia, Sinus Rhythm w/IVCD/Couplet PACs/PACs Flutter or Skipped Beats; Passed Out; Rapid or Fast Heartbeat Critical rhythm is likely sinus tach or afib w RVR-low voltage duly noted Summary $ReportSummary$. 2. I have reviewed the PDF and all the ECG strips. I agree with the interpretations as detailed in the report. 3. The PDF can be found in the [facility] Patient chart. Please go to the Cardiology tab, click on the holter or event exam. Scroll to bottom where the ORDER-LEVEL Documents reside and click the blue link to the pdf. Electronically Signed By: Noah Roberson Jr., M.D. 11/05/2024 8:13:14 PM CDT Electronically Signed By: Noah Roberson Jr., M.D. 11/05/2024 8:13:14 PM CDT Procedure Note Noah Roberson MD PhD - 11/05/2024 [facility] Cardiac Diagnostic Lab [address] [place] [id number] CARDIAC EVENT MONITOR REPORT Patient Name: HILDA MIXON C : 1955 (69y 6m) Gender: F Study Date: 10/27/2024 11:59:00 PM Ht(Inch): Wt(Lb): BSA: Tech: Location: [facility] Order Provider: RALPH MARX BMI: Ref Provider: RALPH MARX PROCEDURES: Event Report: [facility] MOBILE CARDIAC TELEMETRY EVENT MONITOR [[id number]]. Enrollment Period: 09/28/24-10/27/24. Location: [facility]. INDICATIONS: I47.10 Supraventricular tachycardia, unspecified. FINDINGS: Event Data: Min Rate: 47 BPM Min Rate Timestamp: 2024-10-03 11:34:00 Max Rate: 149 BPM Max Rate Timestamp: 2024-09-29 11:14:00 Mean Rate: 62 BPM Total beats: [id number] SUMMARY: 1 Stable: SVT (>42 Secs), Sinus Rhythm w/IVCD 1 Stable: SVT (12 sec ), Sinus Rhythm w/1st Degree AV Block 1 Stable: Sinus Rhythm w/1st Degree AV Block/IVCD/Run of V-Tach (122beats) 1 Stable: SVT, Sinus Rhythm w/IVCD/1st Degree AV Block 1 Critical: Sinus Tachycardia, Sinus Rhythm w/IVCD/Couplet PACs/PACs Flutter or Skipped Beats; Passed Out; Rapid or Fast Heartbeat Critical rhythm is likely sinus tach or afib w RVR-low voltage duly noted.Summary $ReportSummary$. CONCLUSIONS: 1. 1 Stable: SVT (>42 Secs), Sinus Rhythm w/IVCD 1 Stable: SVT (12 sec ), Sinus Rhythm w/1st Degree AV Block 1 Stable: Sinus Rhythm w/1st Degree AV Block/IVCD/Run of V-Tach (122beats) 1 Stable: SVT, Sinus Rhythm w/IVCD/1st Degree AV Block 1 Critical: Sinus Tachycardia, Sinus Rhythm w/IVCD/Couplet PACs/PACs Flutter or Skipped Beats; Passed Out; Rapid or Fast Heartbeat Critical rhythm is likely sinus tach or afib w RVR-low voltage duly notedSummary $ReportSummary$. 2. I have reviewed the PDF and all the ECG strips. I agree with theinterpretations as detailed in the report. 3. The PDF can be found in the [facility] Patient chart. Please go to theCardiology tab, click on the holter or event exam. Scroll to bottom where the ORDER-LEVELDocuments reside and click the blue link to the pdf. Electronically Signed By: Noah Roberson Jr., M.D. 11/05/2024 8:13:14 PM CDT Electronically Signed By: Noah Roberson Jr., M.D. 11/05/2024 8:13:14 PM CDT Ralph Marx MD CV CARDIAC SERVICES PRO CEDURES Final Result from Last [address] [facility] Care Teams Racing Driver Relationship Specialty Start Date End Date Robert Max DO PCP - General Internal Medicine 03/14/24
--- OUTSIDE RECORDS SUMMARY | 2024-12-13 13:44 | XMS_ITS | Patient Health Record ---
Author Organization Formerly [facility] ([address]) Address [address] [place] [address] Care Team Providers Care Medical Leader Name Role Phone Robert Max Primary Care Provider Unavailab Jason Smith Unavailable [phone] Kristian Doll Unavailable [phone] [employer], Provider Unavailable Unavailab le Allergies No Known Allergies Reason For Referral Reason Z91.09 Referring Provider First Name Robert Referring Provider Last Name Winter Referring Provider Speciality Internal M edicine Referred Organization [facility] Referred Provider Jason Benavides Referred Address [address] [place], [place],[address], Referred Provider Specialty Allergy/Immu nology Referral Priority Routine Medications Medication SIG (Take, Route, Frequency, Duration) Notes Start Date End Date Status SINGULAIR 10 mg 1 tab(s) orally once a day Active Tatiana Allergy 180 MG 1 tab(s) orally once a day Not-Taking FLONASE 50 mcg/inh 2 spray(s) in each nostril twice a day for 30 days Active SIT (TRADITIONAL) variable per schedule SC per schedule for to be determined Active AUVI -Q 0.3 mg as directed intramuscularly once for 1 dose(s) Active CELECOXIB 200 mg Act natan Triamcinolone Acetonide 0.1 % APPLY OINTMENT TOPICALLY THREE TIMES DAILY FOR 7 DAYS for 7 Active PREVACID 30 mg 1 cap(s) orally once a day Active EpiPen 2-Johan 0.3 MG/0.3ML as directed intramuscularly once for 30 days Active ATORVASTATIN 10 mg 1 tab(s) orally once a day Active Azelastine HCl 137 MCG/SPRAY 2 sprays in each nostril Nasally Twice a day for 30 days Active COLACE sodium 100 mg 1 cap(s) orally 2 times a day Active Colace 100 MG 1 cap(s) orally 2 times a day Not-Taking NASAL WASHES N/A DIRECTED INTRANASALLY NEEDED for [...] twice a day for 30 day(s) Active Triamcinolone Acetonide 0.1 % 1 application Externally Twice a day for 30 days Active Metoprolol Tartrate 25 MG 1 tab(s) orally 2 times a day Active Celecoxib 200 MG Act natan Prevacid 30 MG 1 cap(s) orally once a day Active Cetirizine HCl 10 MG 1 tablet Orally Once a day for 30 days Active Azelastine HCl 137 MCG/SPRAY 2 sprays in each nostril Nasally Twice a day for 30 days Active Nasal Washes N/A as directed intranasally Active Immunizations Vaccine Route Administration Date Status [...] Status W/U Status Risk Notes Problem Hyperlipidemia (34843274) Hyperlipidemia, unspecified (E78.5) Active confirmed Problem Chronic allergic conjunctivitis (79848079) Other chronic allergic conjunctivitis (H10.45) Active confirmed Problem Allergic rhinitis caused by pollen (disorder) (07267348) Allergic rhinitis due to pollen (J30.1) Active confirmed Problem Allergic rhinitis caused by animal hair and dander (941176169756684) Allergic rhinitis due to animal (cat) (dog) hair and dander (J30.81) Active confirmed Problem Allergic rhinitis (77981681) Other allergic rhinitis (J30.89) Active confirmed Problem Gastro-esophageal reflux disease without esophagitis (622890068) Gastro-esophageal reflux disease without esophagitis (K21.9) Active confirmed Problem Palpitations (97887377) Palpitations (R00.2) Active confirmed Problem Allergic rhinitis caused by pollen (disorder) (80392208) Allergic rhinitis due to pollen (J30.1) Active confirmed Problem Allergic rhinitis caused by animal hair and dander (975323573416119) Allergic rhinitis due to animal (cat) (dog) hair and dander (J30.81) Active confirmed Problem Allergic rhinitis (46021403) Other allergic rhinitis (J30.89) Active confirmed Problem Chronic allergic conjunctivitis (83694695) Other chronic allergic conjunctivitis (H10.45) Active confirmed Problem Eruption of skin (817654670) Rash and other nonspecific skin eruption (R21) Active confirmed Problem Chronic sinusitis (79689753) Chronic sinusitis, unspecified (J32.9) Active confirmed Vital Signs Oximetry 99 % 09/03/2024 Blood pressure diastolic 88 mm Hg 09/03/2024 Height 63 in 09/03/2024 Blood pressure systolic 134 mm Hg 09/03/2024 Weight 172.6 lbs 09/03/2024 BMI 30.57 kg/m2 09/03/2024 Encounters Encounter Location Date Provider Diagnosis [facility] [address] [place] [address] 12/17/2023 Provider [facility]-Migration [facility] [employer] [address] [address] 01/02/2024 Kristian Doll Allergic rhinitis du e to pollen J30.1 ; Other allergic rhinitis J30.89 ; Allergic rhinitis due to animal (cat) (dog) hair and dander J30.81 and Other chronic allergic conjunctivitis H10.45 [facility] [address] [address] 02/02/2024 Kristian Lavon Allergic rhinitis du e to pollen J30.1 ; Other allergic rhinitis J30.89 ; Allergic rhinitis due to animal (cat) (dog) hair and dander J30.81 and Other chronic allergic conjunctivitis H10.45 [facility] [address] [place] [address] 03/12/2024 Jason Makayla Allergic rhinitis du e to pollen J30.1 ; Allergic rhinitis due to animal (cat) (dog) hair and dander J30.81 ; Other allergic rhinitis J30.89 ; Other chronic allergic conjunctivitis H10.45 ; Chronic sinusitis, unspecified J32.9 ; Palpitations R00.2 and Rash and other nonspecific skin eruption R21 [facility] [address] [place] [address] 04/09/2024 Kristian Doll Allergic rhinitis du e to pollen J30.1 ; Other allergic rhinitis J30.89 ; Allergic rhinitis due to animal (cat) (dog) hair and dander J30.81 and Other chronic allergic conjunctivitis H10.45 [facility] [address] [place] [address] 05/07/2024 Kristian Lavon Allergic rhinitis du e to pollen J30.1 ; Other allergic rhinitis J30.89 ; Allergic rhinitis due to animal (cat) (dog) hair and dander J30.81 and Other chronic allergic conjunctivitis H10.45 [facility] [address] [place] [address] 06/18/2024 Kristianmaik Doll Allergic rhinitis du e to pollen J30.1 ; Other allergic rhinitis J30.89 ; Allergic rhinitis due to animal (cat) (dog) hair and dander J30.81 and Other chronic allergic conjunctivitis H10.45 [facility] [address] [place] [address] 07/30/2024 Kristian Doll Allergic rhinitis du e to pollen J30.1 ; Other allergic rhinitis J30.89 ; Allergic rhinitis due to animal (cat) (dog) hair and dander J30.81 and Other chronic allergic conjunctivitis H10.45 [facility] [address] [place] [address] 08/06/2024 Kristian Lavon Allergic rhinitis du e to pollen J30.1 ; Other allergic rhinitis J30.89 ; Allergic rhinitis due to animal (cat) (dog) hair and dander J30.81 and Other chronic allergic conjunctivitis H10.45 [facility] [address] [place] [address] 08/14/2024 Kristian Lavon Allergic rhinitis du e to pollen J30.1 ; Other allergic rhinitis J30.89 ; Allergic rhinitis due to animal (cat) (dog) hair and dander J30.81 and Other chronic allergic conjunctivitis H10.45 [facility] [address] [place] [address] 09/03/2024 Jason Benavides Allergic rhinitis du e to pollen J30.1 ; Allergic rhinitis due to animal (cat) (dog) hair and dander J30.81 ; Other allergic rhinitis J30.89 ; Other chronic allergic conjunctivitis H10.45 ; Chronic sinusitis, unspecified J32.9 ; Palpitations R00.2 and Rash and other nonspecific skin eruption R21 [facility] [address] [place] [phone] 10/01/2024 Kristian Lavon Allergic rhinitis du e to pollen J30.1 ; Other allergic rhinitis J30.89 ; Allergic rhinitis due to animal (cat) (dog) hair and dander J30.81 and Other chronic allergic conjunctivitis H10.45 [facility] [address] [place] [phone] 10/30/2024 Kristianmaik Doll Allergic rhinitis du e to pollen J30.1 ; Other allergic rhinitis J30.89 ; Allergic rhinitis due to animal (cat) (dog) hair and dander J30.81 and Other chronic allergic conjunctivitis H10.45 [facility] [address] [place] [address] 11/27/2024 Kristian Doll Allergic rhinitis du e to pollen J30.1 ; Other allergic rhinitis J30.89 ; Allergic rhinitis due to animal (cat) (dog) hair and dander J30.81 and Other chronic allergic conjunctivitis H10.45 [facility] [address] [facility] [address] [place] [address] 12/14/2023 Jason Benavides Assessments Encounter Date Diagnosis (ICD Code) Assessment Notes Treatment Notes Treatment Clinical Notes Section Notes 01/02/2024 Allergic rhinitis due to pollen (ICD-10 [...] rhinitis due to pollen (ICD-10 - J30.1) 10/30/2024 Allergic rhinitis due to pollen (ICD-10 - J30.1) 11/27/2024 Allergic rhinitis due to pollen (ICD-10 - J30.1) 10/30/2024 Other allergic rhinitis (ICD-10 - J30.89) 10/01/2024 Other allergic rhinitis (ICD-10 - J30.89) 11/27/2024 Other allergic rhinitis (ICD-10 - J30.89) 09/03/2024 Other allergic rhinitis (ICD-10 - J30.89) Follow allergen avoidance, meds and continue SCIT as an adjunctive treatment to current regimen 08/14/2024 Other allergic rhinitis (ICD-10 - J30.89) 08/06/2024 Other allergic rhinitis (ICD-10 - J30.89) 07/30/2024 Other allergic rhinitis (ICD-10 - J30.89) 06/18/2024 Other allergic rhinitis (ICD-10 - J30.89) 05/07/2024 Other allergic rhinitis (ICD-10 - J30.89) 04/09/2024 Other allergic rhinitis (ICD-10 - J30.89) 03/12/2024 Other allergic rhinitis (ICD-10 - J30.89) Follow allergen avoidance, meds and continue SCIT as an adjunctive treatment to current regimen 02/02/2024 Other allergic rhinitis (ICD-10 - J30.89) 01/02/2024 Other allergic rhinitis (ICD-10 - J30.89) 01/02/2024 Allergic rhinitis due to animal (cat) [...] (dog) hair and dander (ICD-10 - J30.81) 10/30/2024 Allergic rhinitis due to animal (cat) (dog) hair and dander (ICD-10 - J30.81) 11/27/2024 Allergic rhinitis due to animal (cat) (dog) hair and dander (ICD-10 - J30.81) 11/27/2024 Other chronic allergic conjunctivitis (ICD-10 - H10.45) 10/30/2024 Other chronic allergic conjunctivitis (ICD-10 - H10.45) 09/03/2024 Chronic sinusitis, unspecified (ICD-10 - J32.9) Recurrent infections, typically 1-2 yearly with some years up to 3-4, last infection Fall 2020. None sicne then - Previosuly discussed PID workup, though does follow with [employer]. If repeat infection occurs would check. - [...] agreeable but wants to speak with her [employer] firist. If repeat infection occurs would check. [...] Of Treatment Next Appt Details Provider Name:Kristian ReeseAta Doll , 12/20/2024 11:00:00 AM, [address] [facility] [address], [place], [address], Provider Name:Niurka tinsley, 03/25/2025 12:30:00 PM, [address] [employer], [place], [address], Insurance Providers Payer Name Payer Address Payer Phone Subscriber Number Group Number Insured Name Patient Relationship to Insured Coverage Start Date Coverage End Date [employer] [address] [address] [place] [address] [id number] Hilda Mixon Self - patient is [...]
--- OUTSIDE RECORDS SUMMARY | 2024-12-13 13:44 | XMS_ITS | Clinical Summary ---
Author Organization [facility] [address] Address [address] [place] [address] Care Team Providers Care Mica Plate Layer Name Role Phone Robert Max DO Primary Care Provider [phone] Allergies No known active allergies Medications montelukast [...] total) by mouth daily after lunch Active multivit-shale miner als/folic acid (CENTRUM ADULT 50 PLUS [...] 24 Assessment & Plan (08/02/2024 1:51 PM GAS DISPATCHER): -Continue metoprolol for PVCs Assessment & Plan (05/08/2024 4:06 PM GAS DISPATCHER): - Continue metoprolol for PVCs - If palpitations increase, can consider 3 day Holter SVT (supraventricular tachycardia) 03/28/2024 Assessment & Plan (08/03/2024 8:50 AM GAS DISPATCHER): Atrial tachycardia - Multiple atrial tachycardias originating [...] BID Assessment & Plan (05/08/2024 4:06 PM GAS DISPATCHER): Atrial tachycardia - Multiple atrial tachycardias originating [...] Date Type Department Care Team Description 11/27/2024 1:15 PM CDT Procedure visit [facility] Cardiology [address] [place] [address] [place] [phone] SVT (supraventricular tachycardia); Palpitations; Encounter for monitoring flecainide therapy 11/27/2024 Results Follow-Up [address] [place] [address] [place] [address] Radha Nicholson, SILVESTRE ECG 12 lead 11/23/2024 Orders Only [address] [place] [address] [place] [address] Radha Nicholson, SILVESTRE SVT (supraventricular tachycardia) (Primary Dx); Palpitations; Encounter for monitoring flecainide therapy 11/23/2024 Orders Only [address] [place] [address] [place] [address] Radha Nicholson, SILVESTRE PSVT (paroxysmal supraventricular tachycardia) (Primary Dx); Encounter for monitoring flecainide therapy 10/24/2024 Results Follow-Up [facility] Cardiology [address] [place] [address] [place] [phone] Geraldo Kulkarni MD NM MPI SPECT (Rest and/or Stress) Multiple Studies 10/23/2024 10:15 AM CDT Ancillary Procedure [facility] Cardiology [address] [place] [address] [place] [phone] PSVT (paroxysmal supraventricular tachycardia); First degree AV block; RBBB; Chest heaviness 10/12/2024 11:15 AM CDT Office Visit [facility] Cardiology at [address] [place] [address] Geraldo Kulkarni MD PSVT (paroxysmal supraventricular tachycardia) (Primary Dx); Supraventricular tachycardia; PVC (premature ventricular contraction); Mixed hyperlipidemia; First degree AV block; Palpitations; RBBB; Chest heaviness 09/24/2024 10:45 AM CDT Ancillary Procedure [facility] Cardiology [address] [facility] 8th [place] [address] [place] [address] SVT (supraventricular tachycardia) 09/24/2024 Telephone [facility] Cardiology [address] [facility] [address]th [place] [address] [place] [address] Ralph Marx MD from Last 3 Months Surgical History Surgery [...] 02/19/2021, 12/04/2020 Medical Devices Implanted Type Area Senior Packaging Engineer Device Identifier Shelf Expiration Date Model / Serial / Lot [employer] Device Closure Vascade Od5 Fr Femoral Artery [id number] - [id number] Implanted:Qty: 1 on 03/28/2024 by aRlph Marx MD at [facility] Vascular Closure Device [employer] 09/21/2025 [id number]- [id number] / / [id number] [employer] Device Closure Vascade Od5 Fr Femoral Artery [id number] - [id number] Implanted:Qty: 1 on 03/28/2024 by Ralph Marx MD at [facility] Vascular Closure Device [employer] 11/28/2025 [id number]- [id number] / / [id number] [employer] Vascade Mvp 6-12fr Venous Closure [id number] - [id number] Implanted:Qty: 1 on 03/28/2024 by Ralph Marx MD at [facility] Vascular Closure Device [employer] 10/30/2025 [id number] [id number] / / [id number] [employer] Vascade Mvp 6-12fr Venous Closure [id number] - [id number] Implanted:Qty: 1 on 03/28/2024 by Ralph Marx MD at [facility] Vascular Closure Device [employer] 10/30/2025 800-612C-[id number] [id number] / / [id number] Procedures Procedure Name Priority Date/Time Associated [...] 12:0 5 PM CDT us Radha Nicholson PATIENT SCHEDULER ECG ORDERABLES Edited Re sult - Final * NM MPI SPECT (Rest and/or Stress) Multiple Studies (10/23/2024 11:24 AM CDT) Anatomical Region Laterality Modality Body N/A Nuclear Medicine 10/23/2024 7:56 AM CDT Narrative 10/23/2024 6:07 PM CDT [facility] Cardiology [address] [facility] [address] [id number] [address] [facility] [address], [place] [address] P:[phone] P:[phone] MPI Imaging Report Patient Name: YA MIXON C : 1955 Study Date: 10/23/2024 7:56:48 AM Gender: F Tech: [facility] Location: [facility] Provider: GERALDO KULKARNI Height(Cm): 160 BSA: Weight(Kg): 75.3 BMI: 29.41 Order Provider: GERALDO KULKARNI PHYSICIAN: Referring Physician: Dr. Max. HCG [...] persist for several minutes. Electronically Signed By: Geraldo Kulkarni MD 10/23/2024 5:36:15 PM CDT Electronically Signed By: Geraldo Kulkarni MD 10/23/2024 5:36:15 PM CDT Procedure Note Geraldo Kulkarni MD - 10/23/2024 [facility] [address] [facility] [address], [place] [address] [address] [facility] [address], [place] [address] P:[phone] P:[phone] MPI Imaging Report Patient Name: YA MIXON C : 1955 Study Date: 10/23/2024 7:56:48 AM Gender: F Tech: [facility] Location: [facility] Provider: GERALDO KULKARNI Height(Cm): 160 BSA: Weight(Kg): 75.3 BMI: 29.41 Order Provider: GERALDO KULKARNI PHYSICIAN: Referring Physician: Dr. Max. HCG [...] did persist forseveral minutes. Electronically Signed By: Geraldo Kulkarni MD 10/23/2024 5:36:15 PM CDT Electronically Signed By: Geraldo Kulkarni MD 10/23/2024 5:36:15 PM CDT Geraldo Kulkarni MD IMG NM PROCEDURES Final R esult * POCT lipid panel (10/12/2024 11:28 AM CDT) Cholesterol, POC 201 mg/dL HDL, POC 64 mg/dL Triglycerides, POC 87 mg/dL LDL Cholesterol POC 120 mg/dL Chol/HDL Ratio, POC 3.1 Non-HDL Cholesterol, POC 137 mg/dL Cholesterol Total, POC 201 mg/dL Capillary blood 10/12/2024 1 1:28 AM CDT us Geraldo Kulkarni MD POINT OF CARE TEST ORDERA BLES Final Result * [facility] Mobile Cardiac Telemetry Event Monitor (09/24/2024 11:29 AM CDT) Anatomical Region Laterality Modality Electrocardiogra phy 10/27/2024 11:5 9 PM CDT Narrative 11/05/2024 8:49 PM CDT [facility] [place] [place] [address] CARDIAC EVENT MONITOR REPORT Patient Name: YA MIXON C : 1955 (69y 6m) Gender: F Study Date: 10/27/2024 11:59:00 PM Ht(Inch): Wt(Lb): BSA: Tech: Location: [email or web address] Order Provider: RALPH MARX BMI: Ref Provider: RALPH MARX PROCEDURES: Event Report: [facility] MOBILE CARDIAC TELEMETRY EVENT MONITOR [[id number]]. Enrollment Period: 09/28/24-10/27/24. Location: [facility]. INDICATIONS: I47.10 Supraventricular tachycardia, unspecified. FINDINGS: Event Data: Min Rate: 47 BPM Min Rate Timestamp: 2024-10-03 11:34:00 Max Rate: 149 BPM Max Rate Timestamp: 2024-09-29 11:14:00 Mean Rate: 62 BPM Total beats: [id number] SUMMARY: 1 Stable: SVT (>42 Secs), Sinus [...] The PDF can be found in the [facility] Patient chart. Please go to the Cardiology tab, click on the holter or event exam. Scroll to bottom where the ORDER-LEVEL Documents reside and click the blue link to the pdf. Electronically Signed By: Noah Roberson Jr., M.D. 11/05/2024 8:13:14 PM CDT Electronically Signed By: Noah Roberson Jr., M.D. 11/05/2024 8:13:14 PM CDT Procedure Note Noah Roberson MD PhD - 11/05/2024 [facility] Card[facility] [place] [address] CARDIAC EVENT MONITOR REPORT Patient Name: YA MIXON C : 1955 (69y 6m) Gender: F Study Date: 10/27/2024 11:59:00 PM Ht(Inch): Wt(Lb): BSA: Tech: Location: [facility] [[email or web address]] Order Provider: RALPH MARX BMI: Ref Provider: RALPH MARX PROCEDURES: Event Report: [facility] MOBILE CARDIAC TELEMETRY EVENT MONITOR [[id number]]. Enrollment Period: 09/28/24-10/27/24. Location: [facility]. INDICATIONS: I47.10 Supraventricular tachycardia, unspecified. FINDINGS: Event Data: Min Rate: 47 BPM Min Rate Timestamp: 2024-10-03 11:34:00 Max Rate: 149 BPM Max Rate Timestamp: 2024-09-29 11:14:00 Mean Rate: 62 BPM Total beats: [id number] SUMMARY: 1 Stable: SVT (>42 Secs), Sinus [...] The PDF can be found in the Epic Patient chart. Please go to theCardiology tab, [...] [facility] Care Teams Mica Plate Layer Relationship Specialty Start Date End Date Robert Max DO PCP - General Internal Medicine 03/14/24
--- OUTSIDE RECORDS SUMMARY | 2024-12-13 13:44 | XMS_ITS | Continuity of Care Document ---
Author Organization [facility] Address [address] [place] [address] [place] [address] Phone Care Team Providers Care Medical Collections Name Role Phone Kimberli Sorensen Unavailable Unavailable Procedures Procedure Date Office/outpatient Visit, Est Corneal Pachymetry Fundus Photography W/ Report Optic Nerve Topography Optic Nerve Topography Office Consultation Advance Directives Directive Yes / No Effective Date File Name No Information Encounters Encounter Description Practice Location Reason(s) For Visit Diagnoses Date Provider Providers Copied on Encounter Office/outpati ent Visit, Est [facility], [address], [place], [place], [id number], tel:[phone] [facility] No Information [address] [facility] [address], [address], [place], [address], [place]. tel:[phone] Referring Provider: Kimbelri Williamson, [address], [place], [place], [facility]. tel:[phone] [facility], [address], [place], [place], [id number], [place] tel:[phone] [facility] No Information [address], [address], [place], [address], [place]. tel:[phone] Referring Provider: [facility] [address], [place], [address]. tel:[phone] Office Consultation [facility], [address] [facility] [address], [place], [place], [id number], [place] tel:[phone] [facility] No Information [address] [facility] , [address], [place], [address], [place]. tel:[phone] Referring Provider: Tyler Ball, [address] [facility] [address], [place], [address]. tel:[phone] Family History Family Member Type Diagnosis Age [...]
--- OUTSIDE RECORDS SUMMARY | 2024-12-13 13:44 | XMS_ITS | Encounter Summary ---
Author Organization [facility] Address [address] [place] [address] Care Team Providers Care Community Advocate Name Role Phone Robert Max DO Primary Care Provider [phone] Encounter Details Date Type Department Care Team (Late st Contact Info) Description 10/24/2024 Results Follow-Up [facility] Cardiology [address] [place] [address] Jimmy Silva MD [address] [facility] [address] [place] [address] NM MPI SPECT (Rest and/or Stress) Multiple Studies Social History Tobacco Use Types Packs/Day Years Used Date Smoking Tobacco: Former Cigarettes 1 30 0 07/04/1972 - 07/04/2002 Smokeless Tobacco: Never AUDIT-C Answer Date Recorded Q1: How often [...] on file documented as of this encounter Plan of Treatment Not on file documented as of this encounter Visit Diagnoses Not on filedocumented in this encounter Care Teams Community Advocate Relationship Specialty Start Date End Date Robert Max DO PCP - General Internal Medicine 03/14/24 documented as of this encounter
--- OUTSIDE RECORDS SUMMARY | 2024-12-13 13:44 | XMS_ITS | Clinical Summary ---
Author Organization [facility] Address [address] [place] [address] Care Team Providers Care Cloth Mender Name Role Phone Anca Parnell MD Primary Care Provider + Source Comments [facility],non-owned Affiliates and Associated Physician Practices is amultiple site organization consisting of ambulatory clinics and hospital sitesin [place], [place], [place] and [place]. This disclosure is being madepursuant to the Care Everywhere program and may not contain all information available regarding this patient. Last updated 18.[facility] Immunizations Immunization Administration Dates Next Due [...] 2023-2 5 season) 2024 DEPRESSION SCREENING 07/04/2024 INFLUENZA VACCINE (Season Ended) 2025 03/22/20 16 [...] patient's age to complete this topic Insurance [facility] ESSENCE MEDICARE ESSENCE MED[employer]ARE SELF PAY NO INSURANCE Member Subscriber Plan / Payer (Ef fective for All Dates) Name:Hilda Morton Member ID:Not on file Relation to Subscriber:Not on file Name:HILDA MORTON Subscriber ID:Not on file Address: [address] [place], [place] [address] Payer ID:Not on file Group ID:Not on file Type:Self Pay Address: [place], [place] E[employer]ENCE MEDICARE SELF PAY NO INSURANCE Member Subscriber Plan / Payer (Ef fective for All Dates) Name:Hilda Morton Member ID:Not on file Relation to Subscriber:Not on file Name:HILDA MORTON Subscriber ID:Not on file Address: [address] [place] [phone] Payer ID:Not on file Group ID:Not on file Type:Self Pay Address: [place], [place] Care Teams Cloth Mender Relationship Specialty Start Date End Date Anca Parnell MD [address] [place] [address] PCP - General 07/25/18
--- OUTSIDE RECORDS SUMMARY | 2024-12-13 13:44 | XMS_ITS | Clinical Summary ---
Author Organization [facility] Address [address] [place] [address] Care Team Providers Care Welder Apprentice Arc Name Role Phone Robert Max Reid Primary Care Provider Allergies No known active [...] mg Extended Release 24 hour tablet Take 50 mg by mouth 2 times daily. Active omeprazole (PriLOSEC) 40 mg Capsule, Delayed Release(E.C.) Take 40 mg by mouth daily. Active celecoxib (CeleBREX) 200 mg capsule TAKE 1 CAPSULE BY MOUTH TWICE DAILY NEEDED FOR PAIN 10/15/2020 Active Active Problems Problem Noted Date Diagnosed Date Lymphocytosis 08/08/2019 Encounters Date Type Department Care Team Description 10/18/2024 1:00 PM CDT Office Visit [facility] Oncology and Hematology - [place] [address] [place] [address] Kris Wilkins MD Lymphocytosis (Primary Dx) 10/17/2024 Orders Only [facility] Oncology and Hematology [facility] [address] [place] [address] Kris Wilkins MD from Last 3 Months Family History Medical History Relation Name Comments [...] Sign Reading Time Taken Comments Blood Pressure 127/80 10/18/2024 1:07 PM CDT Pulse 55 10/18/2024 1:07 PM CDT Temperature 36.2 C (97.2 F) 10/18/2024 1:07 PM CDT Respiratory Rate 16 10/18/2024 1:07 PM CDT Oxygen Saturation 94% 10/18/2024 1:07 PM CDT Inhaled Oxygen Concentration - - Weight 76.1 kg (167 lb 12.8 oz) 10/18/2024 1:07 PM CDT Height 160 cm (5' 3) 11/23/2021 10:26 AM CDT Body Mass Index 29.72 11/23/2021 10:26 AM CDT Plan of Treatment Upcoming Encounters Date Type Department Care Team (Late st Contact Info) Description 09/10/2025 1:00 PM CDT Office Visit [facility] Oncology and Hematology - [place] [address] [facility] [address] [place] [address] Kris Wilkins MD [address] [facility] [address] [place] [address] Health Maintenance Due Date Last [...] SCREENING 2020 INFLUENZA VACCINE (#1) 2024 03/22/2016 RSV VACCINE (60+ or ) (1 - 1-dose 75+ series) 2030 Procedures Procedure Name Priority Date/Time Associated Diagnosis Comments COMPREHENSIVE METABOLIC PANEL Routine 10/16/2024 8:21 AM CDT from Last 3 Months Results * COMPREHENSIVE METABOLIC PANEL (10/16/2024 8:21 AM CDT) Blood Kris Wilkins MD CHEMISTRY ORDERABLES Final Resu lt from Last 3 Months Insurance Care Teams Welder Apprentice Arc Relationship Specialty Start Date End Date Robert Max DO [address] [facility] [address] [place] [address] PCP - General Internal Medicine 11/23/22
--- OUTSIDE RECORDS SUMMARY | 2024-12-13 13:44 | XMS_ITS | Encounter Summary ---
Author Organization [facility] Address [address] [place] [address] Phone Care Team Providers Care Maturity Checker Name Role Phone Robert Max DO Primary Care Provider +1- [phone] Encounter Details Date Type Department Care Team (Late st Contact Info) Description 11/27/2024 Results Follow-Up [facility] Cardiology [address] [facility] Advanced Medicine 8th [place] [address] [place] [address] Radha Nicholson, SILVESTRE [address] [place] [address] ECG 12 lead Social History Tobacco Use Types Packs/Day Years [...] on filedocumented in this encounter Care Teams Maturity Checker Relationship Specialty Start Date End Date Robert Max DO PCP - General Internal Medicine 03/14/24 documented as of this encounter
[2024-12-17 11:24] LABS: Thyroid Peroxidase Antibodies 72 IU/mL (<9)
== END 2024-12-13 13:09 | disposition home or self-care (01) ==
LOC: ANHGOSHLAB 13:10
PROVIDERS: PCP Internal Medicine; Visit Provider Clinical Nurse Specialist
DX: R79.89 Other specified abnormal findings of blood chemistry (principal); R94.4 Abnormal results of kidney function studies; I47.10 Supraventricular tachycardia, unspecified; R00.2 Palpitations; G25.81 Restless legs syndrome
CPT/HCPCS: 36415; 82607; 82728; 84443; 86376

== ENCOUNTER 2025-01-10 11:15 | Outpatient (CLI) | payer OTHER, SELFPAY ==
--- NOTE | ~2025-01-10 | US_ITS ---
Thyroid ultrasound. Clinical History: Abnormal findings of blood chemistry Findings: Real-time sonography of the thyroid gland was performed. The right lobe measures 4.3 x 2.0 x 1.3 cm. The left lobe measures 3.3 x 1.0 x 1.0 cm. The isthmus is 4 mm in AP diameter. Subcentimeter cystic nodules are present in the right thyroid lobe, largest measuring 3 mm. There is a 3 mm probable cystic lesion at the left lower pole with focal hyperechoic colloid. Impression: Subcentimeter cystic nodules in the thyroid, with benign appearance. No further follow-up required. Reviewed, dictated and finalized at location . Impression: Subcentimeter cystic nodules in the thyroid, with benign appearance. No further follow-up required.
== END 2025-01-10 11:16 | disposition home or self-care (01) ==
PROVIDERS: PCP Internal Medicine; Visit Provider Clinical Nurse Specialist
DX: E04.1 Nontoxic single thyroid nodule (principal); R79.89 Other specified abnormal findings of blood chemistry
CPT/HCPCS: 76536

== ENCOUNTER 2025-01-10 11:26 | Outpatient (CLI) | payer OTHER, SELFPAY ==
--- OUTSIDE RECORDS SUMMARY | 2025-01-10 11:32 | XMS_ITS | Clinical Summary ---
Author Organization [facility] Address [address] [place] [address] Care Team Providers Care Field Education Coordinator Name Role Phone Robert Max Reid Primary [...] Description 10/18/2024 1:00 PM CDT Office Visit [facility] Oncology and Hematology - [place] [address] [place] [address] Kris Wilkins MD Lymphocytosis (Primary Dx) 10/17/2024 Orders Only [facility] Oncology and Hematology [facility] [address] [place] [address] Kris Wilkins MD from Last [...] Description 09/10/2025 1:00 PM CDT Office Visit [facility] and [facility]ematology - [place] [address] [facility] [address] [place] [address] Kris Wilkins MD [address] [facility] [address] [place] [address] Health Maintenance Due Date Last [...] 2005 OSTEOPOROSIS SCREENING 2020 INFLUENZA VACCINE (#1) 2025 03/22/2016 RSV VACCINE (60+ or ) (1 - 1-dose 75+ series) 2030 Procedures Procedure Name Priority Date/Time Associated Diagnosis Comments COMPREHENSIVE METABOLIC PANEL Routine 10/16/2024 8:21 AM CDT from Last 3 Months Results * COMPREHENSIVE METABOLIC PANEL (10/16/2024 8:21 AM CDT) Blood Kris Wilkins MD CHEMISTRY ORDERABLES Final Resu lt from Last 3 Months Insurance Care Teams Field Education Coordinator Relationship Specialty Start Date End Date Robert Max DO [address] [facility] [address] [place] [address] PCP - General Internal Medicine 11/23/22
--- OUTSIDE RECORDS SUMMARY | 2025-01-10 11:32 | XMS_ITS | Encounter Summary ---
Author Organization [facility] Address [address] [place] [address] Phone Care Team Providers Care Brusher Hand Name Role Phone Robert Max DO Primary Care Provider +1- [phone] Encounter Details Date Type Department Care Team (Late st Contact Info) Description 11/27/2024 Results Follow-Up [facility] Cardiology [address] [facility] Advanced Medicine 8th [place] [address] [place] [address] Radha Nicholson, SILVESTRE [address] [facility] [address] [place] [address] ECG 12 lead Social History Tobacco Use [...] on filedocumented in this encounter Care Teams Brusher Hand Relationship Specialty Start Date End Date Robert Max DO PCP - General Internal Medicine 03/14/24 documented as of this encounter
--- OUTSIDE RECORDS SUMMARY | 2025-01-10 11:32 | XMS_ITS ---
Author Organization [facility] [place] ([address]) Address [address] [place] [address] Care Team Providers Care Crew Mess Attendant Name Role Phone Robert Max Primary Care Provider Unavailab Jason Smith Unavailable [phone] Kristian Doll Unavailable [phone] REASON FOR VISIT SCIT (Aeroallergen) Encounters Encounter Location Date Provider Diagnosis [facility] [address] [place] [address] 12/20/2024 Kristian Doll Plan Of Treatment Next Appt Details Provider Name:Kristian Doll , 01/15/2025 11:00:00 AM, [address], [place], [address], Provider Name:Kristian Doll , 01/29/2025 11:00:00 AM, [address], [place], [address], Provider Name:Niurka tinsley, 03/25/2025 12:30:00 PM, [address], [place], [address], Progress Notes * Edwina MIXON:1955 (69 yo F)Acc No.[id number]:12/20/2024 SCIT-Aeroallergen Patient: Hilda CRUMP Provider: Jeanie Doll MD :1955 A ge:69 Y S ex:Female Date:12/20/2024 Address:[address] [place], [place] [address] Pcp:Robert Max Subjective: * Chief Complaints: * 1 . SCIT (Aeroallergen). * Medical History: Objective: * Vitals: Assessment: Plan: * Treatment: * Billing Information: * Visit Code: * Procedure Codes: * Electronic signature of Sally Doll MD, FAAAAI on 01/10/2025 at 11:32 AM CDT Sign off status: Pending * Provider: Jeanie Doll MD Date: 12/20/2024 Generated for Leatha velasquez/Boy/Yolandaitting on: 01/10/2025 11:32 AM CDT
--- OUTSIDE RECORDS SUMMARY | 2025-01-10 11:32 | XMS_ITS | Patient Health Record ---
Author Organization [facility] [place] ([address]) Address [address] [place] [address] Care Team Providers Care Store Management Trainee Name Role Phone Robert Max Primary Care Provider Unavailab Jason Smith Unavailable [phone] Kristian Doll Unavailable [phone] Niurka Navarro Unavailable [phone] Allergies No Known Allergies Reason For Referral Reason Z91.09 Referring Provider First Name Robert Referring Provider Last Name Winter Referring Provider Speciality Internal M edicine Referred Organization [facility] Referred Provider Jason Benavides Referred Address [address] [place], [place],[address], Referred Provider Specialty Allergy/Immu nology Referral Priority Routine Medications Medication SIG (Take, Route, Frequency, Duration) Notes Start Date End Date Status Atorvastatin Calcium 10 MG 1 tab(s) orally once a day Active EpiPen 2-Johan 0.3 MG/0.3ML as directed intramuscularly once; Duration: 30 days Active Auvi-Q 0.3 MG/0.3ML as directed intramuscularly once; Duration: 1 dose(s) Active NASAL WASHES N/A DIRECTED INTRANASALLY NEEDED; Duration: 30 *Please review for potential replacement for e-prescription and drug interaction check* Active METOPROLOL 25 mg 1 tab(s) orally 2 times a day Active Triamcinolone Acetonide 0.1 % 1 doris applied topically 3 times a day; Duration: 7 day(s) Active Triamcinolone Acetonide 0.1 % 1 doris applied topically 3 times a day; Duration: 7 days Active PREVACID 30 mg 1 cap(s) orally once a day Active CELECOXIB 200 mg Act natan Triamcinolone Acetonide 0.1 % APPLY OINTMENT TOPICALLY THREE TIMES DAILY FOR 7 DAYS; Duration: 7 Active COLACE sodium 100 mg 1 cap(s) orally 2 times a day Active Colace 100 MG 1 cap(s) orally 2 times a day Not-Taking ATORVASTATIN 10 mg 1 tab(s) orally once a day Active Azelastine HCl 137 MCG/SPRAY 2 sprays in each nostril Nasally Twice a day; Duration: 30 days Active Flonase Allergy Relief 50 MCG/ACT 2 spray(s) in each nostril twice a day; Duration: 30 day(s) Active Singulair 10 MG 1 tab(s) orally once a day Active FLONASE 50 mcg/inh 2 spray(s) in each nostril twice a day; Duration: 30 days Active SINGULAIR 10 mg 1 tab(s) orally once a day Active Cetirizine HCl 10 MG 1 tablet Orally Once a day; Duration: 30 days Active AUVI -Q 0.3 mg as directed intramuscularly once; Duration: 1 dose(s) Active Nasal Washes N/A as directed intranasally Active Azelastine HCl 137 MCG/SPRAY 2 sprays in each nostril Nasally Twice a day; Duration: 30 days Active Metoprolol Tartrate 25 MG 1 tab(s) orally 2 times a day Active Triamcinolone Acetonide 0.1 % 1 application Externally Twice a day; Duration: 30 days Active Prevacid 30 MG 1 cap(s) orally once a day Active Celecoxib 200 MG Act natan Tatiana Allergy 180 MG 1 tab(s) orally once a day Not-Taking SIT (TRADITIONAL) variable per schedule SC per schedule; Duration: to be determined Active Immunizations Vaccine Route Administration Date Status [...] Status W/U Status Risk Notes Problem Hyperlipidemia (74639577) Hyperlipidemia, unspecified (E78.5) Active confirmed Problem Chronic allergic conjunctivitis (59472018) Other chronic allergic conjunctivitis (H10.45) Active confirmed Problem Allergic rhinitis caused by pollen (disorder) (34096104) Allergic rhinitis due to pollen (J30.1) Active confirmed Problem Allergic rhinitis caused by animal hair and dander (193320017195587) Allergic rhinitis due to animal (cat) (dog) hair and dander (J30.81) Active confirmed Problem Allergic rhinitis (27385745) Other allergic rhinitis (J30.89) Active confirmed Problem Gastro-esophageal reflux disease without esophagitis (083913547) Gastro-esophageal reflux disease without esophagitis (K21.9) Active confirmed Problem Palpitations (74353280) Palpitations (R00.2) Active confirmed Problem Allergic rhinitis caused by pollen (disorder) (82532596) Allergic rhinitis due to pollen (J30.1) Active confirmed Problem Allergic rhinitis caused by animal hair and dander (881932530540108) Allergic rhinitis due to animal (cat) (dog) hair and dander (J30.81) Active confirmed Problem Allergic rhinitis (31581049) Other allergic rhinitis (J30.89) Active confirmed Problem Chronic allergic conjunctivitis (00619943) Other chronic allergic conjunctivitis (H10.45) Active confirmed Problem Rash and other nonspecific skin eruption (R21) Active confirmed Problem Chronic sinusitis (72818425) Chronic sinusitis, unspecified (J32.9) Active confirmed Vital Signs Oximetry 99 % 09/03/2024 Blood pressure diastolic 88 mm Hg 09/03/2024 Height 63 in 09/03/2024 Blood pressure systolic 134 mm Hg 09/03/2024 Weight 172.6 lbs 09/03/2024 BMI 30.57 kg/m2 09/03/2024 Encounters Encounter Location Date Provider Diagnosis [facility] [address] [address] 02/02/2024 Kristian Doll Allergic rhinitis du e to pollen J30.1 ; Other allergic rhinitis J30.89 ; Allergic rhinitis due to animal (cat) (dog) hair and dander J30.81 and Other chronic allergic conjunctivitis H10.45 [facility] [address] [address] 03/12/2024 Jason Bessylashanda Allergic rhinitis du e to pollen J30.1 ; Allergic rhinitis due to animal (cat) (dog) hair and dander J30.81 ; Other allergic rhinitis J30.89 ; Other chronic allergic conjunctivitis H10.45 ; Chronic sinusitis, unspecified J32.9 ; Palpitations R00.2 and Rash and other nonspecific skin eruption R21 [facility] [address] [facility] [address] [address] 04/09/2024 Kristian Doll Allergic rhinitis du e to pollen J30.1 ; Other allergic rhinitis J30.89 ; Allergic rhinitis due to animal (cat) (dog) hair and dander J30.81 and Other chronic allergic conjunctivitis H10.45 [facility] [address] [place] [address] [facility] [address] [address] 05/07/2024 Kristian Doll Allergic rhinitis du e to pollen J30.1 ; Other allergic rhinitis J30.89 ; Allergic rhinitis due to animal (cat) (dog) hair and dander J30.81 and Other chronic allergic conjunctivitis H10.45 [facility] [address] [place] [address] [facility] [address] [address] 06/18/2024 Kristian Doll Allergic rhinitis du e to pollen J30.1 ; Other allergic rhinitis J30.89 ; Allergic rhinitis due to animal (cat) (dog) hair and dander J30.81 and Other chronic allergic conjunctivitis H10.45 [facility] [address] [place] [address] [facility] [address] [address] 07/30/2024 Kristian Doll Allergic rhinitis du e to pollen J30.1 ; Other allergic rhinitis J30.89 ; Allergic rhinitis due to animal (cat) (dog) hair and dander J30.81 and Other chronic allergic conjunctivitis H10.45 [facility] [address] [place] [address] [facility] [address] [address] 08/06/2024 Kristian Doll Allergic rhinitis du e to pollen J30.1 ; Other allergic rhinitis J30.89 ; Allergic rhinitis due to animal (cat) (dog) hair and dander J30.81 and Other chronic allergic conjunctivitis H10.45 [facility] [address] [place], [place] [address] [address] [address] 08/14/2024 Kristian Lavon Allergic rhinitis du e to pollen J30.1 ; Other allergic rhinitis J30.89 ; Allergic rhinitis due to animal (cat) (dog) hair and dander J30.81 and Other chronic allergic conjunctivitis H10.45 [facility] [address] [place] [address] 09/03/2024 Jason Benavidse Allergic rhinitis du e to pollen J30.1 ; Allergic rhinitis due to animal (cat) (dog) hair and dander J30.81 ; Other allergic rhinitis J30.89 ; Other chronic allergic conjunctivitis H10.45 ; Chronic sinusitis, unspecified J32.9 ; Palpitations R00.2 and Rash and other nonspecific skin eruption R21 [facility] [address] [place] [address] 10/01/2024 Kristian Lavon Allergic rhinitis du e to pollen J30.1 ; Other allergic rhinitis J30.89 ; Allergic rhinitis due to animal (cat) (dog) hair and dander J30.81 and Other chronic allergic conjunctivitis H10.45 [facility] [address] [place] [address] 10/30/2024 Kristian Lavon Allergic rhinitis du e to pollen J30.1 ; Other allergic rhinitis J30.89 ; Allergic rhinitis due to animal (cat) (dog) hair and dander J30.81 and Other chronic allergic conjunctivitis H10.45 [facility] [address] [place] [address] 11/27/2024 Kristian Lavon Allergic rhinitis du e to pollen J30.1 ; Other allergic rhinitis J30.89 ; Allergic rhinitis due to animal (cat) (dog) hair and dander J30.81 and Other chronic allergic conjunctivitis H10.45 [facility] [address] [place] [address] 01/01/2025 Kristian Lavon Allergic rhinitis du e to pollen J30.1 ; Other allergic rhinitis J30.89 ; Allergic rhinitis due to animal (cat) (dog) hair and dander J30.81 and Other chronic allergic conjunctivitis H10.[address] [place] [address] 01/02/2025 Niurka Navarro Assessments Encounter Date Diagnosis (ICD Code) Assessment Notes Treatment Notes Treatment Clinical Notes Section Notes 02/02/2024 Allergic rhinitis due to pollen (ICD-10 [...] rhinitis due to pollen (ICD-10 - J30.1) 01/01/2025 Allergic rhinitis due to pollen (ICD-10 - J30.1) 11/27/2024 Other allergic rhinitis (ICD-10 - J30.89) 01/01/2025 Other allergic rhinitis (ICD-10 - J30.89) 10/30/2024 Other allergic rhinitis (ICD-10 - J30.89) 10/01/2024 Other allergic rhinitis (ICD-10 - J30.89) 09/03/2024 [...] 02/02/2024 Other allergic rhinitis (ICD-10 - J30.89) 02/02/2024 Allergic rhinitis due to animal (cat) [...] (dog) hair and dander (ICD-10 - J30.81) 01/01/2025 Allergic rhinitis due to animal (cat) (dog) hair and dander (ICD-10 - J30.81) 01/01/2025 Other chronic allergic conjunctivitis (ICD-10 - H10.45) 11/27/2024 Other chronic allergic conjunctivitis (ICD-10 - H10.45) 10/30/2024 Other chronic allergic conjunctivitis (ICD-10 - H10.45) 09/03/2024 Chronic sinusitis, unspecified (ICD-10 - J32.9) Recurrent infections, typically 1-2 yearly with some years up to 3-4, last infection Fall 2020. None sicne then - Previosuly discussed PID workup, though does follow with Spine Supervisor. If repeat infection occurs would check. - [...] agreeable but wants to speak with her Spine Supervisor firist. If repeat infection occurs would check. [...] Name:Kristian Doll , 01/15/2025 11:00:00 AM, [address] [facility], [address], [address], Provider Name:Kristian Doll , 01/29/2025 11:00:00 AM, [address] [facility], [address], [address], Provider Name:Niurka tinsley, 03/25/2025 12:30:00 PM, [address] [facility], [address], [address], Insurance Providers Payer Name Payer Address Payer Phone Subscriber Number Group Number Insured Name Patient Relationship to Insured Coverage Start Date Coverage End Date [employer] [address] [address] [place] [phone] [id number] Hilda Mixon Self - patient is [...]
--- OUTSIDE RECORDS SUMMARY | 2025-01-10 11:33 | XMS_ITS | Referral Summary ---
Author Organization [facility] [address] [place] [address] 162 [address] [facility] [address] [place] [address] Care Team Providers Care Room Service Associate Name Role Phone Robert Max DO Primary Care Provider +1- [phone] Encounters Date Type Department Care Team Description 11/27/2024 Results Follow-Up [facility] [address] [place] [address] Medicine 8th [place] [address] [place] [address] Radha Nicholson NP ECG 12 lead 11/27/2024 1:15 PM CDT Procedure visit [facility] [address] [place] [address] 162 [address] [place] [address] SVT (supraventricular tachycardia); Palpitations; Encounter for monitoring flecainide therapy 11/23/2024 Orders Only [facility] [address] [place] [address] 8th [place] [address] [place] [address] Radha Nicholson NP SVT (supraventricular tachycardia) (Primary Dx); Palpitations; Encounter for monitoring flecainide therapy 11/23/2024 Orders Only [facility] [address] [place] [address] Medicine 8th [place] [address] [place] [address] Radha Nicholson NP PSVT (paroxysmal supraventricular tachycardia) (Primary Dx); Encounter for monitoring flecainide therapy 10/24/2024 Results Follow-Up [facility] [address] [place] [address] 162 [address] [place] [address] Geraldo Kulkarni MD NM MPI SPECT (Rest and/or Stress) Multiple Studies 10/23/2024 10:15 AM CDT Ancillary Procedure [facility] Medical [facility] [address] [place] [address] PSVT (paroxysmal supraventricular tachycardia); First degree AV block; RBBB; Chest heaviness 10/12/2024 11:15 AM CDT Office Visit [facility] Medical [facility] at [address] [place] [address] Geraldo Kulkarni MD PSVT (paroxysmal supraventricular tachycardia) (Primary Dx); Supraventricular tachycardia; PVC (premature ventricular contraction); Mixed hyperlipidemia; First degree AV block; Palpitations; RBBB; Chest heaviness from Last 3 Months Allergies No known [...] (40 mg total) by mouth every morning Active triamcinolone (KENALOG) 0.1 % ointmentIndicat ions:Skin [...] mg total) by mouth daily 4 Active flecainide (TAMBOCOR) 50 mg tablet Take 1 tablet (50 mg total) by mouth 2 (two) times a day 60 tablet 5 5 025 Active metoprolol tartrate (LOPRESSOR) 50 mg immediate release tablet Take 1 tablet (50 mg total) by mouth 2 (two) times a day 180 tablet 3 5 Active metoprolol tartrate (LOPRESSOR) 25 mg immediate release tablet Take 1 tablet (25 mg total) by mouth 2 (two) times a day 180 tablet 3 5 025 Discontin ued(Reord er) Active Problems Problem Noted Date Diagnosed Date Chest heaviness 10/12/2024 PVC (premature ventricular contraction) 05/08/20 24 Assessment & Plan (08/02/2024 1:51 PM SCRUFF WORKER): -Continue metoprolol for PVCs Assessment & Plan (05/08/2024 4:06 PM SCRUFF WORKER): - Continue metoprolol for PVCs - If palpitations increase, can consider 3 day Holter SVT (supraventricular tachycardia) 03/28/2024 Assessment & Plan (08/03/2024 8:50 AM SCRUFF WORKER): Atrial tachycardia - Multiple atrial tachycardias originating [...] BID Assessment & Plan (05/08/2024 4:06 PM SCRUFF WORKER): Atrial tachycardia - Multiple atrial tachycardias originating [...] on file Medical Devices Implanted Type Area Marketing Teacher Device Identifier Shelf Expiration Date Model / Serial / Lot Cardi[employer]isense [employer] Device Closure Vascade Od5 Fr Femoral Artery [id number] - [id number] Implanted:Qty: 1 on 03/28/2024 by Ralph Mora MD at [facility] Vascular Closure Device [employer] 09/21/2025 700-500DX- 05U / / [id number] [employer] Device Closure Vascade Od5 Fr Femoral Artery [id number] - [id number] Implanted:Qty: 1 on 03/28/2024 by Ralph Mora MD at [facility] Vascular Closure Device [employer] 11/28/2025 700-500DX- 05U / / [id number] [employer] Vascade Mvp 6-12fr Venous Closure [id number] - [id number] Implanted:Qty: 1 on 03/28/2024 by Ralph Moar MD at [facility] Vascular Closure Device [employer] 10/30/2025 800-612C-1 0U / / [id number] [employer] Vascade Mvp 6-12fr Venous Closure [id number] - [id number] Implanted:Qty: 1 on 03/28/2024 by Ralph Mora MD at [facility] Vascular Closure Device [employer] 10/30/2025 800-612C-1 0U / / [id number] Procedures Procedure Name Priority Date/Time Associated [...] 10/12/2024 11:2 8 AM CDT Mixed hyperlipidemia from Last 3 Months Results * ECG 12 lead (11/27/2024 12:05 PM CDT) 11/27/2024 12:0 5 PM CDT us Radha Marshall Bharat SALES DEVELOPMENT REPRESENTATIVE ECG ORDERABLES Edited Re sult - Final * NM MPI SPECT (Rest and/or Stress) Multiple Studies (10/23/2024 11:24 AM CDT) Anatomical Region Laterality Modality Body N/A Nuclear Medicine 10/23/2024 7:56 AM CDT Narrative 10/23/2024 6:07 PM CDT [facility] Cardiology [address] [facility] [address], [place] [address] [address] [facility] [address], [place] [address] P:[phone] P:[phone] MPI Imaging Report Patient Name: HILDA MIXON C : 1955 Study Date: 10/23/2024 7:56:48 AM Gender: F Tech: [facility] Location: [facility] Provider: GERALDO KULKARNI Height(Cm): 160 BSA: [...] Procedure Note Geraldo Kulkarni MD - 10/23/2024 [facility] Cardiology [address] [facility] [address] [address] [address] [facility] [address], [place], [place] [address] P:[phone] P:[phone] MPI Imaging Report Patient Name: HILDA MIXON C : 1955 Study Date: 10/23/2024 7:56:48 AM Gender: F Tech: [facility] Location: [place] Ref Provider: GERALDO KULKARNI Height(Cm): 160 BSA: Weight(Kg): [...] Capillary blood 10/12/2024 1 1:28 AM CDT Geraldo Kulkarni MD POINT OF CARE TEST ORDERA BLES Final Result from Last 3 Months Insurance [facility] Member Subscriber Plan / Payer ( fective 2021-Present) Name:Hilda Mixon Relation to Subscriber:Self Name:ArlynemiliHilda Payer ID:[id number] (NAIC) Type:MEDICARE RISK OTHER Address: [place] [id number] Care Teams Room Service Associate Relationship Specialty Start Date End Date Robert Max DO PCP - General Internal Medicine 03/14/24
--- OUTSIDE RECORDS SUMMARY | 2025-01-10 11:33 | XMS_ITS | Clinical Summary ---
Author Organization [facility] Address [address] [place] [address] Care Team Providers Care Shotgun Shell Assembly Machine Adjuster Name Role Phone Anca Parnell MD Primary Care Provider + Source Comments [facility],non-owned Affiliates and Associated Physician Practices is amultiple site organization consisting of ambulatory clinics and hospital sitesin [place], [place], [place] and [place]. This disclosure is being madepursuant to the Care Everywhere program and may not contain all information available regarding this patient. Last updated 18.[facility] Immunizations Immunization Administration Dates Next [...] patient's age to complete this topic Insurance [facility] E[employer]ENCE MEDICARE ESSENCE MEDICARE SELF PAY NO INSURANCE Member Subscriber Plan / Payer (Ef fective for All Dates) Name:Hilda Morton Member ID:Not on file Relation to Subscriber:Not on file Name:HILDA MORTON Subscriber ID:Not on file Address: [address] [place], [place] [address] Payer ID:Not on file Group ID:Not on file Type:Self Pay Address: [place], [place] ESSENCE MEDICARE SELF PAY NO INSURANCE Member Subscriber Plan / Payer (Ef fective for All Dates) Name:Hilda Morton Member ID:Not on file Relation to Subscriber:Not on file Name:HILDA MORTON Subscriber ID:Not on file Address: [address] [place] [id number] Payer ID:Not on file Group ID:Not on file Type:Self Pay Address: [place], [place] Care Teams Shotgun Shell Assembly Machine Adjuster Relationship Specialty Start Date End Date Anca Parnell MD [address] [place] [address] PCP - General 07/25/18
--- OUTSIDE RECORDS SUMMARY | 2025-01-10 11:33 | XMS_ITS | Clinical Summary ---
Author Organization [facility] [address] [place] [address] Care Team Providers Care Academic Services Professional Name Role Phone Robert Max DO Primary Care Provider +1- [phone] Allergies No known active allergies Medications montelukast [...] 24 Assessment & Plan (08/02/2024 1:51 PM ABSTRACT MANAGER): -Continue metoprolol for PVCs Assessment & Plan (05/08/2024 4:06 PM ABSTRACT MANAGER): - Continue metoprolol for PVCs - If palpitations increase, can consider 3 day Holter SVT (supraventricular tachycardia) 03/28/2024 Assessment & Plan (08/03/2024 8:50 AM ABSTRACT MANAGER): Atrial tachycardia - Multiple atrial tachycardias [...] BID Assessment & Plan (05/08/2024 4:06 PM ABSTRACT MANAGER): Atrial tachycardia - Multiple atrial tachycardias [...] Description 11/27/2024 1:15 PM CDT Procedure visit [facility] [address] [place] [address] [place] [phone] SVT (supraventricular tachycardia); Palpitations; Encounter for monitoring flecainide therapy 11/27/2024 Results Follow-Up [facility] Cardiology [address] [place] [address] 8th [place] [address] [place] [address] Radha Nicholson, SILVESTRE ECG 12 lead 11/23/2024 Orders Only [address] 8th [place] [address] [place] [address] Radha Nicholson, SILVESTRE SVT (supraventricular tachycardia) (Primary Dx); Palpitations; Encounter for monitoring flecainide therapy 11/23/2024 Orders Only [address] 8th [place] [address] [place] [address] Radha Nicholson, SILVESTRE PSVT (paroxysmal supraventricular tachycardia) (Primary Dx); Encounter for monitoring flecainide therapy 10/24/2024 Results Follow-Up [facility] [address] [place] [address] [place] [phone] Geraldo Kulkarni MD NM MPI SPECT (Rest and/or Stress) Multiple Studies 10/23/2024 10:15 AM CDT Ancillary Procedure [facility] [address] [place] [address] [place] [address] PSVT (paroxysmal supraventricular tachycardia); First degree AV block; RBBB; Chest heaviness 10/12/2024 11:15 AM CDT Office Visit [facility]iology at [address] [place] [address] Geraldo Kulkarni MD PSVT (paroxysmal supraventricular tachycardia) (Primary Dx); Supraventricular tachycardia; PVC (premature ventricular contraction); Mixed hyperlipidemia; First degree AV block; Palpitations; RBBB; Chest heaviness from Last 3 Months Surgical History Surgery [...] 04/03/2022, 10/29/2021, Additional history exists Influenza Vaccine (#1) 2025 , 04/20/2022, 03/27/2021, Additional history exists Fall Risk Assessment 03/28/2025 03/28/2024 Zoster Vaccine Completed 02/19/2021, 12/04/2020 Medical Devices Implanted Type Area Teacher Ballet Device Identifier Shelf Expiration Date Model / Serial / Lot [employer] Device Closure Vascade Od5 Fr Femoral Artery [id number] - [id number] Implanted:Qty: 1 on 03/28/2024 by Ralph Mora MD at [facility] Vascular Closure Device [employer] 09/21/2025 700-500DX- 05U / / [id number] [employer] Device Closure Vascade Od5 Fr Femoral Artery [id number] - [id number] Implanted:Qty: 1 on 03/28/2024 by Ralph Mora MD at [facility] Vascular Closure Device [employer] 11/28/2025 700-500DX- 05U / / [id number] [employer] Vascade Mvp 6-12fr Venous Closure [id number] - [id number] Implanted:Qty: 1 on 03/28/2024 by Ralph Mora MD at [facility] Vascular Closure Device [employer] 10/30/2025 800-612C-1 0U / / [id number] [employer] Vascade Mvp 6-12fr Venous Closure [id number] - [id number] Implanted:Qty: 1 on 03/28/2024 by Ralph Mora MD at [facility] Vascular Closure Device [employer] 10/30/2025 800-612C-1 0U / / [id number] Procedures Procedure Name Priority Date/Time Associated [...] 12:0 5 PM CDT us Radha Nicholson ETIOLOGIST ECG ORDERABLES Edited Re sult - Final * NM MPI SPECT (Rest and/or Stress) Multiple Studies (10/23/2024 11:24 AM CDT) Anatomical Region Laterality Modality Body N/A Nuclear Medicine 10/23/2024 7:56 AM CDT Narrative 10/23/2024 6:07 PM CDT [facility] Cardiology [address], [place] [address] [address] [facility] [address], [place] [address] P:[phone] P:[phone] MPI Imaging Report Patient Name: YA MIXON C : 1955 Study Date: 10/23/2024 7:56:48 AM Gender: F Tech: [facility] Location: [facility] Provider: GERALDO KULKARNI Height(Cm): 160 BSA: [...] Procedure Note Geraldo Kulkarni MD - 10/23/2024 [facility] Medical Group Cardiology [address] [facility] [address] [id number] [address] [facility] [address], [place], [place] [address] P:[phone] P:[phone] MPI Imaging Report Patient Name: YA MIXON C : 1955 Study Date: 10/23/2024 7:56:48 AM Gender: F Tech: [facility] Location: [facility] Provider: GERALDO KULKARNI Height(Cm): 160 BSA: Weight(Kg): 75.3 BMI: 29.41 Order Provider: GERALDO KULKARNI PHYSICIAN: Referring Physician: Dr. Max. HCG Physician: Jonah Kulkarni M.D. Interpreting Physician: Jonah Kulkarni M.D. Stress Supervision: Jonah Ricardo, M.D. PROCEDURES: Pharmacologic SPECT Report: Myocardial perfusion [...] Final Result from Last 3 Months Insurance [facility] Care Teams Academic Services Professional Relationship Specialty Start Date End Date Robert Max DO PCP - General Internal Medicine 03/14/24
[2025-01-10 19:28] LABS: Anion Gap 5 mmol/L (4-12); Blood Urea Nitrogen 11 mg/dL (7-17); Calcium 9.3 mg/dL (8.4-10.2); Carbon Dioxide 28 mmol/L (22-30); Chloride 96 mmol/L (98-107); Estimated Glomerular Filt Rate > 60; Glucose 109 mg/dL (65-110); Potassium 4.6 mmol/L (3.4-5.0); Sodium 129 mmol/L (137-145)
== END 2025-01-10 11:27 | disposition home or self-care (01) ==
LOC: ANHGOSHLAB 11:27
PROVIDERS: PCP Internal Medicine; Visit Provider Clinical Nurse Specialist
DX: R94.4 Abnormal results of kidney function studies (principal)
CPT/HCPCS: 36415; 80048

== ENCOUNTER 2025-01-16 11:10 | Outpatient (CLI) | payer OTHER, SELFPAY ==
[2025-01-16 18:52] LABS: Anion Gap 5 mmol/L (4-12); Blood Urea Nitrogen 10 mg/dL (7-17); Calcium 9.5 mg/dL (8.4-10.2); Carbon Dioxide 29 mmol/L (22-30); Chloride 99 mmol/L (98-107); Estimated Glomerular Filt Rate 60; Glucose 99 mg/dL (65-110); Potassium 4.4 mmol/L (3.4-5.0); Sodium 133 mmol/L (137-145)
== END 2025-01-16 11:11 | disposition home or self-care (01) ==
LOC: ANHGOSHLAB 11:11
PROVIDERS: PCP Internal Medicine; Visit Provider Clinical Nurse Specialist
DX: R94.4 Abnormal results of kidney function studies (principal)
CPT/HCPCS: 36415; 80048

== ENCOUNTER 2025-04-04 15:52 | Outpatient (CLI) | payer OTHER, SELFPAY ==
--- OUTSIDE RECORDS SUMMARY | 2007-08-29 11:03 | XMS_ITS | Continuity of Care Document ---
Author Organization [facility] Address [id number] [place] [address] [place] [address] Phone Care Team Providers Care Daub Color Mixer Name Role Phone Kimberli Sorensen Unavailable Unavailable Procedures Procedure Date Office/outpatient Visit, Est Corneal Pachymetry Fundus Photography W/ Report Optic Nerve Topography Optic Nerve Topography Office Consultation Advance Directives Directive Yes / No Effective Date File Name No Information Encounters Encounter Description Practice Location Reason(s) For Visit Diagnoses Date Provider Providers Copied on Encounter Office/outpati ent Visit, Est [facility], [address], [place], [place], [id number], tel:[phone] [facility] No Information [address] [facility] [address], [address], [place], [address], [place]. tel:[phone] Referring Provider: Kimberli Williamson, [address], [place], [place], [facility]. tel:[phone] [facility], [address], [place], [place], [id number], [place] tel:[phone] [facility] No Information [address], [address], [place], [address], [place]. tel:[phone] Referring Provider: [facility] [address], [place], [address]. tel:[phone] Office Consultation [facility], [address] [facility] [address], [place], [place], [id number], [place] tel:[phone] [facility] No Information [address] [facility] , [address], [place], [address], [place]. tel:[phone] Referring Provider: Tyler Ball, [address], [place], [address]. tel:[phone] Family History Family Member Type Diagnosis Age At Onset No Information Payers Payer name Insurance type Covered republican ID Authoriza tion(s) No Information Social History Type Description Quantity Date Captured Comments Sex Female Smoking Status No Information Chief Complaint And Reason For Visit No Information Reason For Referral Reason For Referral No Information History Of Present Illness Encounter Date Complaint History Of Prese nt Illness No Information Functional Status Date Functional Assessmen t No Information Instructions Date Instruction Additional Infor mation No Information Assessments Type Assessment Date No Information Patient Care Teams Name Effective Dates (start - stop) Status Members No Information
--- NOTE | ~2025-04-04 | MM_ITS ---
EXAMINATION: MM screening [facility] BI w gissel HISTORY: Screening TECHNIQUE: Craniocaudal and mediolateral oblique 3-D tomosynthesis images were obtained and synthetic 2-D images were generated. CAD analysis was submitted and interpreted. COMPARISON: Comparison to multiple prior studies sequentially, with oldest reviewed study dated 05/24/2018. BREAST PARENCHYMAL COMPOSITION: Not dense: There are scattered areas of fibroglandular density. FINDINGS: There is no evidence of suspicious mass, calcification, or architectural distortion to suggest malignancy in either breast. There has been no suspicious interval change. IMPRESSION: 1. No mammographic evidence of malignancy. 2. Recommend routine screening mammography in one year. BI-RADS Category 1: Negative Reviewed, dictated and finalized at location B.
--- OUTSIDE RECORDS SUMMARY | 2025-04-04 15:55 | XMS_ITS | Encounter Summary ---
Author Organization [facility] Address [address] [place] [address] Care Team Providers Care Nutrition Club Ambassador Name Role Phone Robert Max DO Primary Care Provider Encounter Details Date Type Department Care Team (Late st Contact Info) Description 04/02/2025 External Device Data [facility] ABSTRACTION Provider, Abstract NO ADDRESS ON FILE Social History Tobacco Use Types Packs/Day Years Used Date Smoking Tobacco: Former Cigarettes 1 30 0 10/16/1969 - 10/17/1999 Smokeless Tobacco: Never Alcohol Use Standard Drinks/Week Comments Yes 1 (1 standard drink = 0.6 oz pur e alcohol) Comments No Sex and Gender Information Value Date Recorded Sex Assigned at Not on file Legal Sex Female 9:37 PM CDT Gender Identity Not on file Sexual Orientation Not on file documented as of this encounter Plan of Treatment Upcoming Encounters Date Type Department Care Team (Late st Contact Info) Description 09/10/2025 1:00 PM CDT Office Visit [facility] Oncology and Hematology - [place] [address] [facility] [address] [place] [address] Kris Wilkins MD [address] [facility] [address] [place] [address] documented as of this encounter Visit Diagnoses Not on filedocumented in this encounter Care Teams Nutrition Club Ambassador Relationship Specialty Start Date End Date Robert Max DO [address] [facility] [address] [place] [address] PCP - General Internal Medicine 11/23/22 documented as of this encounter
--- OUTSIDE RECORDS SUMMARY | 2025-04-04 15:55 | XMS_ITS | Clinical Summary ---
Author Organization [facility] Address [address] [place] [address] Care Team Providers Care Gas Mask Inspector Name Role Phone MyrnaRobert silverman Reid PRATHER Primary Care Provider Allergies No known active [...] Encounters Date Type Department Care Team Description 04/02/2025 External Device Data [facility] ABSTRACTION Provider, Abstract 03/12/2025 External Device Data [facility] ABSTRACTION Provider, Abstract 02/06/2025 External Device Data [facility] ABSTRACTION Provider, Abstract 01/16/2025 External Device Data [facility] ABSTRACTION Provider, Abstract from Last 3 Months Family History Medical [...] Description 09/10/2025 1:00 PM CDT Office Visit [facility] Oncology and Hematology - [place] [address] [facility] [address] [place] [address] Kris Wilkins MD [address] [facility] [address] [place] [address] Health Maintenance Due Date Last [...] 1-dose 75+ series) 2030 Insurance Care Teams Gas Mask Inspector Relationship Specialty Start Date End Date Robert Max DO [address] [phone] PCP - General Internal Medicine 11/23/22
--- OUTSIDE RECORDS SUMMARY | 2025-04-04 15:55 | XMS_ITS | Patient Health Record ---
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 Referred Provider Jason Benavides Referred Address [address] [place] [place], [place],[address], Referred Provider Specialty Allergy/Immu nology Referral Priority Routine Medications Medication SIG (Take, Route, Frequency, Duration) Notes Start Date End Date Status METOPROLOL 25 mg 1 tab(s) orally 2 times a day Active Triamcinolone Acetonide 0.1 % APPLY OINTMENT TOPICALLY THREE TIMES DAILY FOR 7 DAYS; Duration: 7 Active Triamcinolone Acetonide 0.1 % 1 doris applied topically 3 times a day; Duration: 7 day(s) Active Triamcinolone Acetonide 0.1 % 1 doris applied topically 3 times a day; Duration: 7 days Active Auvi-Q 0.3 MG/0.3ML as directed intramuscularly once; Duration: 1 dose(s) Active NASAL WASHES N/A DIRECTED INTRANASALLY NEEDED; Duration: 30 *Please review for potential replacement for e-prescription and drug interaction check* Active Flonase Allergy Relief 50 MCG/ACT 2 spray(s) in each nostril twice a day; Duration: 30 day(s) Active Singulair 10 MG 1 tab(s) orally once a day Active Atorvastatin Calcium 10 MG 1 tab(s) orally once a day Active Prevacid 30 MG 1 cap(s) orally once a day Active Celecoxib 200 MG Act natan Azelastine HCl 137 MCG/SPRAY 2 sprays in each nostril Nasally Twice a day; Duration: 30 days Active CELECOXIB 200 mg Act natan ATORVASTATIN 10 mg 1 tab(s) orally once a day Active PREVACID 30 mg 1 cap(s) orally once a day Active SINGULAIR 10 mg 1 tab(s) orally once a day Active COLACE sodium 100 mg 1 cap(s) orally 2 times a day Active SIT (TRADITIONAL) variable per schedule SC per schedule; Duration: to be determined Active FLONASE 50 mcg/inh 2 spray(s) in each nostril twice a day; Duration: 30 days Active Cetirizine HCl 10 MG 1 tablet Orally Once a day; Duration: 30 days Active AUVI -Q 0.3 mg as directed intramuscularly once; Duration: 1 dose(s) Active Azelastine HCl 137 MCG/SPRAY 2 sprays in each nostril Nasally Twice a day; Duration: 90 days Active Metoprolol Tartrate 25 MG 1 tab(s) orally 2 times a day Active Tatiana Allergy 180 MG 1 tab(s) orally once a day Not-Taking Colace 100 MG 1 cap(s) orally 2 times a day Not-Taking EpiPen 2-Johan 0.3 MG/0.3ML as directed intramuscularly once; Duration: 30 days Active Triamcinolone Acetonide 0.1 % 1 application Externally Twice a day; Duration: 30 days Active Nasal Washes N/A as directed intranasally Active Immunizations Vaccine Route Administration Date Status Comme nts NOC Pneumovax 23 Unknown 05/04/2020 Administered Portal Information Influenza Unknown 03/04/2021 Administered Portal Infor mation Social History Tobacco Use: Social History Observation Description Date Details (start date - stop date) Former Smoker NA - NA Sex Assigned At : Social History Observation Description Sex Assigned At Female Tobacco Control (Standard) Question Answer Notes Tobacco use: Former smoker AUDIT-C (Standard) Question Answer Notes Did you have a drink contain ing alcohol in the past year? Yes How often did you have a dri nk containing alcohol in the past year? 2 to 3 times a week (3 points) How many drinks did you have on a typical day when you were drinking in the past year? 1 or 2 drinks (0 point) How often did you have six o r more drinks on one occasion in the past year? Never (0 point) Points 3 Interpretation Positive Problems Problem Type SNOMED Code ICD Code Onset Dates Problem Status W/U Status Risk Notes Problem Hyperlipidemia (87462382) Hyperlipidemia, unspecified (E78.5) Active confirmed Problem Chronic allergic conjunctivitis (92757619) Other chronic allergic conjunctivitis (H10.45) Active confirmed Problem Allergic rhinitis caused by pollen (disorder) (76909857) Allergic rhinitis due to pollen (J30.1) Active confirmed Problem Allergic rhinitis (72019896) Other allergic rhinitis (J30.89) Active confirmed Problem Gastro-esophageal reflux disease without esophagitis (278545370) Gastro-esophageal reflux disease without esophagitis (K21.9) Active confirmed Problem Palpitations (02068658) Palpitations (R00.2) Active confirmed Problem Allergic rhinitis caused by animal hair and dander (932061987299936) Allergic rhinitis due to animal (cat) (dog) hair and dander (J30.81) Active confirmed Problem Eruption of skin (473142881) Rash and other nonspecific skin eruption (R21) Active confirmed Problem Chronic sinusitis (73472619) Chronic sinusitis, unspecified (J32.9) Active confirmed Vital Signs Oximetry 100 % 03/25/2025 Blood pressure diastolic 89 mm Hg 03/25/2025 Height 63 in 03/25/2025 Blood pressure systolic 146 mm Hg 03/25/2025 Weight 169.0 lbs 03/25/2025 BMI 29.93 kg/m2 03/25/2025 Encounters Encounter Location Date Provider Diagnosis [facility] [address] [place], [place] [address] [address] [address] 04/09/2024 Kristian Doll Allergic rhinitis du e to pollen J30.1 ; Other allergic rhinitis J30.89 ; Allergic rhinitis due to animal (cat) (dog) hair and dander J30.81 and Other chronic allergic conjunctivitis H10.[address] [address] 05/07/2024 Kristian Doll Allergic rhinitis du e to pollen J30.1 ; Other allergic rhinitis J30.89 ; Allergic rhinitis due to animal (cat) (dog) hair and dander J30.81 and Other chronic allergic conjunctivitis H10.45 [facility] [address] [place] [address] [facility] [address] [address] 06/18/2024 Kristian Doll Allergic rhinitis du e to pollen J30.1 ; Other allergic rhinitis J30.89 ; Allergic rhinitis due to animal (cat) (dog) hair and dander J30.81 and Other chronic allergic conjunctivitis H10.45 [facility] [address] [place] [address] [facility] [address] [address] 07/30/2024 Kristian Doll Allergic rhinitis du e to pollen J30.1 ; Other allergic rhinitis J30.89 ; Allergic rhinitis due to animal (cat) (dog) hair and dander J30.81 and Other chronic allergic conjunctivitis H10.45 [facility] [address] [place] [address] [facility] [address] [address] 08/06/2024 Kristian Doll Allergic rhinitis du e to pollen J30.1 ; Other allergic rhinitis J30.89 ; Allergic rhinitis due to animal (cat) (dog) hair and dander J30.81 and Other chronic allergic conjunctivitis H10.45 [facility] [address] [place] [address] [facility] [address] [address] 08/14/2024 Kristian Doll Allergic rhinitis du e to pollen J30.1 ; Other allergic rhinitis J30.89 ; Allergic rhinitis due to animal (cat) (dog) hair and dander J30.81 and Other chronic allergic conjunctivitis H10.45 [facility] [address] [place] [address] [facility] [address] [address] 09/03/2024 Jason Benavides Allergic rhinitis du e to pollen J30.1 ; Allergic rhinitis due to animal (cat) (dog) hair and dander J30.81 ; Other allergic rhinitis J30.89 ; Other chronic allergic conjunctivitis H10.45 ; Chronic sinusitis, unspecified J32.9 ; Palpitations R00.2 and Rash and other nonspecific skin eruption R21 [facility] [address] [facility] [address] [address] 10/01/2024 Kristian Lavon Allergic rhinitis du e to pollen J30.1 ; Other allergic rhinitis J30.89 ; Allergic rhinitis due to animal (cat) (dog) hair and dander J30.81 and Other chronic allergic conjunctivitis H10.45 [facility] [address] [place] [address] 10/30/2024 Kristian Lavon Allergic rhinitis du e to pollen J30.1 ; Other allergic rhinitis J30.89 ; Allergic rhinitis due to animal (cat) (dog) hair and dander J30.81 and Other chronic allergic conjunctivitis H10.45 [facility] [address] [place] [address] 11/27/2024 Kristian Lavon Allergic rhinitis du e to pollen J30.1 ; Other allergic rhinitis J30.89 ; Allergic rhinitis due to animal (cat) (dog) hair and dander J30.81 and Other chronic allergic conjunctivitis H10.45 [facility] [address] [place] [address] 01/01/2025 Kristian Lavon Allergic rhinitis du e to pollen J30.1 ; Other allergic rhinitis J30.89 ; Allergic rhinitis due to animal (cat) (dog) hair and dander J30.81 and Other chronic allergic conjunctivitis H10.45 [facility] [address] [place] [address] 01/15/2025 Kristianmaik Doll Allergic rhinitis du e to pollen J30.1 ; Other allergic rhinitis J30.89 ; Allergic rhinitis due to animal (cat) (dog) hair and dander J30.81 and Other chronic allergic conjunctivitis H10.45 [facility] [address] [place] [address] [place] [address] 01/29/2025 Kristianmaik Doll Allergic rhinitis du e to pollen J30.1 ; Other allergic rhinitis J30.89 ; Allergic rhinitis due to animal (cat) (dog) hair and dander J30.81 and Other chronic allergic conjunctivitis H10.45 [facility] [address] [place] [address] [place] [address] 02/12/2025 Kristian Doll Allergic rhinitis du e to pollen J30.1 ; Other allergic rhinitis J30.89 ; Allergic rhinitis due to animal (cat) (dog) hair and dander J30.81 and Other chronic allergic conjunctivitis H10.[address] [address] 03/07/2025 Kristian Doll Allergic rhinitis du e to pollen J30.1 ; Other allergic rhinitis J30.89 ; Allergic rhinitis due to animal (cat) (dog) hair and dander J30.81 and Other chronic allergic conjunctivitis H10.[address] [address] 03/25/2025 Niurka Navarro Allergic rhinitis du e to pollen J30.1 ; Allergic rhinitis due to animal (cat) (dog) hair and dander J30.81 ; Other allergic rhinitis J30.89 ; Other chronic allergic conjunctivitis H10.45 ; Chronic sinusitis, unspecified J32.9 ; Palpitations R00.2 ; Rash and other nonspecific skin eruption R21 and Elevated blood-pressure reading, without diagnosis of hypertension R03.[address] [address] 01/02/2025 Niurka Navarro Assessments Encounter Date Diagnosis (ICD Code) Assessment Notes Treatment Notes Treatment Clinical Notes Section Notes 04/09/2024 Allergic rhinitis due to pollen (ICD-10 [...] rhinitis due to pollen (ICD-10 - J30.1) 01/15/2025 Allergic rhinitis due to pollen (ICD-10 - J30.1) 01/29/2025 Allergic rhinitis due to pollen (ICD-10 - J30.1) 02/12/2025 Allergic rhinitis due to pollen (ICD-10 - J30.1) 03/07/2025 Allergic rhinitis due to pollen (ICD-10 - J30.1) 03/25/2025 Allergic rhinitis due to pollen (ICD-10 - J30.1) Hilda clearly suffers from atopic disease based upon our skin testing and clinical history. - Continues meds and SCIT, contines on SCIT at . She reports increased symptoms this summer, increased her dosing frequency with benefit. - Procedure tolerated today without issue - Continue medication regimen as above. - Increase SCIT frequency in peak seasons PRN - Follow-up as scheduled for SCIT and in 6 months for further evaluation and management 03/25/2025 Allergic rhinitis due to animal (cat) (dog) hair and dander (ICD-10 - J30.81) Follow allergen avoidance, meds and continue SCIT as an adjunctive treatment to current regimen 03/07/2025 Other allergic rhinitis (ICD-10 - J30.89) 03/25/2025 Other allergic rhinitis (ICD-10 - J30.89) Follow allergen avoidance, meds and continue SCIT as an adjunctive treatment to current regimen 02/12/2025 Other allergic rhinitis (ICD-10 - J30.89) 01/29/2025 Other allergic rhinitis (ICD-10 - J30.89) 01/15/2025 Other allergic rhinitis (ICD-10 - J30.89) 01/01/2025 Other allergic rhinitis (ICD-10 - J30.89) 11/27/2024 Other allergic rhinitis (ICD-10 - J30.89) 10/30/2024 [...] 04/09/2024 Other allergic rhinitis (ICD-10 - J30.89) 04/09/2024 Allergic rhinitis due to animal (cat) [...] (dog) hair and dander (ICD-10 - J30.81) 01/15/2025 Allergic rhinitis due to animal (cat) (dog) hair and dander (ICD-10 - J30.81) 01/29/2025 Allergic rhinitis due to animal (cat) (dog) hair and dander (ICD-10 - J30.81) 02/12/2025 Allergic rhinitis due to animal (cat) (dog) hair and dander (ICD-10 - J30.81) 03/07/2025 Allergic rhinitis due to animal (cat) (dog) hair and dander (ICD-10 - J30.81) 03/25/2025 Other chronic allergic conjunctivitis (ICD-10 - H10.45) Given ocular signs and symptoms I encouraged allergy avoidance measures and meds as above. If symptoms persist, consider adding additional medications including intraocular antihistamine/ma st cell stabilizer, PRN and continue SCIT as an adjunctive measure 03/25/2025 Chronic sinusitis, unspecified (ICD-10 - J32.9) Recurrent infections, typically 1-2 yearly with some years up to 3-4, last infection Fall 2020. None since then - Previously discussed PID workup, though does follow with Process Area Supervisor. If repeat infection occurs we will obtain labs. No interval infections 03/07/2025 Other chronic allergic conjunctivitis (ICD-10 - H10.45) 02/12/2025 Other chronic allergic conjunctivitis (ICD-10 - H10.45) 01/29/2025 Other chronic allergic conjunctivitis (ICD-10 - H10.45) 01/15/2025 Other chronic allergic conjunctivitis (ICD-10 - H10.45) 01/01/2025 Other chronic allergic conjunctivitis (ICD-10 - H10.45) 11/27/2024 Other chronic allergic conjunctivitis (ICD-10 - H10.45) 10/30/2024 Other chronic allergic conjunctivitis (ICD-10 - H10.45) 09/03/2024 Chronic sinusitis, unspecified (ICD-10 - J32.9) Recurrent infections, typically 1-2 yearly with some years up to 3-4, last infection Fall 2020. None sicne then - Previosuly discussed PID workup, though does follow with Process Area Supervisor. If repeat infection occurs would check. [...] Other chronic allergic conjunctivitis (ICD-10 - H10.45) 04/09/2024 Other chronic allergic conjunctivitis (ICD-10 - H10.45) 09/03/2024 Palpitations (ICD-10 - R00.2) We discussed the difficulty in treating systemic reactions in patients taking beta blockers, if she chooses to purse allergy shots -she is aware to hold and resumed 2 hours after shots 03/25/2025 Palpitations (ICD-10 - R00.2) We discussed the difficulty in treating systemic reactions in patients taking beta blockers, if she chooses to purse allergy shots - She is aware to hold and resumed 2 [...] + to [facility]. Now avoiding with benefit 03/25/2025 Rash and other nonspecific skin eruption (ICD-10 - R21) Noted dry patches to hand, back, and legs for the past year noted to be pruritic without clear trigger. No erythema noted. Noted improved with soak and smear technique along with switch to preservative and dye-free products. Admits to treating hands with TAC for a month before resolution. Was seen by dermatology after extensive breakthrough in [place]. S/p patch testing + to [facility]. Now avoiding with benefit 03/25/2025 Elevated blood-pressure reading, without diagnosis of hypertension (ICD-10 - R03.0) BP elevated today without symptoms of urgency or emergency. Continue serial checks and follow-up with PCP Plan Of Treatment Next Appt Details Provider Name:Kristian Rosales Lavon , 04/22/2025 11:00:00 AM, [address] [facility], [address], [address], Insurance Providers Payer Name Payer Address Payer Phone Subscriber Number Group Number Insured Name Patient Relationship to Insured Coverage Start Date Coverage End Date [employer] [address] [address] [place] [address] [id number] Hilda Mixon Self - patient is [...]
--- OUTSIDE RECORDS SUMMARY | 2025-04-04 15:55 | XMS_ITS | Encounter Summary ---
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 Name Role Phone Robert Max DO Primary Care Provider [phone] Encounter Details Date Type Department Care Team (Late st Contact Info) Description 02/04/2025 Results Follow-Up [facility] Cardiology [address] [facility] Advanced Medicine 8th [place] [address] [place] [address] Radha Nicholson, SILVESTRE [address] [facility] [address] [place] [address] ECG 12 lead, Comprehensive metabolic panel Social History Tobacco Use Types Packs/Day Years [...] on filedocumented in this encounter Care Teams Tire Fabric Inspector Relationship Specialty Start Date End Date Robert Max DO PCP - General Internal Medicine 03/14/24 documented as of this encounter
--- OUTSIDE RECORDS SUMMARY | 2025-04-04 15:56 | XMS_ITS | Clinical Summary ---
Author Organization [facility] Address [address] [place] [address] Care Team Providers Care Election Judge Name Role Phone Anca Parnell MD Primary Care Provider + Source Comments [facility],non-owned Affiliates and Associated Physician Practices is amultiple site organization consisting of ambulatory clinics and hospital sitesin [place], [place], [place] and [place]. This disclosure is being madepursuant to the Care Everywhere program and may not contain all information available regarding this patient. Last updated 18.[facility] Immunizations Immunization Administration Dates Next Due [...] 2005 ZOSTER VACCINE (1 of 2) 2005 DEPRESSION SCREENING 07/04/2024 COVID-19 VACCINE (1 - 2023-2 5 season) 2025 INFLUENZA VACCINE (#1) 2025 03/22/2016 Respiratory Syncytial Virus (RSV) Vaccine Pt: or [...] patient's age to complete this topic Insurance [facility] Address: [facility] [address] [place] [address] [employer] SELF PAY NO INSURANCE Member Subscriber Plan / Payer (Ef fective for All Dates) Name:Hilda Morton Member ID:Not on file Relation to Subscriber:Not on file Name:HILDA MORTON Subscriber ID:Not on file Address: [address] [place], [place] [address] Payer ID:Not on file Group ID:Not on file Type:Self Pay Address: [place], [place] [employer] [facility] Address: [facility] [address] [place] [phone] SELF PAY NO INSURANCE Member Subscriber Plan / Payer (Ef fective for All Dates) Name:Hilda Morton Member ID:Not on file Relation to Subscriber:Not on file Name:HILDA MORTON Subscriber ID:Not on file Address: [address] [place] [phone] Payer ID:Not on file Group ID:Not on file Type:Self Pay Address: [place], [place] Care Teams Election Judge Relationship Specialty Start Date End Date Anca Parnell MD [address] [place] [address] PCP - General 07/25/18
--- OUTSIDE RECORDS SUMMARY | 2025-04-04 15:56 | XMS_ITS | Clinical Summary ---
Author Organization [facility] [place] [address] Address [address] [place] [address] Care Team Providers Care Jackspooler Name Role Phone Robert Max DO Primary Care Provider [phone] Allergies No known active allergies Medications montelukast (SINGULAIR) 10 mg tabletIndication s:Seasonal Allergic Rhinitis Take 1 tablet (10 mg total) by mouth nightly Active cholecalciferol (VITAMIN D-3) 5,000 unit tabletIndication s:Osteoporosis,V itamin D Deficiency Take 1 tablet (5,000 Units total) by mouth every morning Active atorvastatin (LIPITOR) 10 mg tabletIndication s:hyperlipidemia [...] total) by mouth daily after lunch Active inulin (FIBER GUMMIES ORAL)Indications :Gut health Take 2 tablet/chew tab by mouth every morning Active acetaminophen (TYLENOL) 500 mg tabletIndication s:Pain Take 2 tablets (1,000 mg total) by mouth every 6 (six) hours as needed for pain Active simethicone (GAS-X ORAL)Indications :gas Take 2 tablets by mouth 2 (two) times a day as needed (gas) Active cetirizine (ZyrTEC) 10 mg tablet Take 1 tablet (10 mg total) by mouth daily 4 Active metoprolol tartrate (LOPRESSOR) 25 mg immediate release tablet Take 1.5 tablets (37.5 mg total) by mouth 2 (two) times a day 270 tablet 3 5 Active flecainide (TAMBOCOR) 50 mg tablet Take 1 tablet (50 mg total) by mouth 2 (two) times a day 180 tablet 1 5 08/03/19 26 Active Active Problems Problem Noted Date Diagnosed Date Chest heaviness 10/12/2024 PVC (premature ventricular contraction) 05/08/20 24 Assessment & Plan (08/02/2024 1:51 PM OPERATIONS EXAMINER): -Continue metoprolol for PVCs Assessment & Plan (05/08/2024 4:06 PM OPERATIONS EXAMINER): - Continue metoprolol for PVCs - If palpitations increase, can consider 3 day Holter SVT (supraventricular tachycardia) 03/28/2024 Assessment & Plan (02/04/2025 11:36 AM CDT): Atrial tachycardia - 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 - Limited ablation was applied at earliest [...] to decrease risk of SND/need for PPM. -Flecainide started in November 2024 for recurrent atrial tachycardia -Symptoms improved on flecainide, but has short breakthrough episodes which are overall tolerable. She is not interested in increasing flecainide or considering repeat ablation at this time. -Continue flecainide 50 mg BID, QRS duration stable -EKG and CMP every 6 months for monitoring of side effects/toxicities of high risk medication flecainide -She will try take metoprolol 25 mg TID to see if it better controls her late afternoon palpitations -Repeat ablation could be offered but we must be mindful of the risk of sinus node dysfunction and possible need for PPM. This risk is low but still higher than most given origin Assessment & Plan (08/03/2024 8:50 AM OPERATIONS EXAMINER): Atrial tachycardia - Multiple atrial tachycardias originating [...] BID Assessment & Plan (05/08/2024 4:06 PM OPERATIONS EXAMINER): Atrial tachycardia - Multiple atrial tachycardias originating [...] Encounters Date Type Department Care Team Description 04/01/2025 11:25 AM CDT - 04/01/2025 11:59 PM CDT Hospital Encounter [facility] [address] [place] [address] Arrived Discharge Disposition: Discharge to home or self care 04/01/2025 11:00 AM CDT Office Visit [facility] Medicine Orthopaedic Surgery [address] [facility] [address] [place] [phone] Kvng Lieberman PA Arthritis of right glenohumeral joint (Primary Dx); Right shoulder pain, unspecified chronicity 02/04/2025 10:50 AM CDT Lab [facility] [address] [place] [address] Supraventricular tachycardia; PVC (premature ventricular contraction); High risk medication use 02/04/2025 10:00 AM CDT Office Visit [facility] Medicine Cardiology [address] [facility] [address] [place] [phone] Radha Nicholson NP Supraventricular tachycardia (Primary Dx); PVC (premature ventricular contraction); High risk medication use; SVT (supraventricular tachycardia); PSVT (paroxysmal supraventricular tachycardia) 02/04/2025 Results Follow-Up [facility] Medicine Cardiology [address] [facility] [address] [place] [address] [place] [phone] Radha Nicholson NP ECG 12 lead, Comprehensive metabolic panel 01/16/2025 Telephone [facility] Cardiology [address] [facility] [address] [place] [address] [place] [phone] Ralph Mora MD from Last 3 Months Surgical History Surgery Date Site/Laterality Comments CARPAL TUNNEL RELEASE OTHER SURGICAL HISTORY 07/04/2015 - 07/03/2016 LATERAL MENISCAL REPAIR OTHER SURGICAL HISTORY 07/04/1976 - 07/03/1977 TRANSPLANT- ULNAR NERVE TONSILLECTOMY Medical History Medical History Date Comments Palpitations GERD (gastroesophageal reflux disease) Hyperlipidemia Pancytopenia Skin cancer Arthritis 2018 PONV (postoperative nausea [...] Sign Reading Time Taken Comments Blood Pressure 130/70 02/04/2025 10:09 AM CDT Pulse 54 02/04/2025 10:09 AM CDT Temperature - - Respiratory Rate 26 03/28/2024 4:55 PM CDT Oxygen Saturation 98% 02/04/2025 10:09 AM CDT Inhaled Oxygen Concentration - - Weight 75.3 kg (166 lb) 04/01/2025 10:45 AM CDT Height 160 cm (5' 3) 04/01/2025 10:45 AM CDT Body Mass Index 29.41 04/01/2025 10:45 AM CDT Plan of Treatment Health Maintenance Due Date Last Done Comments Breast Cancer Screening-Mammogram 1955 Colon Cancer Screening-Colonoscopy 1955 Depression Screening 1955 Hepatitis C Screening 1955 Osteoporosis Screening-Bone Density Scan 1955 Hepatitis B Screening 1973 Well Visit 65+ 2020 Pneumococcal vaccine 65+ (2 of 2 - PCV) 04/18/2021 04/18/2020 Covid-19 Vaccine (7 - 2024-2 6 season) 2025 03/22/2023, 04/03/2022, 10/29/2021, Additional history exists Influenza Vaccine (#1) 2025 , 03/22/2023, 04/20/2022, Additional history exists Fall Risk Assessment 03/28/2025 03/28/2024 DTaP/Tdap/Td Vaccine (2 - Td or Tdap) 12/06/2034 12/06/2024 Zoster Vaccine Completed 02/19/2021, 12/04/2020 Medical Devices Implanted Type Area Private Client Advisor Device Identifier Shelf Expiration Date Model / Serial / Lot [employer] Device Closure Vascade Od5 Fr Femoral Artery [id number] - [id number] Implanted:Qty: 1 on 03/28/2024 by Ralph Mora MD at [facility] Vascular Closure Device [employer] 09/21/2025 700-500DX- [id number] / / [id number] [employer] Device Closure Vascade Od5 Fr Femoral Artery [id number] - [id number] Implanted:Qty: 1 on 03/28/2024 by Ralph Mora MD at [facility] Vascular Closure Device [employer] 11/28/2025 700-500DX- [id number] / / [id number] [employer] Vascade Mvp 6-12fr Venous Closure [id number] - [id number] Implanted:Qty: 1 on 03/28/2024 by Ralph Mora MD at [facility] Vascular Closure Device [employer] 10/30/2025 [id number]-[id number] [id number] / / [id number] [employer] Vascade Mvp 6-12fr Venous Closure [id number] - [id number] Implanted:Qty: 1 on 03/28/2024 by Ralph Mora MD at [facility] Vascular Closure Device [employer] 10/30/2025 800-612C-[id number] [id number] / / [id number] Procedures Procedure Name Priority Date/Time Associated Diagnosis Comments XR TRANSFER OF OUTSIDE FILMS Routine 04/01/2025 11:25 AM CDT EGFR Routine 02/04/2025 10:54 AM CDT Supraventricular tachycardia PVC (premature ventricular contraction) High risk medication use COMPREHENSIVE METABOLIC PANEL Routine 02/04/2025 10:54 AM CDT Supraventricular tachycardia PVC (premature ventricular contraction) High risk medication use ECG 12-LEAD Routine 02/04/2025 10:13 AM CDT Supraventricular tachycardia from Last 3 Months Results * XR Outside Reference (04/01/2025 11:25 AM CDT) Impressions [facility] - 04/01/2025 11:25 AM CDT These images are for Reference purposes only and have not been reviewed by [facility] Radiology. There will be no report generated by a [facility] Radiologist. Narrative [facility] - 04/01/2025 11:25 AM CDT EXAMINATION: Images For Reference Purposes Only Kvng GILES IMG XR PROCEDURES Final Result Performing Organization Address City/[facility]/ZIP Co de Phone Number [facility] * eGFR (02/04/2025 10:54 AM CDT) eGFR 67 >=60 mL/min/1. 73 m2 Comment: Interpretive Data Reference Interval Normal >/= 90 mL/min/1.73m2 Mildly decreased* 60 - 89 mL/min/1.73m2 Mildly to moderately decreased 45 - 59 mL/min/1.73m2 Moderately to severely decreased 30 - 44 mL/min/1.73m2 Severely decreased 15 - 29 mL/min/1.73m2 Kidney Failure < 15 mL/min/1.73m2 *Relative to young adult level Estimated glomerular filtration rate is determined by the 2020 CKD-EPI equation recommended by the National Kidney Foundation (A Unifying Approach to GFR Estimation: Recommendations of the NKF-ASK Task Force on Reassessing the Inclusion of Race in Diagnosing Kidney Disease, JASN 2020). The CKD-EPI equation should not be used for patients with unstable renal function and has not been validated in children and those over 70. Current interpretive data was last reviewed 2021. Blood 02/04/2025 10:5 4 AM CDT 02/04/2025 11:52 AM CDT us Radha Nicholson NP LAB BLOOD ORDERABLES Claudia l Result Performing Organization Address [facility] Co de Phone Number [facility] [address] [facility]. [place] [address] * (ABNORMAL) Comprehensive metabolic panel (02/04/2025 10:54 AM CDT) Sodium 134(L) 135 - 145 mmol/L Potassium, pl 4.5 3.3 - 4.9 mmol/L [facility] Chloride 99 97 - 110 mmol/L [facility] CO2 27 22 - 32 mmol/L [facility] Anion gap 8 2 - 15 mmol/L [facility] BUN 12 6 - 25 mg/dL [facility] Creatinine 0.93 0.60 - 1.10 mg/dL [facility] Glucose 110 70 - 199 mg/dL [facility] Comment: Interpretive Data Fasting glucose >/= 126 mg/dl is diagnostic for diabetes. Fasting is defined as no caloric intake for at least 8 hours. Fasting glucose between 100 mg/dl to 125 mg/dl is diagnostic of prediabetes. In a patient with classic symptoms of hyperglycemia or hyperglycemic crisis, a random glucose >/= 200 mg/dl is diagnostic for diabetes. In the absence of unequivocal hyperglycemia, results should be confirmed by repeat testing. The classification and Diagnosis of Diabetes Diabetes Care 2021; 46: S19-S40. Current interpretive data was last revised 2022. Calcium 9.6 8.5 - 10.3 mg/dL [facility] Bilirubin, total 0.5 0.1 - 1.2 mg/dL [facility] Protein, pl 7.2 6.5 - 8.5 g/dL [facility] Albumin 4.5 3.5 - 5.0 g/dL [facility] Alk phos 62 40 - 130 Units/L [facility] ALT 16 7 - 45 Units/L [facility] AST 21 10 - 45 Units/L [facility] Blood 02/04/2025 10:5 4 AM CDT 02/04/2025 11:52 AM CDT Radha Nicholson NP LAB BLOOD ORDERABLES Claudia willson Result [facility] [address] [facility] [place] [address] * ECG 12 lead (02/04/2025 10:13 AM CDT) Radha Nicholson NP ECG ORDERABLES Edited Re sult - Final from Last 3 Months Insurance [facility] Care Teams Jackspooler Relationship Specialty Start Date End Date Robret Max DO PCP - General Internal Medicine 03/14/24
== END 2025-04-04 15:53 | disposition home or self-care (01) ==
LOC: ANHFOHIMG 15:54
PROVIDERS: PCP Internal Medicine; Visit Provider Internal Medicine
DX: Z12.31 Encounter for screening mammogram for malignant neoplasm of breast (principal)
CPT/HCPCS: 77063; 77067